=== PATIENT | female | born 1940 | race Caucasian/White ===

== ENCOUNTER 2016-12-03 19:01 | Emergency (ER) | payer OTHER, MEDICARE ==
[~2016-12-03] VITALS: Ht 165.1 cm; Wt 113.1 kg
[~2016-12-03 19:01] MED LIST: ALLO300T2 PO; AMLO-110 PO; FRS/40 PO; LEVO150T PO; METO50TA16 PO; TYL325X PO
[2016-12-03 19:05] VITALS: TEMP 37.1; Ht 165.1 cm; Wt 113.1 kg
[2016-12-03] MEDS ORDERED: HYDROCODONE/ACETAMOPHEN 5/325MG TAB PO STA (19:27)
[2016-12-03 20:04] LABS: BASO % 0.4 %; BASO ABS # 0.04 K/uL (0-0.2); COMPLETE YES; EOS % 1.3 %; HEMATOCRIT 40.2 % (37-47); IG% 0.2 %; LYMPH % 18.9 %; LYMPH ABS # 1.79 K/uL (1.2-3.4); MEAN CELL VOLUME 103.9 fL (80-100); MEAN CORPUSCULAR HEMOGLOBIN 34.6 pg (25-34); MEAN CORPUSCULAR HGB CONC 33.3 g/dl (32-36); MEAN PLATELET VOLUME 10.9 fL (7.4-10.4); MONO % 6.3 %; NEUT % 72.9 %; PLATELET COUNT 106 K/uL (130-400); RED BLOOD COUNT 3.87 M/uL (4.2-5.4); WHITE BLOOD COUNT 9.46 K/uL (4.8-10.8)
--- NOTE | 2016-12-03 20:12 | EMERGENCY ROOM VISIT NOTE ---
History Report prepared by Marichuy: Rigoberto Reese Under the Supervision of: Dr. Nora Hankins D.O. First contact with patient: 19:12 Chief Complaint: SHOULDER PAIN Stated Complaint: LEFT SHOULDER PAIN History of Present Illness The patient is a 76 year old female who presents to the Emergency Room with complaints of constant shoulder pain beginning 3 days ago. She reports that her shoulder pain does not go down her arms. She reports that she had a triple bypass last December that was accompanied by shoulder pain but notes that her current shoulder pain does not feel similar to her previous pain. The patient also states that she has back pain that is centralized in her upper back. She reports that she had two previous lower back surgeries but has no previous history of upper back pain. She notes that her pain is improved by heat but worsens when she uses her walker. The patient also complains of diaphoresis. She denies any numbness, headache, SOB, chest pain, and nausea. She notes taking a Tylenol for her pain, but states that she did not take an aspirin due to being on dialysis. She notes a low BP this morning when she was receiving her dialysis treatment. Source of History: patient Onset: three days ago Position: shoulder (left) Timing: constant Modifying Factors (Worsening): movement (with her walker) Modifying Factors (Relieving): heat Associated Symptoms: + diaphoresis, No headache, No chest pain, No SOB, No nausea, No numbness Review of Systems See HPI for pertinent positives & negatives. A total of 10 systems reviewed and were otherwise negative. Past Medical & Surgical Medical Problems: (1) Anemia (2) Benign hypertension (3) Diabetes mellitus (4) Kidney stone (5) Postmenopausal bleeding (6) Recurrent urinary tract infection Surgical Problems: (1) Back surgery (2) Cholecystectomy Family History Diabetes mellitus FH: gallbladder disease FH: heart disease Hypertension Social History Smoking Status: Never Smoker Alcohol Use: none Drug Use: none Marital Status: Housing Status: lives alone Occupation Status: unemployed Current/Historical Medications Scheduled Aspirin (Aspirin Ec), 81 MG PO DAILY Atorvastatin (Lipitor), 80 MG PO QPM Calcium Acetate (Phoslo 667 Mg), 1 CAP PO SNACKS Calcium Acetate (Phosphate Bin (Phoslo 667 Mg), 3 CAN PO TIDM Cyclobenzaprine Hcl (Flexeril), 5 MG PO TID Epoetin Marv (Epogen), 10,000 UNITS SQ 3XWK Famotidine (Famotidine), 20 MG PO DAILY Levothyroxine Sodium (Levothyroxine Sodium), 150 MCG PO DAILY [Pro Renal Vitamin], 1 TAB PO DAILY Scheduled PRN Hydrocodon/Acetaminophen 5MG/300MG (Vicodin (5MG/300MG)), 1 TAB PO Q6H PRN for Pain Laxative (Laxative), 1 CAP PO DAILY PRN for Constipation Lorazepam (Lorazepam), 1 MG PO DAILY PRN for Anxiety Tramadol HCl (Tramadol HCl), 1 TAB PO BID PRN for Pain Allergies Coded Allergies: Oxycodone (Verified Allergy, Unknown, nausea, 05/27/15) Penicillins (Verified Allergy, Unknown, SWELLING/HIVES, 05/27/15) DOCTOR TOLD MOTHER WHEN SHE WAS 10 YEARS OLD SHE SHOULDN'T TAKE IT. Physical Exam Vital Signs Date Time Temp Pulse Resp B/P (MAP) Pulse Ox O2 Delivery O2 Flow Rate FiO2 12/03/16 21:52 70 20 107/63 94 Room Air 12/03/16 20:55 79 20 125/52 93 Room Air 12/03/16 19:05 37.1 92 20 135/69 94 Room Air Physical Exam GENERAL: alert, well appearing, well nourished, no distress, non-toxic EYE EXAM: normal conjunctiva, PERRL and EOM's grossly intact OROPHARYNX: no exudate, no erythema, lips, buccal mucosa, and tongue normal and mucous membranes are moist NECK: supple, no nuchal rigidity, no adenopathy, non-tender, no step off, no midline tenderness LUNGS: Clear to auscultation. Normal chest wall mechanics HEART: no murmurs, S1 normal and S2 normal ABDOMEN: abdomen soft, non-tender, normo-active bowel sounds, no masses, no rebound or guarding. BACK: Back is symmetrical on inspection and there is no deformity, no midline tenderness, no CVA tenderness, mild tenderness to palpation to left trapezius SKIN: no rashes and no bruising UPPER EXTREMITIES: upper extremities are grossly normal, left upper extremity with fistula, positive thrill, positive bruit LOWER EXTREMITIES: No pitting edema. NEURO EXAM: Normal sensorium, cranial nerves II-XII [grossly] intact, normal speech, no [gross] weakness of arms, no [gross] weakness of legs. [No drift. Finger to nose intact. Gross sensation intact.] Medical Decision & Procedures ER Provider Diagnostic Interpretation: Radiology results have been interpreted by the radiologist and reviewed by me. CHEST ONE VIEW PORTABLE HISTORY: left shoulder pain COMPARISON: Chest 12/23/2015. FINDINGS: Poststernotomy changes. The heart remains mildly enlarged. No pleural effusions. No pneumothorax. No focal lung consolidations to suggest pneumonia. Mild interstitial thickening which is likely chronic. This remains unchanged. No evidence for pulmonary edema. IMPRESSION: Stable mild cardiomegaly and mild chronic interstitial thickening. No acute process within the chest. Electronically signed by: Norbert Lanza M.D. 12/03/2016 8:33 PM LEFT SHOULDER 3 VIEWS HISTORY: left shoulder pain COMPARISON: None. FINDINGS: There is no fracture or dislocation. The left clavicle is intact. Small focal calcification at the distal supraspinatus tendon. Mild degenerative changes within the acromioclavicular and glenohumeral joints. IMPRESSION: 1. No acute fracture or dislocation within the left shoulder. 2. Supraspinatus calcific tendinitis. Electronically signed by: Norbert Lanza M.D. 12/03/2016 8:32 PM Laboratory Results 12/03/16 19:50 Red Blood Count 3.87, Mean Corpuscular Volume 103.9, Mean Corpuscular Hemoglobin 34.6, Mean Corpuscular Hemoglobin Concent 33.3, Mean Platelet Volume 10.9, Neutrophils (%) (Auto) 72.9, Lymphocytes (%) (Auto) 18.9, Monocytes (%) ( Auto) 6.3, Eosinophils (%) (Auto) 1.3, Basophils (%) (Auto) 0.4, Neutrophils # ( Auto) 6.89, Lymphocytes # (Auto) 1.79, Monocytes # (Auto) 0.60, Eosinophils # ( Auto) 0.12, Basophils # (Auto) 0.04 12/03/16 19:50 Test 12/03/16 19:50 White Blood Count 9.46 K/uL (4.8-10.8) Red Blood Count 3.87 M/uL (4.2-5.4) Hemoglobin 13.4 g/dL (12.0-16.0) Hematocrit 40.2 % (37-47) Mean Corpuscular Volume 103.9 fL (80-100) Mean Corpuscular Hemoglobin 34.6 pg (25-34) Mean Corpuscular Hemoglobin Concent 33.3 g/dl (32-36) Platelet Count 106 K/uL (130-400) Mean Platelet Volume 10.9 fL (7.4-10.4) Neutrophils (%) (Auto) 72.9 % Lymphocytes (%) (Auto) 18.9 % Monocytes (%) (Auto) 6.3 % Eosinophils (%) (Auto) 1.3 % Basophils (%) (Auto) 0.4 % Neutrophils # (Auto) 6.89 K/uL (1.4-6.5) Lymphocytes # (Auto) 1.79 K/uL (1.2-3.4) Monocytes # (Auto) 0.60 K/uL (0.11-0.59) Eosinophils # (Auto) 0.12 K/uL (0-0.5) Basophils # (Auto) 0.04 K/uL (0-0.2) RDW Standard Deviation 57.7 fL (36.4-46.3) RDW Coefficient of Variation 15.4 % (11.5-14.5) Immature Granulocyte % (Auto) 0.2 % Immature Granulocyte # (Auto) 0.02 K/uL (0.00-0.02) Anion Gap 9.0 mmol/L (3-11) Est Creatinine Clear Calc Drug Dose 10.9 ml/min Estimated GFR () 8.0 Estimated GFR (Non- 6.9 BUN/Creatinine Ratio 4.0 (10-20) Calcium Level 9.7 mg/dl (8.5-10.1) Total Bilirubin 0.4 mg/dl (0.2-1) Aspartate Amino Transf (AST/SGOT) 23 U/L (15-37) Alanine Aminotransferase (ALT/SGPT) 26 U/L (12-78) Alkaline Phosphatase 83 U/L (45-117) Troponin I 0.023 ng/ml (0-0.045) Total Protein 8.1 gm/dl (6.4-8.2) Albumin 3.4 gm/dl (3.4-5.0) Globulin 4.7 gm/dl (2.5-4.0) Albumin/Globulin Ratio 0.7 (0.9-2) Laboratory results per my review. Medications Administered Medications (Trade) Dose Ordered Sig/Mariano Route Start Time Stop Time Status Last Admin Dose Admin Acetaminophen/ Hydrocodone Bitart ([place] 5/325 Tab) 1 tab NOW STAT PO 12/03/16 19:27 12/03/16 19:29 DC 12/03/16 19:37 1 TAB Cyclobenzaprine HCl (Flexeril Tab) 5 mg NOW STAT PO 12/03/16 21:02 12/03/16 21:03 DC 12/03/16 21:22 5 MG ED Course 1918: The patient was evaluated in room C5. A complete history and physical exam was performed. 1926: [place] 5/325 Tab 1 tab PO 2056: I reevaluated and updated the patient 2101: Flexeril Tab 5mg PO Medical Decision Differential diagnosis: Etiologies such as cardiac ischemia, aortic dissection, pulmonary embolism, pneumonia, pneumothorax, musculoskeletal, infections, pericarditis, myocarditis , esophageal rupture, gastrointestinal, as well as others were entertained. Doubt posterior left shoulder and left upper back pain related to ACS, dissection, perf, gi bleed, pneumothorax, infiltrate. Trop negative after >24 hrs of pain. Pt well appearing here. VS stable, no hypoxia. Doubt complication of HD. Pt has been compliant. Doubt occult infection. Doubt PE. pt well appearing and improved following muscle relaxer. Discussed with her follow-up with PCP. More suspicious given left paraspinal origin of pain that sx possibly from lower cervical radiculopathy, DDD/DJD of upper back and neck in light of body habitus/prior back hx. Discussed with pt sx to watch/return for, use of meds including adr's, she verbalized understanding and was agreeable with plan. Medication Reconcilliation Current Medication List: was personally reviewed by me Blood Pressure Screening Patient's blood pressure: Normal blood pressure Blood pressure disposition: Did not require urgent referral Impression Primary Impression: Shoulder pain, left Scribe Attestation The scribe's documentation has been prepared under my direction and personally reviewed by me in its entirety. I confirm that the note above accurately reflects all work, treatment, procedures, and medical decision making performed by me. Departure Information Dispostion Home / Self-Care Prescriptions Hydrocodon/Acetaminophen 5MG/300MG (VICODIN (5MG/300MG)) 1 Tab Tab 1 TAB PO Q6H Y for Pain, #10 TAB Prov: Nora HankinsTristan, DO 12/03/16 Cyclobenzaprine Hcl (FLEXERIL) 5 Mg Tab 5 MG PO TID for Pain, #20 TAB PRN Prov: Nora Hankins, DO 12/03/16 Referrals Jac Katz D.O. (PCP) Forms HOME CARE DOCUMENTATION FORM, IMPORTANT VISIT INFORMATION Patient Instructions My [facility] Additional Instructions Please follow up with your family doctor. You may need additional imaging of your neck and upper back if your symptoms persist. If you develop worsening pain, develop weakness in the arm, develop numbness or tingling, develop fevers , headaches, vision changes, dizziness, vomiting, or you have any other new concerns, please return the emergency room. Problem Qualifiers Primary Impression: Shoulder pain, left Chronicity: acute Qualified Codes: M25.512 - Pain in left shoulder
--- NOTE | 2016-12-03 20:34 | DIAGNOSTIC IMAGING REPORT ---
LEFT SHOULDER 3 VIEWS HISTORY: left shoulder pain COMPARISON: None. FINDINGS: There is no fracture or dislocation. The left clavicle is intact. Small focal calcification at the distal supraspinatus tendon. Mild degenerative changes within the acromioclavicular and glenohumeral joints. IMPRESSION: 1. No acute fracture or dislocation within the left shoulder. 2. Supraspinatus calcific tendinitis. Electronically signed by: Norbert Lanza M.D. 12/03/2016 8:32 PM Dictated Date/Time: 12/03/2016 8:31 PM
--- NOTE | 2016-12-03 20:35 | DIAGNOSTIC IMAGING REPORT ---
CHEST ONE VIEW PORTABLE HISTORY: left shoulder pain COMPARISON: Chest 12/23/2015. FINDINGS: Poststernotomy changes. The heart remains mildly enlarged. No pleural effusions. No pneumothorax. No focal lung consolidations to suggest pneumonia. Mild interstitial thickening which is likely chronic. This remains unchanged. No evidence for pulmonary edema. IMPRESSION: Stable mild cardiomegaly and mild chronic interstitial thickening. No acute process within the chest. Electronically signed by: Norbert Lanza M.D. 12/03/2016 8:33 PM Dictated Date/Time: 12/03/2016 8:33 PM
[2016-12-03] MEDS ORDERED: LEVO150T9 PO (20:36)
[2016-12-03] MEDS ORDERED: ASPI81TA28 PO (20:36)
[2016-12-03] MEDS ORDERED: ULT50 PO (20:36)
[2016-12-03] MEDS ORDERED: [UNRECOGNIZED DRUG - OTHER] PO (20:36)
[2016-12-03] MEDS ORDERED: LXT PO (20:36)
[2016-12-03] MEDS ORDERED: ATV1 PO (20:36)
[2016-12-03] MEDS ORDERED: EPOE10003 SQ (20:36)
[2016-12-03] MEDS ORDERED: ATOR-26 PO (20:36)
[2016-12-03] MEDS ORDERED: FAMO1TAB47 PO (20:36)
[2016-12-03] MEDS ORDERED: CALC667C PO (20:36)
[2016-12-03] MEDS ORDERED: CALC667C4 PO (20:36)
[2016-12-03 20:37] LABS: ALB/GLOB RATIO 0.7 (0.9-2); CALCIUM 9.7 mg/dl (8.5-10.1); CREATININE 5.58 mg/dl (0.60-1.20); POTASSIUM 4.9 mmol/L (3.5-5.1)
[2016-12-03] MEDS ORDERED: CYCLOBENZAPRINE HCL 5 MG TAB PO STA (21:02)
[2016-12-03] MEDS ORDERED: HYDR-3419 PO (21:44)
[2016-12-03] MEDS ORDERED: CYCL5TAB PO (21:44)
[2016-12-03 21:52] VITALS: BP 107/63; PULSE 70; O2SAT 94
== END 2016-12-03 22:00 | disposition home or self-care (01) ==
LOC: C.EDB 19:02 → C.EDC 22:00
DX: M25.512 Pain in left shoulder (principal); I10 Essential (primary) hypertension; E11.9 Type 2 diabetes mellitus without complications; D64.9 Anemia, unspecified; Z87.440 Personal history of urinary (tract) infections; Z87.442 Personal history of urinary calculi; Z90.49 Acquired absence of other specified parts of digestive tract; Z98.890 Other specified postprocedural states; Z79.82 Long term (current) use of aspirin; Z79.899 Other long term (current) drug therapy; Z88.0 Allergy status to penicillin; Z88.5 Allergy status to narcotic agent; Z83.3 Family history of diabetes mellitus; Z83.79 Family history of other diseases of the digestive system; Z82.49 Family history of ischemic heart disease and other diseases of the circulatory system

== ENCOUNTER → 2017-03-04 | Outpatient (CLI) | payer OTHER, MEDICARE ==
[~2017-03-04] MED LIST changes: -ALLO300T2 PO; -AMLO-110 PO; +ASPI81TA28 PO; +ATOR-26 PO; +ATV1 PO; +CALC667C PO; +CALC667C4 PO; +EPOE10003 SQ; +FAMO1TAB47 PO; -FRS/40 PO; +HYDR-3419 PO; -LEVO150T PO; +LEVO150T9 PO; +LXT PO; -METO50TA16 PO; -TYL325X PO; +ULT50 PO; +[UNRECOGNIZED DRUG - OTHER] PO
[2017-03-04 14:09] LABS: INFLUENZA B ANTIGEN Neg for Influ B (NEG)
== END | disposition home or self-care (01) ==
LOC: C.LAB 10:18
PROVIDERS: ATTEND Internal Medicine Nephrology
DX: R50.9 Fever, unspecified (principal)

== ENCOUNTER → 2017-03-12 | Outpatient (CLI) | payer OTHER, MEDICARE ==
--- NOTE | 2017-03-12 10:46 | DIAGNOSTIC IMAGING REPORT ---
RENAL ULTRASOUND HISTORY: R31.0 Gross hematuria For recurrent gross [id number] COMPARISON: None. FINDINGS: Right kidney: 9.1 cm. No hydronephrosis. Heterogeneous renal sinus. Severe cortical thinning. Left kidney: 9.2 cm. No hydronephrosis. Heterogeneous renal sinus and severe cortical thinning. A 5.1 x 5.6 x 4.7 cm upper pole cyst. Bladder: Not visualized. IMPRESSION: 1. No hydronephrosis. 2. Left renal cyst. 3. Significant atrophy/cortical thinning bilaterally. Electronically signed by: Norbert Lanza M.D. 03/12/2017 10:45 AM Dictated Date/Time: 03/12/2017 10:41 AM
== END | disposition home or self-care (01) ==
LOC: C.ULTR 09:17
PROVIDERS: ATTEND Internal Medicine Nephrology
DX: R31.0 Gross hematuria (principal); N28.1 Cyst of kidney, acquired; N26.1 Atrophy of kidney (terminal)

== ENCOUNTER → 2017-03-25 | Outpatient (CLI) | payer OTHER, MEDICARE ==
[2017-03-25 14:08] LABS: ALBUMIN 3.3 gm/dl (3.4-5.0); ALKALINE PHOSPHATASE 83 U/L (45-117); ALT/SGPT 27 U/L (12-78); AST/SGOT 26 U/L (15-37); BLOOD UREA NITROGEN 13 mg/dl (7-18); CALCIUM 8.6 mg/dl (8.5-10.1); CARBON DIOXIDE 33 mmol/L (21-32); CREATININE 4.42 mg/dl (0.60-1.20); GLUCOSE 95 mg/dl (70-99); POTASSIUM 3.3 mmol/L (3.5-5.1); SODIUM 133 mmol/L (136-145); TOTAL PROTEIN 8.5 gm/dl (6.4-8.2)
== END | disposition home or self-care (01) ==
LOC: C.LABBFT 10:33
PROVIDERS: ATTEND Urology
DX: N18.6 End stage renal disease (principal)

== ENCOUNTER → 2017-03-28 | Outpatient (CLI) | payer OTHER, MEDICARE ==
--- NOTE | 2017-03-28 10:59 | DIAGNOSTIC IMAGING REPORT ---
CHEST 2 VIEWS ROUTINE HISTORY: 77 years-old Female R05 COUGH acute cough COMPARISON: Chest radiograph 12/03/2016 TECHNIQUE: PA and lateral views of the chest FINDINGS: Cardiac silhouette is again mildly enlarged. Atherosclerosis of the aorta. Prior median sternotomy. No pneumothorax, pleural effusion, focal airspace consolidation or overt pulmonary edema. Bones of the chest appear grossly intact. Calcific tendinosis of the left shoulder. Multilevel endplate spurring of the spine. Surgical clips are seen within the upper abdomen. IMPRESSION: No acute process The above report was generated using voice recognition software. It may contain grammatical, syntax or spelling errors. Electronically signed by: Vikas Bah M.D. 03/28/2017 10:57 AM Dictated Date/Time: 03/28/2017 10:56 AM
== END | disposition home or self-care (01) ==
LOC: C.RAD1850 10:29
PROVIDERS: ATTEND Family Medicine Hospice and Palliative Medicine
DX: R05 Cough (principal)

== ENCOUNTER → 2017-04-08 | Outpatient (CLI) | payer OTHER, MEDICARE ==
[~2017-04-08] MED LIST changes: +OPTIRAY 320 IV PRN
--- NOTE | 2017-04-08 09:28 | DIAGNOSTIC IMAGING REPORT ---
CT OF THE ABDOMEN AND PELVIS WITH AND WITHOUT CONTRAST HEMATURIA PROTOCOL CLINICAL HISTORY: Gross hematuria. End-stage renal disease. COMPARISON STUDY: Renal ultrasound March 12, 2017. TECHNIQUE: Unenhanced and split pulse phase imaging of the abdomen and pelvis was performed. Injection of 93 cc Optiray 320 IV was uneventful. A dose lowering technique was utilized adhering to the principles of ALARA. The patient is scheduled for dialysis following this exam. CT DOSE: 2496.64 mGycm FINDINGS: Visualized portions of the lower chest demonstrate moderate cardiomegaly and extensive coronary artery calcification. The liver is cirrhotic. There is no biliary ductal dilatation status post cholecystectomy. No hepatic lesions are identified although sensitivity for detection of hypervascular lesions is diminished on this venous phase study. The spleen is mildly enlarged. The adrenal glands and pancreas are unremarkable. Note is made of a 5.9 cm left renal cyst. There are several subcentimeter renal lesions which are too small to characterize. There is marked bilateral renal atrophy. There is no hydronephrosis or hydroureter. There is no significant excretion of contrast into the collecting systems, likely due to chronic renal failure. No renal, bladder ureteral calculi are identified. Sensitivity for detection of urothelial lesions is diminished given lack of opacification. The bladder is collapsed and therefore suboptimally assessed. There is no abdominal fluid collection. A few mildly enlarged upper abdominal lymph nodes are nonspecific in the setting of cirrhosis. There is no bowel obstruction. There are no suspicious osseous lesions. There are postoperative findings within the spine. The uterus is surgically absent. IMPRESSION: 1. No CT findings to explain hematuria however sensitivity for detection of urothelial lesions significantly diminished given the lack of significant excretion of contrast into the collecting systems due to renal failure as well as a collapsed bladder. 2. 5.9 cm left renal cyst. 3. Cirrhosis with mild hepatomegaly which favors portal hypertension. 4. Moderate cardiomegaly with extensive coronary artery calcification. Electronically signed by: Jt Justin M.D. 04/08/2017 9:26 AM Dictated Date/Time: 04/08/2017 9:03 AM
== END | disposition home or self-care (01) ==
LOC: C.CTS 08:21
PROVIDERS: ATTEND Urology
DX: N28.1 Cyst of kidney, acquired (principal); N18.6 End stage renal disease; R31.0 Gross hematuria

== ENCOUNTER → 2017-04-22 | Outpatient (CLI) | payer OTHER, MEDICARE ==
[~2017-04-22] MED LIST changes: -OPTIRAY 320 IV PRN
== END | disposition home or self-care (01) ==
LOC: C.PATHSPEC 10:09
PROVIDERS: ATTEND Urology
DX: D49.4 Neoplasm of unspecified behavior of bladder (principal)

== ENCOUNTER → 2017-06-06 | Day surgery (SDC) | payer OTHER, MEDICARE ==
[2017-05-22 14:00] VITALS: BMI 42.0
--- NOTE | 2017-05-22 14:54 | PAT Medication Instructions ---
Service Date May 22, 2017. Current Home Medication List Acetaminophen (Tylenol), 1,000 MG PO UD PRN for Pain Aspirin (Aspirin Ec), 81 MG PO QAM Atorvastatin (Lipitor), 40 MG PO QDD Calcium Acetate (Phoslo 667 Mg), 3 CAP PO DAILY WITH MEALS Epoetin Marv (Epogen), 10,000 UNITS SQ UD Famotidine (Famotidine), 20 MG PO QAM Hydrocodon/Acetaminophen 5MG/300MG (Vicodin (5MG/300MG)), 1 TAB PO UD PRN for Pain Laxative (Laxative), 1 CAP PO DAILY PRN for Constipation Levothyroxine Sodium (Levothyroxine Sodium), 150 MCG PO QAM Lorazepam (Lorazepam), 1 MG PO DAILY PRN for Anxiety [Heparin / Dialysis ], Unknown Dose INJ UD [Pro Renal + D], 1 CAP PO QAM Medication Instructions For Your Scheduled Surgery -Follow your instructions from the dialysis clinic and your kidney doctor: Epoetin Marv (Epogen), 10,000 UNITS SQ UD [Heparin / Dialysis ], Unknown Dose INJ UD - Hold the following medications 7 days prior to surgery per your surgeon's instructions (OK with PCP): Aspirin (Aspirin Ec), 81 MG PO QAM - Hold the following medications the morning of surgery: Calcium Acetate (Phoslo 667 Mg), 3 CAP PO DAILY WITH MEALS Laxative (Laxative), 1 CAP PO DAILY PRN for Constipation [Pro Renal + D], 1 CAP PO QAM - Take the following medications the morning of surgery with a sip of water: Acetaminophen (Tylenol), 1,000 MG PO UD PRN for Pain (if needed, can be taken up to four hours before surgery) Famotidine (Famotidine), 20 MG PO QAM Hydrocodon/Acetaminophen 5MG/300MG (Vicodin (5MG/300MG)), 1 TAB PO UD PRN for Pain (if needed, can be taken up to four hours before surgery) Levothyroxine Sodium (Levothyroxine Sodium), 150 MCG PO QAM Lorazepam (Lorazepam), 1 MG PO DAILY PRN for Anxiety (if needed) - Take the following medications as scheduled the night before surgery: Acetaminophen (Tylenol), 1,000 MG PO UD PRN for Pain (if needed) Atorvastatin (Lipitor), 40 MG PO QDD Calcium Acetate (Phoslo 667 Mg), 3 CAP PO DAILY WITH MEALS Hydrocodon/Acetaminophen 5MG/300MG (Vicodin (5MG/300MG)), 1 TAB PO UD PRN for Pain (if needed) Laxative (Laxative), 1 CAP PO DAILY PRN for Constipation (if needed) Lorazepam (Lorazepam), 1 MG PO DAILY PRN for Anxiety (if needed) If you have any questions please call us at [phone] or [phone] or [phone]
[2017-05-22 15:11] LABS: BASO % 0.3 %; BASO ABS # 0.02 K/uL (0-0.2); EOS % 1.5 %; EOS ABS # 0.11 K/uL (0-0.5); HEMATOCRIT 38.3 % (37-47); HEMOGLOBIN 12.7 g/dL (12.0-16.0); IG# 0.03 K/uL (0.00-0.02); LYMPH % 17.6 %; LYMPH ABS # 1.31 K/uL (1.2-3.4); MEAN CELL VOLUME 103.2 fL (80-100); MEAN CORPUSCULAR HEMOGLOBIN 34.2 pg (25-34); MEAN CORPUSCULAR HGB CONC 33.2 g/dl (32-36); MONO ABS # 0.52 K/uL (0.11-0.59); NEUT % 73.2 %; NEUT ABS # 5.46 K/uL (1.4-6.5); PLATELET COUNT 101 K/uL (130-400); RED CELL DISTRIBUTION WIDTH CV 15.1 % (11.5-14.5); RED CELL DISTRIBUTION WIDTH SD 56.6 fL (36.4-46.3); WHITE BLOOD COUNT 7.45 K/uL (4.8-10.8)
[2017-05-22 15:18] LABS: CALCIUM 8.5 mg/dl (8.5-10.1); CREATININE 4.36 mg/dl (0.60-1.20); POTASSIUM 3.4 mmol/L (3.5-5.1)
[~2017-06-06] VITALS: Ht 165.1 cm; Wt 114.6 kg
[~2017-06-06] MED LIST changes: +ACET-1256 PO; -ATOR-26 PO; +ATROPINE SULFATE 0.1 MG/ML 5ML SYR IV PRN; +BELLADONNA/OPIUM SUPP 60 MG SUPP PR ONE; +BELLADONNA/OPIUM SUPP 60 MG SUPP PR PRN; -CALC667C PO; +CIPR250T3 PO; +CIPROFLOXACIN 200MG / D5W IV SCH; +DEXAMETHASONE SOD INJ 4 MG/ML VIAL ONE; +DIALYSIS INJ; +EpHEDrine SULFATE INJ 50 MG/ML AMP IV PRN; +FENTANYL CITRATE INJ 50 MCG/1 ML 2 ML VIAL IV PRN; +FENTANYL CITRATE INJ 50 MCG/1 ML 2 ML VIAL ONE; +HEPARIN INJ; +LIDOCAINE HCL 2% 2 ML VIAL (20MG/ML) ONE; +LPT/40 PO; +MIDAZOLAM HCL 1 MG/ML 2ML VIAL ONE; +ONDANSETRON INJ 2 MG/ML 2 ML VIAL ONE; +OXYCODONE/ACETAMINOPHEN 7.5-325 TAB PO PRN; +PHENYLEPHRINE 100MCG/ML 5ML SYR ONE; +PRO RENAL PO; +PROPOFOL IV EMULSION 10 MG/ML 20 ML VIAL IV ONE; +SODIUM CHLORIDE 0.9% 1000ML 1,000 ML IV SCH; -ULT50 PO; +[UNRECOGNIZED DRUG - OTHER] PO; -[UNRECOGNIZED DRUG - OTHER] PO
[2017-06-06 05:54] VITALS: BP 138/69; PULSE 84; TEMP 36.5; O2SAT 97; Ht 165.1 cm; Wt 114.6 kg
[2017-06-06 06:52] LABS: CALCIUM 9.5 mg/dl (8.5-10.1); CREATININE 5.8 mg/dl (0.60-1.20); POTASSIUM 3.3 mmol/L (3.5-5.1)
--- NOTE | 2017-06-06 06:56 | History & Physical Bridge Note ---
H&P Re-Evaluation Bridge Note: I have examined the patient, reviewed the History & Physical and in the interval since the performance of the History & Physical I have noted the following changes of clinical significance: No changes noted
--- NOTE | 2017-06-06 07:09 | Discharge Instructions ---
Discharge Instructions Date of Service Jun 06, 2017. Admission Reason for Admission: Bladder Tumor Discharge Discharge Diagnosis / Problem: Bladder Lesion Discharge Goals Goal(s): Decrease discomfort, Improve function Activity Recommendations Activity Limitations: resume your previous activity Lifting Limitations: gradually increase as tolerated Exercise/Sports Limitations: gradually increase as tolerated Shower/Bathe: no limitations . Instructions / Follow-Up Instructions / Follow-Up May have blood in urine. May have pelvic discomfort. May have pressure or discomfort. Finish antibiotic. Patient has Dialysis on Friday morning. Continue with this scheduled. Current Hospital Diet Patient's current hospital diet: Discharge Diet Recommended Diet: Regular Diet Procedures Procedures Performed: TURBT Pending Studies Studies pending at discharge: no Medical Emergencies . Who to Call and When: Medical Emergencies: If at any time you feel your situation is an emergency, please call 911 immediately. . Non-Emergent Contact Non-Emergency issues call your: Primary Care Provider, Urologist Call Non-Emergent contact if: you have a fever, temperature is above 101, temperature is above 101.5, your pain is not controlled, your pain is worsening , your pain is unusual for you . . "Provider Documentation" section prepared by Dimas Blackburn. .
--- NOTE | 2017-06-06 08:21 | [facility] Operative Report ---
Operative Report Operative Date Jun 06, 2017. Pre-Operative Diagnosis Gross Hematuria, Bladder Mass Post-Operative Diagnosis Same Procedure(s) Performed TURBT, April Surgeon Alexey Estimated Blood Loss Minimal Findings Masses/Lesions of bladder x 3. Approx 7.2 cm total Specimens 1. Bladder Mass Midline bladder neck 2. Bladder Mass Posterior wall 3. Bladder Mass Left Lateral wall Drains 18 Fr Smith Anesthesia Type General Complication(s) none Disposition Recovery Room / PACU Indications Bladder mass found during hematuria workup. Risks and benefits discussed at length. Description of Procedure Patient was consented and brought back to the operating room. Patient was placed under anesthesia in the supine position and moved to the dorsal lithotomy position. Patient was prepped and draped in the regular sterile fashion. A time out was completed. A 30degree Cystoscope was placed into the bladder and the entire bladder was examined. The UO's were identified. The lesions were identified. The scope was removed and a resection scope was placed. The lesions were resected and tissue was sent for pathologic analysis. The wound bed and edges of the lesions were fulgurated. With the 3 lesions resected, the bladder was inspected and smaller lesions were fulgurated. No other lesions, masses, or areas of concern were noted. Bladder lesions were papillary lesions at bladder neck (2 cm), posterior wall (2cm), and left lateral wall (3cm). All tumor was irrigated separately and sent for analysis. A smith was placed and the bladder was emptied. The scope was removed. The patient was cleaned, aroused from anesthesia, and transferred to the pacu in stable condition having tolerated the procedure well with no complications. I was present and participated in all aspects of the procedure. The patient will be monitored in the PACU until transferred. I attest to the content of the Intraoperative Record and any orders documented therein. Any exceptions are noted below.
--- NOTE | 2017-06-06 09:05 | Anesthesiology Progress Note ---
Anesthesia Post Op Note Date & Time Jun 06, 2017 at 09:04 Vital Signs Pain Intensity: 3 Vital Signs Past 12 Hours Date Time Temp Pulse Resp B/P (MAP) Pulse Ox O2 Delivery O2 Flow Rate FiO2 06/06/17 09:01 36.5 132/63 06/06/17 08:57 81 17 96 06/06/17 08:57 81 17 06/06/17 08:56 129/66 06/06/17 08:52 79 17 100 06/06/17 08:52 79 17 06/06/17 08:51 133/66 06/06/17 08:47 80 06/06/17 08:47 80 12 100 06/06/17 08:46 127/65 06/06/17 08:42 84 12 100 06/06/17 08:42 84 12 06/06/17 08:41 128/68 06/06/17 08:37 85 12 06/06/17 08:37 85 12 100 06/06/17 08:36 137/70 06/06/17 08:35 138/75 06/06/17 08:27 36.6 90 16 139/70 99 Oxymask 6 06/06/17 05:54 36.5 84 18 138/69 (92) 97 Room Air Notes Mental Status: alert / awake / arousable, participated in evaluation Pt Amnestic to Procedure: Yes Nausea / Vomiting: adequately controlled Pain: adequately controlled Airway Patency, RR, SpO2: stable & adequate BP & HR: stable & adequate Hydration State: stable & adequate Anesthetic Complications: no major complications apparent
[2017-06-06 09:20] VITALS: BP 142/64; PULSE 84; TEMP 36.7; O2SAT 95
[2017-06-06 09:50] VITALS: BP 138/62; PULSE 80; PULSE 86; TEMP 36.6; O2SAT 93
[2017-06-06 10:10] VITALS: BP 125/69; PULSE 86; O2SAT 92
== END | disposition home or self-care (01) ==
LOC: C.ACU 05:04
PROVIDERS: ATTEND Urology
DX: C67.5 Malignant neoplasm of bladder neck (principal); C67.4 Malignant neoplasm of posterior wall of bladder; C67.2 Malignant neoplasm of lateral wall of bladder; I25.2 Old myocardial infarction; I25.10 Atherosclerotic heart disease of native coronary artery without angina pectoris; Z95.1 Presence of aortocoronary bypass graft; N18.9 Chronic kidney disease, unspecified; Z99.2 Dependence on renal dialysis; E11.22 Type 2 diabetes mellitus with diabetic chronic kidney disease; E03.9 Hypothyroidism, unspecified; E78.5 Hyperlipidemia, unspecified; E66.01 Morbid (severe) obesity due to excess calories; Z68.41 Body mass index [BMI] 40.0-44.9, adult; Z88.0 Allergy status to penicillin; Z79.82 Long term (current) use of aspirin; Z79.899 Other long term (current) drug therapy; Z85.828 Personal history of other malignant neoplasm of skin

== ENCOUNTER → 2017-08-09 | Outpatient (CLI) | payer OTHER, MEDICARE ==
[~2017-08-09] MED LIST changes: +ASPCH81X PO; -ASPI81TA28 PO; -ATROPINE SULFATE 0.1 MG/ML 5ML SYR IV PRN; -BELLADONNA/OPIUM SUPP 60 MG SUPP PR ONE; -BELLADONNA/OPIUM SUPP 60 MG SUPP PR PRN; +CALC1TAB23 PO; +CALC667C PO; +CEPH500C PO; -CIPROFLOXACIN 200MG / D5W IV SCH; -DEXAMETHASONE SOD INJ 4 MG/ML VIAL ONE; -DIALYSIS INJ; +DOCU100C PO; -EPOE10003 SQ; -EpHEDrine SULFATE INJ 50 MG/ML AMP IV PRN; -FAMO1TAB47 PO; +FAMO20TA11 PO; -FENTANYL CITRATE INJ 50 MCG/1 ML 2 ML VIAL IV PRN; -FENTANYL CITRATE INJ 50 MCG/1 ML 2 ML VIAL ONE; -HEPARIN INJ; -HYDR-3419 PO; +HYDR-5688 PO; -LIDOCAINE HCL 2% 2 ML VIAL (20MG/ML) ONE; -LXT PO; -MIDAZOLAM HCL 1 MG/ML 2ML VIAL ONE; +MULT-650 PO; -ONDANSETRON INJ 2 MG/ML 2 ML VIAL ONE; -OXYCODONE/ACETAMINOPHEN 7.5-325 TAB PO PRN; -PHENYLEPHRINE 100MCG/ML 5ML SYR ONE; -PROPOFOL IV EMULSION 10 MG/ML 20 ML VIAL IV ONE; -SODIUM CHLORIDE 0.9% 1000ML 1,000 ML IV SCH; +TRAM-10 PO; +[UNRECOGNIZED DRUG - OTHER] PO; -[UNRECOGNIZED DRUG - OTHER] PO
--- NOTE | 2017-09-05 08:04 | CODING QUERY NO DIAGNOSIS ---
TREATMENT RENDERED WITHOUT A DIAGNOSIS To promote full compliance with coding requirements relating to patient care, physician participation is requested in all cases of hand frame surgical elastic knitter uncertainty. Please assist us with providing a diagnosis/symptom for the test(s) below: A diagnosis/symptom was not documented on your Order. A valid diagnosis/symptom is required to bill all insurances. Please remember that we are unable to code a diagnosis of rule out, probable, possible, questionable, or suspected. Tests that require a diagnosis: DOS: 08/09/17 (Per Patient Access, unable to get order) * Potassium DIAGNOSIS: Provider Signature: Date: Thank you Danay Morgan Health Information Management Once completed, please kindly fax back to [phone] For questions please call [phone]
== END | disposition home or self-care (01) ==
LOC: C.LAB 06:53
PROVIDERS: ATTEND Internal Medicine Nephrology
DX: N17.9 Acute kidney failure, unspecified (principal)

== ENCOUNTER 2019-01-25 16:35 | Inpatient (IN) ==
[2019-01-25] MEDS ORDERED: MoRPHine SULFATE 4 MG/ML 1 ML CARP\\VIAL IV STA (16:59)
--- NOTE | 2019-01-25 17:19 | XRay Report ---
XR chest 1V portable HISTORY: Left-sided Chest Pain COMPARISON: Chest 10/12/2018. FINDINGS: The heart is mildly enlarged. There are poststernotomy changes. There is progressive inters titial vascular thickening consistent with developing pulmonary edema. No new focal lung consolidatio ns to suggest pneumonia. No pleural effusions. No pneumothorax. Right jugular catheter terminates at the distal SVC. IMPRESSION: Cardiomegaly with developing pulmonary edema. Electronically signed by: Norbert Lanza M.D. 01/25/2019 5:18 PM
--- NOTE | 2019-01-25 17:44 | Emergency Department Note ---
Entered by Francesca Mcdonough acting as a scribe for History of Present Illness General Chief complaint: Shoulder Pain Stated complaint: L SHOULDER & BACK PAIN Time Seen by Provider: 01/25/19 16:45 Source: patient and other (nurse) Mode of arrival: EMS Limitations: no limitations History of Present Illness Provider complaint: Shoulder pain Onset (ago): hour(s) (1120 today) Location: upper extremity (shoulder) Severity: similar to prior episodes (myocardial infarction) Pain Consistency: + other (worsening) Current Pain Intensity: 10 Quality: + other (pain) Relieved By: + none Exacerbated By: + none Associated symptoms: + other (Additional symptoms: dry heaves, dry mouth. Denie s: cold symptoms, leg pain/swelling, difficulty breathing); no cough and no fever/chills Treatments prior to arrival: aspirin The patient is a 78 year old female with a history of MS, end stage renal disease on dialysis, CKD, CAD, type 2 diabetes, hypertension, hyperlipidemia, hypothyroidism, and bladder cancer who presents to the Emergency Room with complaints of worsening left shoulder pain starting at 1120 today after returning home from shopping with her cousin. The patient reports that her shoulder is painful to the touch but that nothing worsens her pain. Per nurse, the patient currently rates her pain a 10/10. The patient states that she has had this pain intermittently for the past 6-7 months, which she was told was musculoskeletal. She states that she was given Flexeril, which usually all eviates her pain alongside Tramadol; however, she notes that these medications did not alleviate her pain when she took them 45 minutes ago. She expresses concern because this is the same location she had pain when she had her myocardial infarction in 2016. She adds that she had dry heaves secondary to her pain today and also complains of a dry mouth, but she denies any fevers, cough, cold symptoms, leg pain and swelling, and difficulty breathing. She states that she has not eaten anything today. Per nurse, EMS gave the patient aspirin prior to arrival. The patient adds that she is on Pradaxa to prevent her grafts from clotting. Home Medications Home Medications Medication Instructions Recorded Confirmed Type atorvastatin 40 mg PO HS 01/29/18 12/01/18 History calcium acetate 1,334 mg PO TIDM 01/29/18 12/01/18 History famotidine 20 mg PO QAM 01/29/18 12/01/18 History lorazepam 1 mg PO QPM PRN 01/29/18 12/01/18 History aspirin 81 mg tablet,delayed 81 mg PO DAILY 03/03/18 12/01/18 History release tramadol 50 mg tablet 50 mg PO Q6H 07/20/18 12/01/18 History ProRenal 1 tab PO DAILY 10/12/18 12/01/18 History calcium acetate 667 mg PO .WITH SNACKS 10/12/18 12/01/18 History cyclobenzaprine 5 mg PO BID PRN 10/12/18 12/01/18 History levothyroxine 100 mcg PO SUTUWEFRSA 10/12/18 12/01/18 History levothyroxine 150 mcg PO MOTH 10/12/18 12/01/18 History Allergies Allergy/AdvReac Type Severity Reaction Status Date / Time Penicillins Allergy Unknown SWELLING/HI Verified 12/01/18 13:39 VES oxycodone AdvReac Unknown nausea Verified 12/01/18 13:39 Past Med/Surg History Medical History Aortic stenosis Bladder cancer REASON FOR UPCOMING SURGERY Coronary artery disease MS 2015 WITH EMERGENT CABG X [address] [facility]. RECENTLY TO [facility] ED WITH SHOULDER PAIN SIMILAR TO HER ANGINA. TROPONIN WAS ELEVATED, PT ADMITTED. NO EKGS CHANGES TO SUGGEST ACS. TROPONIN BUMP FELT 2/2 RENAL DISEASE. ECHO WHILE INPT 01/30 SHOWED EF 55-60%, MILD INF WALL HK. Diabetes DIET CONTROLLED ESRD (end stage renal disease) on dialysis DIALYSIS DAYS , & SAT - WEEK OF SURGERY SCHEDULED DAYS ARE FRI, AND SAT FAILED AV FISTULA LUE, ALSO FAILED AND NOW INFECTION L GROIN GRAFT; CURRENTLY USING R CHEST PERMACATH History of hypertension History of myocardial infarction 2016...CATH (NO STENTS) "99% BLOCKED" - TRIPLE BYPASS History of recent hospitalization 02/01/18 - PAIN IN SHOULDER/ED VISIT [facility]/HEART ATTACK RULED OUT- CAUSE POSSIBLE MUSCULAR PROBLEM WITH SHOULDER Morbid obesity with BMI of 40.0-44.9, adult Spinal stenosis Wound infection LEFT GROIN WOUND VAC PLACED 03/18/18. Had a graft placed in L thigh/groin ~6wks ago, subsequent infection and graft removed 02/23/18, now has wound vac. Surgical History Hemodialysis access, AV graft CLOGGED AND SINCE REMOVED /CURRENTLY: DIALYSIS CATH RIGHT CHEST History of back surgery X2/FUSIONS History of cardiac cath 2016...MS..NO STENTS..TRIPLE BYPASS History of colonoscopy History of heart bypass surgery MS..TRIPLE BYPASS 2016 History of hysterectomy Hx of cholecystectomy Family History Other Coronary heart disease Family history non-contributory Social History Preferred Language: Khmer Communication Ability: Effective Scaler Required: No Beliefs That Will Affect Care: None marital status: Current Living Situation: Family Current Living Situation Comment: lives with daughter and son-in-law current occupational status: retired current occupation: worked previously at [employer] Feels Safe at Home: Yes Smoking Status: Never smoker Second Hand Exposure: No ; Hx Alcohol Use: No Hx Substance Use: No Review of Systems See HPI for pertinent positives & negatives. and A total of 10 systems reviewed and were otherwise negative Physical Exam Vital Signs Vital Signs - 24 hr 01/25/19 16:47 01/25/19 17:01 01/25/19 17:32 Temperature 37.8 C H Temperature Source Oral Pulse Rate 109 H 103 H 95 H Pulse Rate from SpO2 Sensor 103 H 95 H Pulse Rhythm Regular Pulse Strength Normal Respiratory Rate 25 H 25 H 20 Respiratory Effort / Characteristics Non-Labored Spontaneous Respiratory Depth Normal Respiratory Pattern Regular Blood Pressure 122/43 L 98/50 L 83/46 L Blood Pressure Mean 69 56 62 Pulse Oximetry 93 93 92 Oxygen Delivery Method Room Air Room Air Room Air Oxygen Flow Rate Sepsis Recent Fever Within 48 Hours No Sepsis New/Unexplained Change in Mental Status No Sepsis Action Taken by Nursing No Action Required 01/25/19 17:33 01/25/19 18:00 01/25/19 18:30 Temperature Temperature Source Pulse Rate 93 H 91 H Pulse Rate from SpO2 Sensor 93 H 92 H Pulse Rhythm Pulse Strength Respiratory Rate 16 16 Respiratory Effort / Characteristics Respiratory Depth Respiratory Pattern Blood Pressure 87/46 L 93/31 L Blood Pressure Mean 57 59 Pulse Oximetry 92 90 96 Oxygen Delivery Method Room Air Oxygen Flow Rate Sepsis Recent Fever Within 48 Hours Sepsis New/Unexplained Change in Mental Status Sepsis Action Taken by Nursing 01/25/19 19:00 Temperature Temperature Source Pulse Rate 94 H Pulse Rate from SpO2 Sensor 94 H Pulse Rhythm Pulse Strength Respiratory Rate 17 Respiratory Effort / Characteristics Respiratory Depth Respiratory Pattern Blood Pressure 94/42 L Blood Pressure Mean 65 Pulse Oximetry 96 Oxygen Delivery Method Nasal Cannula Oxygen Flow Rate 2 Sepsis Recent Fever Within 48 Hours Sepsis New/Unexplained Change in Mental Status Sepsis Action Taken by Nursing CONSTITUTIONAL/VITAL SIGNS: Reviewed / noted above. GENERAL: Non-toxic in appearance. INTEGUMENTARY: Warm, dry, and [place]. HEAD: Normocephalic. EYES: without scleral icterus or trauma. ENT/OROPHARYNX: clear and moist. LYMPHADENOPATHY/NECK: Is supple without lymphadenopathy or meningismus. RESPIRATORY: Lungs clear and equal. CARDIOVASCULAR: Regular rate and rhythm. GI/ABDOMEN: Soft and nontender. No organomegaly or pulsatile mass. No rebound or guarding. Normal bowel sounds. EXTREMITIES: Warm and well perfused. Full range of motion of the left arm and shoulder without discomfort. BACK: No CVA tenderness. Tenderness to palpation of the left rhomboids. No rashes or redness. NEUROLOGICAL: Intact without focal deficits. PSYCHIATRIC: normal affect. MUSCULOSKELETAL: Normally developed with good muscle tone. Course Course 1651: The patient was evaluated in room C5, and a complete history and physical examination were performed. 1849: I reviewed the patient's case with Dr. Moore - [facility] Moore will evaluate the patient for further management. 3: Upon reevaluation, the patient is resting. I updated her on her results a nd findings. She verbalized agreement to the treatment plan. Consultations Consultation #1: I reviewed the patient's case with Dr. Moore - Hospitalist, [facility]. Dr. Moore will evaluate the patient for further management. Time: 18:50 Administered Medications Discontinued Medications Morphine Sulfate (Morphine Sulfate) 4 mg IV NOW STA Stop: 01/25/19 17:00 Last Admin: 01/25/19 17:42 Dose: 4 mg Documented by: [id number] Medical Decision Making Differential Diagnosis Differential diagnosis includes: cardiac ischemia, aortic dissection, pulmonary embolism, pneumonia, pneumothorax, musculoskeletal, infections, pericarditis, my ocarditis, esophageal rupture, gastrointestinal, as well as others were entertained. Medical Records Attestation: I reviewed the patient's medical records. Home Medications Current Medication List: was personally reviewed by fl Laboratory Data Attestation: I reviewed the patient's lab results. Result diagrams: 01/25/19 17:35 01/25/19 17:35 Lab Results 01/25/19 01/25/19 Range/Units 17:35 17:35 WBC 11.53 H (4.8-10.8) K/uL RBC 3.70 L (4.2-5.4) M/uL Hgb 12.1 (12.0-16.0) g/dL Hct 37.6 (37-47) % MCV 101.6 H (80-100) fL MCH 32.7 (25-34) pg MCHC 32.2 (32-36) g/dL RDW Std Deviation 56.3 H (36.4-46.3) fL RDW Coeff of Kali 15.2 H (11.5-14.5) % Plt Count 118 L (130-400) K/uL MPV 10.4 (7.4-10.4) fL Immature Gran % (Auto) 0.2 % Neut % (Auto) 90.0 % Lymph % (Auto) 4.6 % [place] % (Auto) 5.1 % Eos % (Auto) 0.0 % Baso % (Auto) 0.1 % Immature Gran # (Auto) 0.02 (0.00-0.02) K/uL Neut # (Auto) 10.38 H (1.4-6.5) K/uL Lymph # (Auto) 0.53 L (1.2-3.4) K/uL [place] # (Auto) 0.59 (0.11-0.59) K/uL Eos # (Auto) 0.00 (0-0.5) K/uL Baso # (Auto) 0.01 (0-0.2) K/uL Sodium 133 L (136-145) mmol/L Potassium 4.6 (3.5-5.1) mmol/L Chloride 94 L (98-107) mmol/L Carbon Dioxide 29 (21-32) mmol/L Anion Gap 10.0 (3-11) BUN 39 H (7-18) mg/dl Creatinine 8.56 H* (0.6-1.2) mg/dl Est Cr Clr Drug Dosing 6.4 ml/min Est GFR ( Amer) 4.7 Est GFR (Non-Af Amer) 4.0 BUN/Creatinine Ratio 4.6 L (10-20) Glucose 157 H (70-99) mg/dl Calcium 9.2 (8.5-10.1) mg/dl Total Bilirubin 0.9 (0.2-1) mg/dl AST 35 (15-37) U/L ALT 22 (12-78) U/L Alkaline Phosphatase 101 (45-117) U/L Troponin I 4.470 H* (0-0.045) ng/ml Total Protein 7.4 (6.4-8.2) gm/dl Albumin 2.9 L (3.4-5.0) gm/dl Globulin 4.5 H (2.5-4.0) gm/dl Albumin/Globulin Ratio 0.6 L (0.9-2) Lipase 121 (73-393) U/L Imaging Data Radiologist's Impression: Radiology results as stated below per my review and the radiologist's interpretation: XR chest 1V portable HISTORY: Left-sided Chest Pain COMPARISON: Chest 10/12/2018. FINDINGS: The heart is mildly enlarged. There are poststernotomy changes. There is progressive interstitial vascular thickening consistent with developing pulmonary edema. No new focal lung consolidations to suggest pneumonia. No pleural effusions. No pneumothorax. Right jugular catheter terminates at the distal SVC. IMPRESSION: Cardiomegaly with developing pulmonary edema. Electronically signed by: Norbert Lanza M.D. 01/25/2019 5:18 PM ECG Data Attestation: I personally reviewed and interpreted this ECG as follows: Indication: + back/shoulder pain Rate (beats per minute): 108 Rhythm: + sinus rhythm ECG ST segments: no ST elevation ECG Findings: no PACs and no PVCs Blood Pressure Blood Pressure Findings: Low blood pressure Blood Pressure Disposition: further management by hospitalist Additional Comments: REPEAT EKG FINDINGS: sinus rhythm, 95 BPM, 1st degree AV block, no ST elevation, no PVC, no PAC. MDM Narrative This is a 78-year-old female who presents to the ED with a chief complaint of left posterior shoulder pain. The patient states that she has had these symptoms previously. She has been diagnosed with musculoskeletal pain and is currently taking Ultram for this. She states that normally the Ultram works but the patient states that they the Ultram did not work. Today around 11 AM, she developed the pain. She also had some dry heaves related to the pain. She reports a decreased appetite. She states that it hurts to touch the area but does not hurt to move her arm. She has a history of dialysis dependence. She does not produce any urine. The patient states that she has had an MS in the past which presents similar to her symptoms today. The patient is currently on Pradaxa for clotting of her dialysis graft sites. Her vital signs reveal a temperature of 37.8. Heart rate was 108 with a twelve-lead EKG showing sinus tachycardia at a rate of 108 without acute injury or ectopy. The patient's exam revealed some tenderness in the rhomboids muscle and left posterior shoulder region. She has no rashes or redness. Her lungs were clear but diminished. She denies any fevers or infectious type symptoms such as a cough. Chest x-ray reveals developing pulmonary edema. She does have dialysis scheduled for tomorrow morning. The patient's troponin was elevated 4.47. Kidney function tests are chronically elevated. CBC was unremarkable. The patient was told the results of the test. She was treated with IV morphine for her discomfort. Her discomfort resolved. She was given aspirin 324 mg by EMS p.o. She will be seen by the hospitalist for further evaluation and care. Impression & Plan Non-ST elevated myocardial infarction, Left shoulder pain Discharge Plan Visit Data Chief Complaint: Shoulder Pain Stated Complaint: L SHOULDER & BACK PAIN ED Provider: Angus Goodman Discharge Problem: Non-ST elevated myocardial infarction, Left shoulder pain Patient Disposition: Admitted As Inpatient Forms Stand Alone Forms: [facility] Prescriptions Prescriptions: No Action tramadol 50 mg tablet 50 mg PO Q6H RF: 0 aspirin [Adult Aspirin Regimen] 81 mg tablet,delayed release (DR/EC) 81 mg PO DAILY RF: 0 atorvastatin 40 mg tablet 40 mg PO HS RF: 0 famotidine 20 mg tablet 20 mg PO QAM RF: 0 lorazepam 1 mg tablet 1 mg PO QPM PRN (Reason: Anxiety) RF: 0 calcium acetate 667 mg capsule 1,334 mg PO TIDM RF: 0 cyclobenzaprine 5 mg tablet 5 mg PO BID PRN (Reason: MUSCLE SPASMS) RF: 0 calcium acetate 667 mg capsule 667 mg PO .WITH SNACKS RF: 0 ProRenal 8 mg iron-800 mcg-1,000 unit tablet 1 tab PO DAILY RF: 0 levothyroxine 150 mcg tablet 150 mcg PO MOTH RF: 0 levothyroxine 100 mcg tablet 100 mcg PO SUTUWEFRSA RF: 0 Referrals Referrals: Jac Katz DO [Primary Care Provider] - Discharge Problem: Left shoulder pain Qualifiers: Chronicity: acute Qualified Code(s): M25.512 - Pain in left shoulder The scribe's documentation has been prepared under my direction and personally reviewed by me in its entirety. I confirm that the note above accurately reflects all work, treatment, procedures, and medical decision making performed by me.
[2019-01-25 17:46] LABS: Basophils # (auto) 0.01 K/uL (0-0.2); Basophils % (auto) 0.1 %; Hematocrit (blood only) 37.6 % (37-47); Hemoglobin 12.1 g/dL (12.0-16.0); Immature Granulocytes # (auto) 0.02 K/uL (0.00-0.02); Immature Granulocytes % (auto) 0.2 %; Lymphocytes # (auto) 0.53 K/uL (1.2-3.4); Lymphocytes % (auto) 4.6 %; Mean Corpuscular Hemoglobin 32.7 pg (25-34); Mean Corpuscular Hgb Conc 32.2 g/dL (32-36); Mean Corpuscular Volume 101.6 fL (80-100); Mean Platelet Volume 10.4 fL (7.4-10.4); Monocytes # (auto) 0.59 K/uL (0.11-0.59); Monocytes % (auto) 5.1 %; Neutrophils # (auto) 10.38 K/uL (1.4-6.5); Platelet Count 118 K/uL (130-400); RDW Coefficient of Variation 15.2 % (11.5-14.5); RDW Standard Deviation 56.3 fL (36.4-46.3); White Blood Count 11.53 K/uL (4.8-10.8)
[2019-01-25 18:16] LABS: Albumin Globulin Ratio 0.6 (0.9-2); Albumin Level 2.9 gm/dl (3.4-5.0); BUN Creatinine Ratio 4.6 (10-20); Bilirubin,Total 0.9 mg/dl (0.2-1); Calcium 9.2 mg/dl (8.5-10.1); Creatinine Clr Calc Pharmacy 6.4 ml/min; Est GFR (African American) 4.7; Globulin 4.5 gm/dl (2.5-4.0); Potassium 4.6 mmol/L (3.5-5.1); Total Protein 7.4 gm/dl (6.4-8.2); Troponin I 4.47 ng/ml (0-0.045)
[2019-01-25] MEDS ORDERED: FAMOTIDINE 20 MG TAB PO PRN (21:40)
[2019-01-25] MEDS ORDERED: ZOLPIDEM TARTRATE 5 MG TAB PO PRN (21:40)
[2019-01-25] MEDS ORDERED: GLUCOSE 10 TABS/TUBE PO PRN (21:40)
[2019-01-25] MEDS ORDERED: GLUCOSE 40% GEL 15 GM TUBE PO PRN (21:40)
[2019-01-25] MEDS ORDERED: DEXTROSE 50% 50 ML SYRINGE IV PRN (21:40)
[2019-01-25] MEDS ORDERED: GLUCAGON FOR INJ 1 MG VIAL SQ PRN (21:40)
[2019-01-25] MEDS ORDERED: CARBOHYDRATES FOR HYPOGLYCEMIA PO PRN (21:40)
[2019-01-25] MEDS ORDERED: NITROGLYCERIN SL 0.4 MG/TAB TAB SL PRN (21:40)
[2019-01-25] MEDS ORDERED: Heparin IV Standard *NO* Bolus IV ONE (22:01)
--- NOTE | 2019-01-25 22:02 | History & Physical Report ---
Date of Service January 25, 2019 Assessment & Plan (1) Non-ST elevated myocardial infarction: Patient is adamant that the left shoulder pain she has similar to the left shoulder pain she had when she required a CABG in 2016 Troponin was 4 Currently she is left shoulder pain-free Order low-dose heparin drip Continue aspirin/Plavix Nitroglycerin as needed Consult certified pedorthotist Ordered trending troponin Check lipids panel and hemoglobin A1c to stratify his risk factors Continue Lipitor 40 mg p.o. daily (2) ESRD (end stage renal disease) on dialysis: Continue hemodialysis Consult title i director in a.m. (3) DM type 2 (diabetes mellitus, type 2): Diet-controlled, will check hemoglobin A1c (4) Hyperlipidemia: Continue Lipitor and will check lipids panel (5) Hypothyroid: Check TSH, Continue Synthroid History of Present Illness Chief Complaint: Left shoulder pain Primary Care Provider: Jac Katz DO 78 years old female with past medical history of dyslipidemia, coronary artery disease status post IA in 2016 that required CABG x3 at [facility], end-stage renal disease on hemodialysis, hypothyroidism, obesity and diet-controlled diabetes. Patient is vasculopathic with multiple failed AV fistulas/grafts due to coagulation, currently on aspirin/Plavix for the right lower extremity graft in the process of maturing and right subclavian dialysis catheter. Patient stated that in 2016 she had this left shoulder pain for about a month before they start working her up for CAD and cardiac pain, then she required going to [facility] for CABG. Patient stated that she started having this left shoulder pain again, yesterday she went [place] shopping with her daughter and she kept having this left shoulder pain until 3 AM. Today she went with a friend shopping again and when she came back home the pain came while she is at rest in the left shoulder was severe localized in the left shoulder area. Presented to the ED and she was found to have a troponin of 4. Received 4 mg of morphine and the pain in the left shoulder resolved. Symptoms associated with nausea and dry heaving and dry mucous membranes. She also felt cold and covered herself with multiple blankets. In the ED she was found to have nonspecific ST-T wave changes and incomplete left bundle branch block. Her chest pain currently resolved she will be admitted and her troponin will be trended. Allergies Allergy/AdvReac Type Severity Reaction Status Date / Time Penicillins Allergy Unknown SWELLING/HI Verified 12/09/19 19:50 VES oxycodone AdvReac Unknown nausea Verified 01/25/19 19:50 Home Medications Home Medications Medication Instructions Recorded Confirmed Type atorvastatin 40 mg PO HS 01/29/18 01/25/19 History calcium acetate 1,334 mg PO TIDM 01/29/18 01/25/19 History famotidine 20 mg PO QAM PRN 01/29/18 01/25/19 History lorazepam 1 mg PO QPM PRN 01/29/18 01/25/19 History aspirin 81 mg tablet,delayed 81 mg PO DAILY 03/03/18 01/25/19 History release tramadol 50 mg tablet 50 mg PO Q12 07/20/18 01/25/19 History ProRenal 1 tab PO DAILY 10/12/18 01/25/19 History calcium acetate 667 mg PO .WITH SNACKS 10/12/18 01/25/19 History cyclobenzaprine 5 mg PO BID PRN 10/12/18 01/25/19 History levothyroxine 100 mcg PO SUTUWEFRSA 10/12/18 01/25/19 History levothyroxine 150 mcg PO MOTH 10/12/18 01/25/19 History clopidogrel [Plavix] 75 mg PO DAILY 01/25/19 01/25/19 History ketoconazole 1 applic TOPICAL UD 01/25/19 01/25/19 History Past Med/Surg History Medical History Aortic stenosis Bladder cancer REASON FOR UPCOMING SURGERY Coronary artery disease [place] 2015 WITH EMERGENT CABG X 3 AT [facility]. RECENTLY TO [facility] ED WITH SHOULDER PAIN SIMILAR TO HER ANGINA. TROPONIN WAS ELEVATED, PT ADMITTED. NO EKGS CHANGES TO SUGGEST ACS. TROPONIN BUMP FELT 2/2 RENAL DISEASE. ECHO WHILE INPT 01/30 SHOWED EF 55-60%, MILD INF WALL HK. Diabetes DIET CONTROLLED ESRD (end stage renal disease) on dialysis DIALYSIS DAYS , & SAT - WEEK OF SURGERY SCHEDULED DAYS ARE FRI, AND SAT FAILED AV FISTULA LUE, ALSO FAILED AND NOW INFECTION L GROIN GRAFT; CURRENTLY USING R CHEST PERMACATH History of hypertension History of myocardial infarction 2016...CATH (NO STENTS) "99% BLOCKED" - TRIPLE BYPASS History of recent hospitalization 02/01/18 - PAIN IN SHOULDER/ED VISIT [facility]/HEART ATTACK RULED OUT- CAUSE POSSIBLE MUSCULAR PROBLEM WITH SHOULDER Morbid obesity with BMI of 40.0-44.9, adult Spinal stenosis Wound infection LEFT GROIN WOUND VAC PLACED 03/18/18. Had a graft placed in L thigh/groin ~6wks ago, subsequent infection and graft removed 02/23/18, now has wound vac. Surgical History Hemodialysis access, AV graft CLOGGED AND SINCE REMOVED /CURRENTLY: DIALYSIS CATH RIGHT CHEST History of back surgery X2/FUSIONS History of cardiac cath 2016...[place]..NO STENTS..TRIPLE BYPASS History of colonoscopy History of heart bypass surgery [place]..TRIPLE BYPASS 2016 History of hysterectomy Hx of cholecystectomy Family History Other Coronary heart disease Family history non-contributory Social History Preferred Language: Pashto Communication Ability: Effective Kindergarten Prep Teacher Required: No Beliefs That Will Affect Care: None marital status: Current Living Situation: Family Current Living Situation Comment: lives with daughter and son-in-law current occupational status: retired current occupation: worked previously at [employer] Feels Safe at Home: Yes Smoking Status: Never smoker Second Hand Exposure: No ; Hx Alcohol Use: No Hx Substance Use: No Review of Systems Review of Systems: Review of system Constitutional: No fever / no chills / no sweats / no weakness / no fatigue Eyes: no blurring of vision / no eye pain / no discharge / no redness ENT: no hearing loss / no epistaxis /no swallowing problems Respiratory: no cough / no wheezing / no SOB / no hemoptysis Cardiovascular: Positive for chest pain / no lower extremity edema / no palpitation Abdomen: no pain /positive for dry heaves and nausea / no vomiting / no constipation Musculoskeletal: no joint pain / no muscle pain / no joint swelling Genitourinary: no dysuria / no incontinence / no urinary retention Neurologic: no focal weakness / no numbness/tingling / no ataxia Psychiatric: no depression symptoms / no anxiety / no insomnia Endocrine: no excessive thirst / no excessive urination Hematologic: no abnormal bleeding / no bruising / no LN swelling Skin: No rash / no pallor Physical Exam Physical Exam: Physical examination General patient appears to be comfortable, not in acute distress HEENT: Atraumatic , normocephalic /no jaundice /no pallor /anicteric /no dry mucous membrane /normal external ear inspection Neck: Supple /no swelling /central trach Heart: S1/S2 normal/regular rate and rhythm/no gallop /no rub /no murmur Lungs: Clear to auscultation bilaterally/normal chest with expansion/no rhonchi/no rales/no wheezing/no use of accessory muscles of respiration Abdomen: Soft/nontender/no guarding/no rebound/no organomegaly/no pulsatile mass Musculoskeletal: No swelling/no edema/no tenderness/normal range of motion Neuro exam: Awake alert oriented 3/cranial nerves II through XII appear to be intact/sensation intact/moves all extremities/no abnormal movements Psychiatric evaluation: No depressed mood/normal affect Skin: No rash on exposed skin area/no erythema Extremity: Normal pulse/no pitting edema/no clubbing or cyanosis Endocrine/lymphatic: No obvious lymphadenopathy /no lymphedema Results & Data Vital Signs (Past 12 Hours) Vital Signs Temp Pulse Resp BP Pulse Ox 01/25/19 21:30 93 H 16 93/37 L 92 01/25/19 21:00 91 H 22 80/42 L 90 01/25/19 20:00 91 H 17 94/37 L 95 01/25/19 19:30 92 H 21 97 01/25/19 19:00 94 H 17 94/42 L 96 01/25/19 18:30 91 H 16 93/31 L 96 01/25/19 18:00 93 H 16 87/46 L 90 01/25/19 17:33 92 01/25/19 17:32 95 H 20 83/46 L 92 01/25/19 17:01 103 H 25 H 98/50 L 93 01/25/19 16:47 37.8 C H 109 H 25 H 122/43 L 93 Code Status & VTE Plan Code Status Full code VTE Prophylaxis Plan VTE Prophylaxis will be ordered: Yes PG Care Time/CCT Total # of Minutes Spent Total Time Spent with Patient: 35 minutes total time spent is greater than 50% in coordination of care (as documented) at patient's floor/unit and/or counseling patient/family discussion of care with nursing staff
[2019-01-25] MEDS ORDERED: HEPARIN 25000 UNIT/500 ML D5W IV ONE (22:48)
[2019-01-25 22:50] LABS: Vitamin B12 811 pg/ml (211-911)
[2019-01-25 22:51] LABS: Folate (Folic Acid) > 24.00 ng/ml (>5.38)
[2019-01-25 23:32] LABS: INR 1.1 (0.9-1.1); Partial Thromboplastin Time 28.4 Seconds (21.0-31.0); Prothrombin Time 11.6 Seconds (9.0-12.0)
[2019-01-25] MEDS: HEPARIN SODIUM/DEXTROSE 25,000 UNITS/500 ML BAG IV SCH (23:38)
[2019-01-25] MEDS: LORazepam 1 MG TAB PO PRN (23:44)
[2019-01-26 04:40] LABS: Albumin Globulin Ratio 0.6 (0.9-2); Albumin Level 2.9 gm/dl (3.4-5.0); BUN Creatinine Ratio 4.7 (10-20); Est GFR (African American) 4.2; Est GFR (Non-African American) 3.6; Globulin 4.7 gm/dl (2.5-4.0); Potassium 5.2 mmol/L (3.5-5.1); Total Protein 7.6 gm/dl (6.4-8.2); Troponin I 7.27 ng/ml (0-0.045)
[2019-01-26 05:45] LABS: Hematocrit (blood only) 38.5 % (37-47); Hemoglobin 12.4 g/dL (12.0-16.0); Mean Corpuscular Hemoglobin 33.2 pg (25-34); Mean Corpuscular Hgb Conc 32.2 g/dL (32-36); Mean Corpuscular Volume 103.2 fL (80-100); Mean Platelet Volume 10.4 fL (7.4-10.4); Platelet Count 129 K/uL (130-400); RDW Coefficient of Variation 15.3 % (11.5-14.5); RDW Standard Deviation 57.5 fL (36.4-46.3); Red Blood Count 3.73 M/uL (4.2-5.4); White Blood Count 12.29 K/uL (4.8-10.8)
[2019-01-26] MEDS: LEVOTHYROXINE SODIUM 100 MCG TABLET PO SCH (06:11)
[2019-01-26 06:18] LABS: Partial Thromboplastin Ratio 2.2
[2019-01-26 06:22] LABS: Partial Thromboplastin Time 58.3 Seconds (21.0-31.0)
[2019-01-26 06:32] LABS: Estimated Average Glucose 80 mg/dl; Hemoglobin A1C 4.4 % (4.5-5.6)
[2019-01-26] MEDS ORDERED: CALCIUM ACETATE 667 MG CAP PO PRN (08:00)
[2019-01-26] MEDS ORDERED: HEPARIN SOD 5,000 UNIT/0.5 ML VIAL SQ SCH (09:00)
[2019-01-26] MEDS: CALCIUM ACETATE 667 MG CAP PO SCH ×3 (09:43→20:13)
[2019-01-26] MEDS: CLOPIDOGREL BISULFATE 75 MG TAB PO SCH (09:43)
[2019-01-26] MEDS: KETOCONAZOLE 2% CR 15 GM TUBE EXT SCH (09:44)
[2019-01-26] MEDS: ASPIRIN 81 MG ECTAB PO SCH (09:44)
[2019-01-26] MEDS: CEROVITE ADV FORMULA TAB PO SCH (09:44)
[2019-01-26] MEDS: TRAMADOL HCL 50 MG TABLET PO SCH ×2 (09:47→20:21)
--- NOTE | 2019-01-26 10:02 | Cardiology Consultation ---
Date of Consultation January 26, 2019 Assessment & Plan (1) Left shoulder pain: (2) Elevated troponin I level: (3) Fever: (4) CAD (coronary artery disease): (5) DM type 2 (diabetes mellitus, type 2): Complex 78 female admitted with left shoulder discomfort. Pain reproducible with palpation suggesting musculoskeletal etiology. No chest discomfort or shortness of breath. Troponins have trended upward without significant ECG changes. ECGs unchanged with interventricular conduction delay. Resting 2D transthoracic echocardiogram is pending. Patient chronically treated with dual antiplatelet therapy. Not treated with beta-lorrie or ANIYAH inhibitor in the outpatient setting due to borderline resting hypotension. She has undiagnosed febrile illness currently. I have ordered blood cultures x2. Early sepsis suspected. Conservative management recommended at this time due to poor vascular access per physical exam with multiple failed AV fistulas and diminished to absent peripheral pulses. I suspect troponin troponin elevation is secondary to demand ischemia in the setting of early sepsis, borderline tachycardia, hypotension, and end-stage renal disease. She will require hemodialysis today. I will continue to follow patient closely during hospitalization. History of Present Illness Reason for Consultation: Elevated troponin, CAD Requesting Physician: Dr. Jones Attending Physician: Mateo Jones DO History of Present Illness 78-year-old female presented to the emergency department with left shoulder pain. Patient carries a history of longstanding left shoulder discomfort for many years. Noted to have elevated troponin and a heparin infusion was ordered. History of coronary artery disease status post coronary artery bypass grafting December 2015 in the setting of acute myocardial infarction. She reports left shoulder discomfort at that time. Patient was [place] shopping yesterday when she noted left shoulder discomfort of worsening severity. Discomfort tends to wax and wane on a weekly basis. Denies chest pain or shortness of breath. Febrile on admission. Reports chills at home. Denies cough, sputum production, or dysuria. 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 Currently utilizing a functioning right lower extremity fistula. Pain well controlled at this time. Offers no other complaints. Allergies Allergy/AdvReac Type Severity Reaction Status Date / Time Penicillins Allergy Unknown SWELLING/HI Verified 01/25/19 19:50 VES oxycodone AdvReac Unknown nausea Verified 01/25/19 19:50 Home Medications Home Medications Medication Instructions Recorded Confirmed Type atorvastatin 40 mg PO HS 01/29/18 01/25/19 History calcium acetate 1,334 mg PO TIDM 01/29/18 01/25/19 History famotidine 20 mg PO QAM PRN 01/29/18 01/25/19 History lorazepam 1 mg PO QPM PRN 01/29/18 01/25/19 History aspirin 81 mg tablet,delayed 81 mg PO DAILY 03/03/18 01/25/19 History release tramadol 50 mg tablet 50 mg PO Q12 07/20/18 01/25/19 History ProRenal 1 tab PO DAILY 10/12/18 01/25/19 History calcium acetate 667 mg PO .WITH SNACKS 10/12/18 01/25/19 History cyclobenzaprine 5 mg PO BID PRN 10/12/18 01/25/19 History levothyroxine 100 mcg PO SUTUWEFRSA 10/12/18 01/25/19 History levothyroxine 150 mcg PO MOTH 10/12/18 01/25/19 History clopidogrel [Plavix] 75 mg PO DAILY 01/25/19 01/25/19 History ketoconazole 1 applic TOPICAL UD 01/25/19 01/25/19 History Patient History Medical History Aortic stenosis Bladder cancer REASON FOR UPCOMING SURGERY Coronary artery disease MA 2015 WITH EMERGENT CABG X 3 AT [facility] [place]. RECENTLY TO [facility] ED WITH SHOULDER PAIN SIMILAR TO HER ANGINA. TROPONIN WAS ELEVATED, PT ADMITTED. NO EKGS CHANGES TO SUGGEST ACS. TROPONIN BUMP FELT 2/2 RENAL DISEASE. ECHO WHILE INPT 01/30 SHOWED EF 55-60%, MILD INF WALL HK. Diabetes DIET CONTROLLED ESRD (end stage renal disease) on dialysis DIALYSIS DAYS , & FRI - WEEK OF SURGERY SCHEDULED DAYS ARE FRI, AND SAT FAILED AV FISTULA LUE, ALSO FAILED AND NOW INFECTION L GROIN GRAFT; CURRENTLY USING R CHEST PERMACATH History of hypertension History of myocardial infarction 2016...CATH (NO STENTS) "99% BLOCKED" - TRIPLE BYPASS History of recent hospitalization 02/01/18 - PAIN IN SHOULDER/ED VISIT [facility]/HEART ATTACK RULED OUT- CAUSE POSSIBLE MUSCULAR PROBLEM WITH SHOULDER Morbid obesity with BMI of 40.0-44.9, adult Spinal stenosis Wound infection LEFT GROIN WOUND VAC PLACED 03/18/18. Had a graft placed in L thigh/groin ~6wks ago, subsequent infection and graft removed 02/23/18, now has wound vac. Surgical History Hemodialysis access, AV graft CLOGGED AND SINCE REMOVED /CURRENTLY: DIALYSIS CATH RIGHT CHEST History of back surgery X2/FUSIONS History of cardiac cath 2016...[place]..NO STENTS..TRIPLE BYPASS History of colonoscopy History of heart bypass surgery [place]..TRIPLE BYPASS 2016 History of hysterectomy Hx of cholecystectomy Family History Other Coronary heart disease Family history non-contributory Social History Preferred Language: Maori Communication Ability: Effective Sample Preparation Supervisor Required: No Beliefs That Will Affect Care: Confucianism Confucianism Beliefs: Sikh marital status: Current Living Situation: Family Current Living Situation Comment: lives with daughter and son-in-law current occupational status: retired current occupation: worked previously at [employer] Feels Safe at Home: Yes Smoking Status: Never smoker Second Hand Exposure: No ; Hx Alcohol Use: No Hx Substance Use: No Review of Systems Review of Systems: All systems reviewed & are unremarkable except as noted in HPI & below Physical Exam Constitutional: well developed, well nourished and + obese; no acute distress Eyes: PERRL, conjunctivae normal, anicteric sclerae Respiratory: normal respiratory effort, lungs clear to auscultation Cardiovascular: Rate/Rhythm: regular rate and regular rhythm Heart Sounds: normal S1 and normal S2; no murmur Vessels: + femoral pulses abnormal (Palpable right lower extremity thrill. Femoral pulse is not palpable.) and + radial pulses abnormal Gastrointestinal (Abdomen): Inspection/Auscultation: abdomen normal to inspection, + abdomen distended and normal bowel sounds Percussion/Palpation: abdomen nontender, no guarding and abdomen not rigid Neurologic: PERRL, EOMI, accommodation nl, no face palsy, no dysarthria Results & Data Vital Signs (Past 12 Hours) Vital Signs Temp Pulse Pulse Resp BP BP BP 01/26/19 07:14 37.7 C H 92 H 19 99/65 L 01/26/19 04:21 01/26/19 04:17 38 C H 98 H 17 91/58 L 01/25/19 23:15 36.9 C 88 18 103/50 L 01/25/19 22:30 93 H 12 109/59 L Pulse Ox 01/26/19 07:14 96 01/26/19 04:21 91 01/26/19 04:17 83 L 01/25/19 23:15 91 01/25/19 22:30 92 (1) CAD (coronary artery disease) Associated angina: angina presence unspecified Coronary Disease-Associated Artery/Lesion type: unspecified vessel or lesion type [place] vs. transplanted heart: [place] heart Qualified Code(s): I25.10 - Atherosclerotic heart disease of [place] coronary artery without angina pectoris (2) Left shoulder pain Chronicity: acute Qualified Code(s): M25.512 - Pain in left shoulder
--- NOTE | 2019-01-26 11:38 | Nephrology Consultation ---
Date of Consultation January 26, 2019 Assessment & Plan (1) ESRD (end stage renal disease) on dialysis: -- HD indicated today due to mild hyperkalemia. Case reviewed w/ Cardiology. They feel that HD can be safely performed today -- HD today. Orders placed in EMR and HD RN notified (2) Elevated troponin I level: -- Evaluation as per Cardiology (3) Fever: -- Await blood and urine cultures. If positive blood culture will need to consider AVG US, removal of IJ THC and TTE (4) DM type 2 (diabetes mellitus, type 2): History of Present Illness Reason for Consultation: ESRD on IHD Attending Physician: Mateo Jones, DO History of Present Illness Ms. Monae is a 78 year old white female who is seen at the request of Dr. Jones to provide inpatient HD. Medical records in the EMR were reviewed and are summarized as follows: Ms. Monae has ESRD due to diabetic nephropathy, hypertensive nephrosclerosis and vascular disease. She has been on IHD since 01/02: ([facility] TTS 4hr 2K 2Ca F-180NR Qb 400/Qd A1.5 EDW 101.5kg). In 2017 her LUE brachiocephalic AVF developed arterial steal and was ligated. She underwent L thigh AVG by Dr. Marin 02/03. This became infected and was removed one month later. In 07/05 a R thigh AVG was placed. Patient had prolonged healing of the surgical incision. 01/05 R thigh AVG was used as vascular access. Patient still has a R IJ THC in place. Yesterday Ms. Monae developed L chest discomfort when ambulating. She presented to the ED where she was found to have a low grade fever and positive troponin. Ms. Monae was admitted for ongoing cardiac monitoring and evaluation for potential infections PMH: ESRD, ASCVD s/p CABG x 3 ([facility] 01/02), hypercholesterolemia, HTN, anemia, gout, AODM, hypothyroidism, spinal stenosis. Allergies Allergy/AdvReac Type Severity Reaction Status Date / Time Penicillins Allergy Unknown SWELLING/HI Verified 01/25/19 19:50 VES oxycodone AdvReac Unknown nausea Verified 01/25/19 19:50 Home Medications Home Medications Medication Instructions Recorded Confirmed Type atorvastatin 40 mg PO HS 01/29/18 01/25/19 History calcium acetate 1,334 mg PO TIDM 01/29/18 01/25/19 History famotidine 20 mg PO QAM PRN 01/29/18 01/25/19 History lorazepam 1 mg PO QPM PRN 01/29/18 01/25/19 History aspirin 81 mg tablet,delayed 81 mg PO DAILY 03/03/18 01/25/19 History release tramadol 50 mg tablet 50 mg PO Q12 07/20/18 01/25/19 History ProRenal 1 tab PO DAILY 10/12/18 01/25/19 History calcium acetate 667 mg PO .WITH SNACKS 10/12/18 01/25/19 History cyclobenzaprine 5 mg PO BID PRN 10/12/18 01/25/19 History levothyroxine 100 mcg PO SUTUWEFRSA 10/12/18 01/25/19 History levothyroxine 150 mcg PO MOTH 10/12/18 01/25/19 History clopidogrel [Plavix] 75 mg PO DAILY 01/25/19 01/25/19 History ketoconazole 1 applic TOPICAL UD 01/25/19 01/25/19 History Patient History Medical History Aortic stenosis Bladder cancer REASON FOR UPCOMING SURGERY Coronary artery disease [place] 2015 WITH EMERGENT CABG X 3 AT [facility] [place]. RECENTLY TO [facility] ED WITH SHOULDER PAIN SIMILAR TO HER ANGINA. TROPONIN WAS ELEVATED, PT ADMITTED. NO EKGS CHANGES TO SUGGEST ACS. TROPONIN BUMP FELT 2/2 RENAL DISEASE. ECHO WHILE INPT 01/30 SHOWED EF 55-60%, MILD INF WALL HK. Diabetes DIET CONTROLLED ESRD (end stage renal disease) on dialysis DIALYSIS DAYS , & FRI - WEEK OF SURGERY SCHEDULED DAYS ARE FRI, AND SAT FAILED AV FISTULA LUE, ALSO FAILED AND NOW INFECTION L GROIN GRAFT; CURRENTLY USING R CHEST PERMACATH History of hypertension History of myocardial infarction 2016...CATH (NO STENTS) "99% BLOCKED" - TRIPLE BYPASS History of recent hospitalization 02/01/18 - PAIN IN SHOULDER/ED VISIT [facility]/HEART ATTACK RULED OUT- CAUSE POSSIBLE MUSCULAR PROBLEM WITH SHOULDER Morbid obesity with BMI of 40.0-44.9, adult Spinal stenosis Wound infection LEFT GROIN WOUND VAC PLACED 03/18/18. Had a graft placed in L thigh/groin ~6wks ago, subsequent infection and graft removed 02/23/18, now has wound vac. Surgical History Hemodialysis access, AV graft CLOGGED AND SINCE REMOVED /CURRENTLY: DIALYSIS CATH RIGHT CHEST History of back surgery X2/FUSIONS History of cardiac cath 2016...[place]..NO STENTS..TRIPLE BYPASS History of colonoscopy History of heart bypass surgery [place]..TRIPLE BYPASS 2016 History of hysterectomy Hx of cholecystectomy Family History Other Coronary heart disease Family history non-contributory Social History Preferred Language: Ghanaian Communication Ability: Effective Bilingual Call Center Representative Required: No Beliefs That Will Affect Care: Yarsanism Yarsanism Beliefs: Yazdanism marital status: Current Living Situation: Family Current Living Situation Comment: lives with daughter and son-in-law current occupational status: retired current occupation: worked previously at [email or web address] Feels Safe at Home: Yes Smoking Status: Never smoker Second Hand Exposure: No ; Hx Alcohol Use: No Hx Substance Use: No Review of Systems Constitutional: + fever and + weakness Eyes: no worsening vision and no problem reported Ear, Nose, Mouth, Throat: no problem reported Respiratory: no cough and no dyspnea Cardiovascular: + chest pain (L shoulder discomfort w/ activity); no palpitations and no edema Gastrointestinal: no abdominal pain, no nausea, no vomiting and no diarrhea/loose stools Genitourinary: no dysuria and no hematuria Musculoskeletal: no back pain Integumentary: no rash Neurologic: no falls, no dizziness and no confusion Physical Exam Constitutional: + overweight Eyes: PERRL, conjunctivae normal, anicteric sclerae ENMT: external ear and nose normal, oropharynx normal Neck: trachea midline, no thyromegaly Respiratory: normal respiratory effort, lungs clear to auscultation Cardiovascular: RRR, no murmur, no edema R thigh AVG + bruit. No erythema or fluctuance Gastrointestinal (Abdomen): normal bowel sounds, soft, nontender, no hepatosplenomegaly Musculoskeletal: Extremities: no cyanosis Skin: no rashes, warm and dry Neurologic: awake; not confused Results & Data Vital Signs (Past 12 Hours) Vital Signs Temp Pulse Resp BP Pulse Ox 01/26/19 07:14 37.7 C H 92 H 19 99/65 L 96 01/26/19 04:21 91 01/26/19 04:17 38 C H 98 H 17 91/58 L 83 L Laboratory Results Laboratory Tests 10/14/18 10/14/18 07:24 07:24 WBC 7.15 Hgb 13.0 Hct 40.1 Plt Count 113 L Sodium 135 L Potassium 4.7 Chloride 99 Carbon Dioxide 27 BUN 29 H Creatinine 6.38 H* D Glucose 77 Diagnostic Findings Laboratory Tests 01/25/19 01/26/19 01/26/19 22:06 03:42 09:49 Troponin I 6.460 H* 7.270 H* 9.110 H* PG Care Time/CCT Total # of Minutes Spent Total Time Spent with Patient: Total time spent is greater than 50% in coordination of care (as documented) at patient's floor/unit and/or counseling patient:
[2019-01-26] MEDS ORDERED: SODIUM CHLORIDE 0.9% 1000ML 1,000 ML IV PRN (11:44)
[2019-01-26] MEDS ORDERED: HEPARIN SOD (PORCINE) 1000 UNIT/ML 10 ML VIAL IV SCH (12:00)
[2019-01-26] MEDS: MoRPHine SULFATE 2 MG/ML CARP IV PRN (12:59)
--- NOTE | 2019-01-26 13:45 | Medical Student Progress Note ---
Date of Service January 26, 2019 Assessment & Plan (1) ESRD (end stage renal disease) on dialysis: Agustina is hyponatremic, hypochloremic and hyperkalemic. She is going for a dialysis treatment today. (2) Elevated troponin I level: An Echo was performed which showed an EF of 45-50%, concentric LVH, global LV hypokinesis, mild-moderate mitral regurg, and mild tricuspid regurg. Pt is on dual anti-platlet therapy. She is not on an ANIYAH or beta-lorrie due to baseline hypotension. Cardiology was consulted to advise futher management. (3) Fever: Blood and urine cultures were ordered. If positive, an AV graft ultrasound AND REMOVAL OF IJ THC will be considered. (4) DM type 2 (diabetes mellitus, type 2): Continue home medications. Subjective Agustina appears nontoxic and in no acute distress. She states that she no longer has shoulder pain and feels at her baseline. She is concerned about being able to receive her normal dialysis treatments which typically happen on Tuesdays. Review of Systems Review of Systems: Constitutional: No fever / no chills / no sweats / no weakness / no fatigue Eyes: no blurring of vision / no eye pain / no discharge / no redness ENT: no hearing loss / no epistaxis /no swallowing problems Respiratory: no cough / no wheezing / no SOB / no hemoptysis Cardiovascular: Positive for chest pain / no lower extremity edema / no palpitation Abdomen: no pain /positive for dry heaves and nausea / no vomiting / no con stipation Musculoskeletal: no joint pain / no muscle pain / no joint swelling Genitourinary: no dysuria / no incontinence / no urinary retention Neurologic: no focal weakness / no numbness/tingling / no ataxia Psychiatric: no depression symptoms / no anxiety / no insomnia Endocrine: no excessive thirst / no excessive urination Hematologic: no abnormal bleeding / no bruising / no LN swelling Skin: No rash / no pallor Physical Exam Constitutional: + overweight; no acute distress Eyes: PERRL, conjunctivae normal, anicteric sclerae ENMT: external ear and nose normal, oropharynx normal Neck: trachea midline, no thyromegaly Respiratory: normal respiratory effort, lungs clear to auscultation Cardiovascular: RRR, no murmur, no edema Rate/Rhythm: regular rate and regular rhythm Heart Sounds: normal S1 and normal S2; no murmur Vessels: + femoral pulses abnormal (Palpable right lower extremity thrill. Femoral pulse is not palpable.) Gastrointestinal (Abdomen): normal bowel sounds, soft, nontender, no hepatosplenomegaly Inspection/Auscultation: abdomen normal to inspection, + abdomen distended and normal bowel sounds Percussion/Palpation: abdomen nontender, no guarding and abdomen not rigid Musculoskeletal: Extremities: no cyanosis Skin: no rashes, warm and dry Neurologic: PERRL, EOMI, accommodation nl, no face palsy, no dysarthria awake; not confused Results & Data Vital Signs (Past 12 Hours) Vital Signs Temp Pulse Resp BP Pulse Ox 01/26/19 12:06 37.4 C 99 H 18 100/65 92 01/26/19 07:14 37.7 C H 92 H 19 99/65 L 96 01/26/19 04:21 91 01/26/19 04:17 38 C H 98 H 17 91/58 L 83 L Troponin 01/25 17:53- 5.47 Troponin 01/25 22:06- 6.46 Troponin 01/26 3:42 - 7.27
--- NOTE | 2019-01-26 14:27 | Hospitalist Progress Note ---
Date of Service January 26, 2019 Assessment & Plan (1) Fever: concerning for underlying infection CXR without infiltrate, she does not make urine but will order UA/culture 2 blood cultures drawn on 01/26 to rule out bacteremia she has mild leukocytosis, low grade fever h/o line infections and graft infections right tunneled HD cath with no signs of surrounding cellulitis some dry skin debris but no clear signs of purulence hold on antibiotics until blood cultures back (2) Non-ST elevated myocardial infarction: no longer has the left shoulder pain, never had chest pain/pressure troponin peaked at 7 echo without any new changes continue low-dose heparin drip for 48 hours Continue aspirin/Plavix Dr. Allan following Continue Lipitor 40 mg p.o. daily (3) ESRD (end stage renal disease) on dialysis: tolerated HD well today (4) DM type 2 (diabetes mellitus, type 2): Diet-controlled, monitor for hypoglycemia (5) Hyperlipidemia: Continue Lipitor (6) Hypothyroid: Check TSH, Continue Synthroid Subjective patient feeling better, no longer has left shoulder pain does have some pain in paraspinal muscles left side in upper thoracic region no true chest pain or pressure, no dyspnea she tolerated hemodialysis quite well having some low grade fevers, no signs of sepsis she had a normal CXR, does not make urine, no abdominal pain says that her dialysis catheter has had some "gunk" around it and she was applying an ointment 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 CT he reviewed her echo, showed prior areas of hypokinesis/akinesis with low EF but nothing new, certainly no areas concerning for ischemia, he recommended looking into infection blood cultures ordered Review of Systems Review of Systems: All systems reviewed & are unremarkable except as noted in HPI & below Constitutional: + fever, + chills, + fatigue and + weakness; no sweats Respiratory: no cough and no dyspnea Cardiovascular: no chest pain Gastrointestinal: no abdominal pain, no nausea, no vomiting, no constipation and no diarrhea/loose stools Musculoskeletal: + back pain (upper thoracic, left paraspinal muscles) and + joint pain (left shoulder) Physical Exam Constitutional: WD/WN, vitals as above + overweight Eyes: PERRL, conjunctivae normal, anicteric sclerae ENMT: external ear and nose normal, oropharynx normal Neck: trachea midline, no thyromegaly Respiratory: normal respiratory effort, lungs clear to auscultation Cardiovascular: RRR, no murmur, no edema Gastrointestinal (Abdomen): normal bowel sounds, soft, nontender, no hepatosplenomegaly Musculoskeletal: Head/Neck/Chest: normocephalic and head atraumatic Spine: + thoracic spinal tenderness (left paraspinal muscles) and + paraspinal tenderness (left upper thoracic) Extremities: extremities normal to inspection Skin: no rashes, warm and dry (right tunneled HD catheter, skin without erythema, some debris on line) Neurologic: patellar DTR's 2+ bilat, sensation intact and PERRL, EOMI, accommodation nl, no face palsy, no dysarthria Psychiatric: A+Ox3, euthymic affect Lymphatic: no cervical or axillary lymphadenopathy Results & Data Vital Signs (Past 12 Hours) Vital Signs Temp Pulse Resp BP Pulse Ox 01/26/19 12:06 37.4 C 99 H 18 100/65 92 01/26/19 07:14 37.7 C H 92 H 19 99/65 L 96 01/26/19 04:21 91 01/26/19 04:17 38 C H 98 H 17 91/58 L 83 L Laboratory Results Laboratory Results - last 24 hr 01/25/19 01/25/19 01/25/19 17:35 17:35 17:35 WBC 11.53 H RBC 3.70 L Hgb 12.1 Hct 37.6 MCV 101.6 H MCH 32.7 MCHC 32.2 RDW Std Deviation 56.3 H RDW Coeff of Kali 15.2 H Plt Count 118 L MPV 10.4 Immature Gran % (Auto) 0.2 Neut % (Auto) 90.0 Lymph % (Auto) 4.6 [place] % (Auto) 5.1 Eos % (Auto) 0.0 Baso % (Auto) 0.1 Immature Gran # (Auto) 0.02 Neut # (Auto) 10.38 H Lymph # (Auto) 0.53 L [place] # (Auto) 0.59 Eos # (Auto) 0.00 Baso # (Auto) 0.01 PT INR APTT PTT Ratio Sodium 133 L Potassium 4.6 Chloride 94 L Carbon Dioxide 29 Anion Gap 10.0 BUN 39 H Creatinine 8.56 H* Est Cr Clr Drug Dosing 6.4 Est GFR ( Amer) 4.7 Est GFR (Non-Af Amer) 4.0 BUN/Creatinine Ratio 4.6 L Glucose 157 H Estimat Average Glucose 80 Hemoglobin A1c 4.4 L Calcium 9.2 Total Bilirubin 0.9 AST 35 ALT 22 Alkaline Phosphatase 101 Troponin I 4.470 H* Total Protein 7.4 Albumin 2.9 L Globulin 4.5 H Albumin/Globulin Ratio 0.6 L Triglycerides Cholesterol LDL Cholesterol, Calc VLDL Cholesterol, Calc HDL Cholesterol Cholesterol/HDL Ratio Lipase 121 Vitamin B12 Folate TSH Random Cortisol Nasal Screen MRSA (PCR) 01/25/19 01/25/19 01/25/19 17:35 17:36 17:36 WBC RBC Hgb Hct MCV MCH MCHC RDW Std Deviation RDW Coeff of Kali Plt Count MPV Immature Gran % (Auto) Neut % (Auto) Lymph % (Auto) [place] % (Auto) Eos % (Auto) Baso % (Auto) Immature Gran # (Auto) Neut # (Auto) Lymph # (Auto) [place] # (Auto) Eos # (Auto) Baso # (Auto) PT 11.6 INR 1.1 APTT 28.4 PTT Ratio 1.0 Sodium Potassium Chloride Carbon Dioxide Anion Gap BUN Creatinine Est Cr Clr Drug Dosing Est GFR ( Amer) Est GFR (Non-Af Amer) BUN/Creatinine Ratio Glucose Estimat Average Glucose Hemoglobin A1c Calcium Total Bilirubin AST ALT Alkaline Phosphatase Troponin I Total Protein Albumin Globulin Albumin/Globulin Ratio Triglycerides Cholesterol LDL Cholesterol, Calc VLDL Cholesterol, Calc HDL Cholesterol Cholesterol/HDL Ratio Lipase Vitamin B12 Folate TSH 0.103 L Random Cortisol 31.48 Nasal Screen MRSA (PCR) 01/25/19 01/25/19 01/25/19 22:06 22:06 23:35 WBC RBC Hgb Hct MCV MCH MCHC RDW Std Deviation RDW Coeff of Kali Plt Count MPV Immature Gran % (Auto) Neut % (Auto) Lymph % (Auto) [place] % (Auto) Eos % (Auto) Baso % (Auto) Immature Gran # (Auto) Neut # (Auto) Lymph # (Auto) [place] # (Auto) Eos # (Auto) Baso # (Auto) PT INR APTT PTT Ratio Sodium Potassium Chloride Carbon Dioxide Anion Gap BUN Creatinine Est Cr Clr Drug Dosing Est GFR ( Amer) Est GFR (Non-Af Amer) BUN/Creatinine Ratio Glucose Estimat Average Glucose Hemoglobin A1c Calcium Total Bilirubin AST ALT Alkaline Phosphatase Troponin I 6.460 H* Total Protein Albumin Globulin Albumin/Globulin Ratio Triglycerides Cholesterol LDL Cholesterol, Calc VLDL Cholesterol, Calc HDL Cholesterol Cholesterol/HDL Ratio Lipase Vitamin B12 811 Folate > 24.00 TSH Random Cortisol Nasal Screen MRSA (PCR) Negative 01/26/19 01/26/19 01/26/19 03:42 05:32 05:32 WBC 12.29 H RBC 3.73 L Hgb 12.4 Hct 38.5 MCV 103.2 H MCH 33.2 MCHC 32.2 RDW Std Deviation 57.5 H RDW Coeff of Kali 15.3 H Plt Count 129 L MPV 10.4 Immature Gran % (Auto) Neut % (Auto) Lymph % (Auto) [place] % (Auto) Eos % (Auto) Baso % (Auto) Immature Gran # (Auto) Neut # (Auto) Lymph # (Auto) [place] # (Auto) Eos # (Auto) Baso # (Auto) PT INR APTT 58.3 H* PTT Ratio 2.2 Sodium 134 L Potassium 5.2 H Chloride 94 L Carbon Dioxide 31 Anion Gap 9.0 BUN 44 H Creatinine 9.39 H* D Est Cr Clr Drug Dosing 6.0 Est GFR ( Amer) 4.2 Est GFR (Non-Af Amer) 3.6 BUN/Creatinine Ratio 4.7 L Glucose 111 H Estimat Average Glucose Hemoglobin A1c Calcium 9.0 Total Bilirubin 1.0 AST 48 H ALT 25 Alkaline Phosphatase 95 Troponin I 7.270 H* Total Protein 7.6 Albumin 2.9 L Globulin 4.7 H Albumin/Globulin Ratio 0.6 L Triglycerides 75 Cholesterol 117 LDL Cholesterol, Calc 41 VLDL Cholesterol, Calc 15 HDL Cholesterol 61 Cholesterol/HDL Ratio 2 Lipase Vitamin B12 Folate TSH Random Cortisol Nasal Screen MRSA (PCR) 01/26/19 09:49 WBC RBC Hgb Hct MCV MCH MCHC RDW Std Deviation RDW Coeff of Kali Plt Count MPV Immature Gran % (Auto) Neut % (Auto) Lymph % (Auto) [place] % (Auto) Eos % (Auto) Baso % (Auto) Immature Gran # (Auto) Neut # (Auto) Lymph # (Auto) [place] # (Auto) Eos # (Auto) Baso # (Auto) PT INR APTT PTT Ratio Sodium Potassium Chloride Carbon Dioxide Anion Gap BUN Creatinine Est Cr Clr Drug Dosing Est GFR ( Amer) Est GFR (Non-Af Amer) BUN/Creatinine Ratio Glucose Estimat Average Glucose Hemoglobin A1c Calcium Total Bilirubin AST ALT Alkaline Phosphatase Troponin I 9.110 H* Total Protein Albumin Globulin Albumin/Globulin Ratio Triglycerides Cholesterol LDL Cholesterol, Calc VLDL Cholesterol, Calc HDL Cholesterol Cholesterol/HDL Ratio Lipase Vitamin B12 Folate TSH Random Cortisol Nasal Screen MRSA (PCR) Medications Administered Current Inpatient Medications Aspirin (Ecotrin Ectab) 81 mg PO DAILY [facility] Stop: 02/25/19 08:59 Last Admin: 01/26/19 09:44 Dose: 81 mg Documented by: Atorvastatin Calcium (Lipitor) 40 mg PO HS [facility] Stop: 02/25/19 20:59 Calcium Acetate (Phoslo) 1,334 mg PO TIDM [facility] Stop: 02/25/19 07:59 Last Admin: 01/26/19 12:15 Dose: 1,334 mg Documented by: Calcium Acetate (Phoslo) 667 mg PO TIDM PRN PRN Reason: .WITH SNACKS Stop: 02/25/19 07:59 Clopidogrel Bisulfate (Plavix) 75 mg PO DAILY [facility] Stop: 02/25/19 08:59 Last Admin: 01/26/19 09:43 Dose: 75 mg Documented by: Cyclobenzaprine HCl (Flexeril) 5 mg PO BID PRN PRN Reason: MUSCLE SPASMS Stop: 02/24/19 21:39 Dextrose (Dextrose 50%) 25 - 50 ml IV UD PRN; Protocol PRN Reason: Hypoglycemia Protocol Stop: 02/24/19 21:39 Famotidine (Pepcid) 20 mg PO QAM PRN PRN Reason: acid reflex Stop: 02/24/19 21:39 Last Admin: 01/26/19 09:44 Dose: 20 mg Documented by: Glucagon (Glucagen) 1 mg SQ UD PRN; Protocol PRN Reason: Hypoglycemia Protocol Stop: 02/24/19 21:39 Glucose (Dex4 Glucose) 4 - 8 tabs PO UD PRN; Protocol PRN Reason: Hypoglycemia Protocol Stop: 02/24/19 21:39 Glucose (Glucose 40%) 15 - 30 gm PO UD PRN; Protocol PRN Reason: Hypoglycemia Protocol Stop: 02/24/19 21:39 Heparin Sodium (Porcine) (Heparin Iv Bolus) 2,000 units IV TODAY@1200 [facility] Stop: 01/26/19 18:00 Heparin Sodium (Porcine) (Heparin Iv Bolus) 500 units IV TODAY@1200,1300 [facility] Stop: 01/26/19 18:00 Heparin Sodium/Dextrose (Heparin Sodium/Dextrose) 25,000 units in 500 mls @ 27 mls/hr IV .[id number] [facility]; Protocol Stop: 02/24/19 22:14 Last Titration: 01/26/19 06:49 Dose: 1,350 units/hr, 27 mls/hr Documented by: Sodium Chloride (Nss 1000ml) 1,000 mls @ 0 mls/hr IV .Q0M PRN PRN Reason: For Hemodialysis Use ONLY Stop: 01/26/19 17:43 Ketoconazole (Nizoral 2%) 1 appln EXT DAILY [facility] Stop: 02/05/19 08:59 Last Admin: 01/26/19 09:44 Dose: 1 appln Documented by: Levothyroxine Sodium (Synthroid) 100 mcg PO SUTUWEFRSA [facility] Stop: 02/25/19 06:29 Last Admin: 01/26/19 06:11 Dose: 100 mcg Documented by: Levothyroxine Sodium (Synthroid) 150 mcg PO MoTh@0630 [facility] Stop: 02/27/19 06:29 Lorazepam (Ativan) 1 mg PO QPM PRN PRN Reason: Anxiety Stop: 02/24/19 23:18 Last Admin: 01/25/19 23:44 Dose: 1 mg Documented by: Miscellaneous (Carbohydrates For Hypoglycemia) 15 - 30 gm PO UD PRN PRN Reason: Hypoglycemia Protocol Stop: 02/24/19 21:39 Morphine Sulfate (Morphine Sulfate) 2 mg IV Q30M PRN PRN Reason: Chest Pain Stop: 02/08/19 21:39 Last Admin: 01/26/19 12:59 Dose: 2 mg Documented by: Multivitamins/Minerals (Multivitamin W/ Minerals Tab) 1 tab PO DAILY [facility] Stop: 02/25/19 08:59 Last Admin: 01/26/19 09:44 Dose: 1 tab Documented by: Nitroglycerin (Nitrostat) 0.4 mg SL UD PRN PRN Reason: Chest Pain Stop: 02/24/19 21:39 Tramadol HCl (Ultram) 50 mg PO Q12 [facility] Stop: 02/25/19 08:59 Last Admin: 01/26/19 09:47 Dose: 50 mg Documented by: Zolpidem Tartrate (Ambien) 5 mg PO HS PRN PRN Reason: Sleep Stop: 02/24/19 21:39 PG Care Time/CCT Total # of Minutes Spent Total Time Spent with Patient: Total time spent is greater than 50% in coordination of care (as documented) at patient's floor/unit and/or counseling patient:
[2019-01-26] MEDS: HEPARIN SOD (PORCINE) 1000 UNIT/ML 10 ML VIAL IV SCH (18:36)
[2019-01-26] MEDS: HEPARIN SODIUM/DEXTROSE 25,000 UNITS/500 ML BAG IV SCH (19:44)
[2019-01-26] MEDS: ATORVASTATIN 40 MG TAB PO SCH (20:21)
[2019-01-26] MEDS ORDERED: VANCOMYCIN CONSULT ACTIVE PRN (22:17)
[2019-01-26] MEDS ORDERED: VANCOMYCIN HCL 2,000 MG in SODIUM CHLORIDE 0.9% 500 ML IV ONE (22:17)
[2019-01-27] MEDS: LEVOTHYROXINE SODIUM 100 MCG TABLET PO SCH (05:58)
[2019-01-27] MEDS ORDERED: VANCOMYCIN CONSULT ACTIVE PRN (07:39)
[2019-01-27] MEDS ORDERED: VANCOMYCIN HCL 1,000 MG in SODIUM CHLORIDE 0.9% 250 ML IV SCH (07:45)
[2019-01-27] MEDS: KETOCONAZOLE 2% CR 15 GM TUBE EXT SCH (08:06)
[2019-01-27] MEDS: CALCIUM ACETATE 667 MG CAP PO SCH ×3 (08:06→16:44)
[2019-01-27] MEDS: CEROVITE ADV FORMULA TAB PO SCH (08:06)
[2019-01-27] MEDS: ASPIRIN 81 MG ECTAB PO SCH (08:06)
[2019-01-27 09:00] LABS: Partial Thromboplastin Time 82.2 Seconds (21.0-31.0)
[2019-01-27 09:10] LABS: Creatinine Clr Calc Pharmacy 7.4 ml/min; Est GFR (African American) 5.4; Est GFR (Non-African American) 4.7
--- NOTE | 2019-01-27 09:15 | Ultrasound Report ---
US arterial duplex LE RT CLINICAL HISTORY: 78 years-old Female presenting with possible infected dialysis graft. TECHNIQUE: Real-time grayscale and color and spectral Doppler ultrasound imaging of the right arterie s was performed. Measurements calculated based on NASCET criteria. COMPARISON: None. FINDINGS: RIGHT: A graft is in place in the right inguinal region and is patent. There is a peak systolic velocity of 86 cm/s at the outflow anastomosis with the common femoral vein. Expected low resistance wave forms a re evident. The common femoral vein is patent with adequate flow on color and spectral Doppler. The c ommon femoral artery is also patent with a peak systolic velocity of 212 cm/s and expected low resist ance waveforms. The inflow anastomotic site has a peak systolic velocity of 319 cm/s. More distally w ithin the graft the peak systolic velocity measures 260 cm/s and 344 cm/s. Beyond this site, velocity measures 102 cm/s and 99 cm/s. Several hypoechoic to anechoic collections are noted in the right inguinal region, the largest measur ing 4.3 x 3.6 x 1.6 cm. These appear superficial to the subjacent musculature. No internal color Dopp ler flow within these collections. IMPRESSION: 1. Patent dialysis graft with an apparent arterial origin at the right common femoral artery and ins ertion at the right common femoral vein. No inflow or outflow stenosis. No in stent thrombosis. 2. A few small surrounding hematomas. No pseudoaneurysm. Electronically signed by: Chirag Devine M.D. 01/27/2019 9:14 AM
[2019-01-27] MEDS: TRAMADOL HCL 50 MG TABLET PO SCH ×2 (09:23→20:26)
--- NOTE | 2019-01-27 10:22 | Nephrology Progress Note ---
Date of Service January 27, 2019 Assessment & Plan (1) ESRD (end stage renal disease) on dialysis: -- Patient dialyzed yesterday via IJ THC. No acute indication for HD today -- Case discussed w/ Vascular Surgery this am. Will request HD 1st shift tomorrow to allow removal of R IJ THC in afternoon -- R femoral AVG US report reviewed: small fluid collection near graft. Probable hematoma from access attempt yesterday. Vascular Surgery plans B LE CTA to assess further (2) Elevated troponin I level: -- Evaluation as per Cardiology (3) Fever: -- Blood cultures have grown out G+ cocci. Vanco 2 g IV x 1 administered 01/26/19. Patient has now defervesced (4) DM type 2 (diabetes mellitus, type 2): Subjective Ms. Monae was seen & examined in her hospital room this morning. Dialysis was performed yesterday. Patient was hypotensive w/ SBP 80 - 90 mmHg throughout treatment. She completed treatment net 500 cc volume positive. R thigh AVG could not be accessed. Patient was dialyzed via her R IJ THC. Review of Systems Constitutional: + fever and + weakness Eyes: no worsening vision and no problem reported Ear, Nose, Mouth, Throat: no problem reported Respiratory: no cough and no dyspnea Cardiovascular: + chest pain (L shoulder discomfort w/ activity); no palpitations and no edema Gastrointestinal: no abdominal pain, no nausea, no vomiting and no diarrhea/loose stools Genitourinary: no dysuria and no hematuria Musculoskeletal: no back pain Integumentary: no rash Neurologic: no falls, no dizziness and no confusion Physical Exam Constitutional: + overweight Eyes: PERRL, conjunctivae normal, anicteric sclerae ENMT: external ear and nose normal, oropharynx normal Neck: trachea midline, no thyromegaly R IJ THC in place Respiratory: normal respiratory effort, lungs clear to auscultation Cardiovascular: RRR, no murmur, no edema Extremities: + AV fistula (R femoral AVG + bruit, no erythema or fluctuance) Gastrointestinal (Abdomen): normal bowel sounds, soft, nontender, no hepatosplenomegaly Musculoskeletal: Extremities: no cyanosis Skin: no rashes, warm and dry Neurologic: awake; not confused Results & Data Vital Signs (Past 12 Hours) Vital Signs Temp Pulse Resp BP BP Pulse Ox 01/27/19 07:40 36.8 C 91 H 18 82/44 L 90 01/27/19 03:20 36.9 C 83 18 86/59 L 92 01/26/19 22:45 37.6 C H 100 H 18 78/51 L 92 PG Care Time/CCT Total # of Minutes Spent Total Time Spent with Patient: Total time spent is greater than 50% in coordination of care (as documented) at patient's floor/unit and/or counseling patient:
[2019-01-27] MEDS: LORazepam 1 MG TAB PO PRN (10:32)
[2019-01-27] MEDS: MoRPHine SULFATE 2 MG/ML CARP IV PRN (10:32)
[2019-01-27] MEDS ORDERED: OPTIRAY 320 125ml IV PRN (10:48)
--- NOTE | 2019-01-27 11:15 | CT Scan Report ---
CT angio femur RT wo/w con CLINICAL HISTORY: 78 years-old Female presenting with infected dialysis graft, graft still in place. TECHNIQUE: Multidetector CT angiography of the right femur was performed before and after the adminis tration of intravenous contrast. 3-D volumetric and/or maximum intensity projection (MIP) images were subsequently reconstructed for review. IV contrast: 119 mL of Optiray 320. One or more dose lowering techniques were used consistent with the principles of ALARA (as low as reasonably achievable), incl uding automatic exposure control, mA or kV adjustment to individual patient size, and/or use of itera tive reconstruction. COMPARISON: None. CT DOSE (mGy.cm): The estimated cumulative dose is 761.50 mGy.cm. FINDINGS: Butcher Supervisor topogram: Orthopedic hardware. A graft is in place extending from the superficial femoral artery looping along the anterior subcutan eous tissues of the leg and inserting onto the common femoral vein. A stent is in place at the venous insertion site. The superficial femoral artery is narrow proximal to the graft anastomosis with a mi nimal diameter of 3.1 mm. There is no evidence of stenosis at the graft arterial inflow anastomosis. The graft is widely patent throughout its course. The stent is also patent at the venous outflow. Com mon femoral vein patent. Nonopacification of the superficial femoral vein and deep femoral vein as a result of the phase of contrast. The right superficial and deep femoral arteries are patent beyond the anastomosis though there is sev ere atherosclerotic narrowing of the proximal SFA with a minimal diameter of 2.1 mm. Diffuse atherosc lerosis is also noted distally though the arteries remain patent. Small collections are noted in the subcutaneous tissue of the anterior thigh with densities consisten t with hematomas. These measure up to 2.6 cm in diameter. Surgical material noted in the inguinal reg ion. No evidence of a pseudoaneurysm. Limited visualization of intrapelvic contents normal. Severe degenerative changes of the right hip an d right knee. Nonspecific subcutaneous edema diffusely. Mild fatty atrophy of the musculature may rel ate to the patient's age. IMPRESSION: 1. Arterial venous graft in the proximal right lower extremity is widely patent. No evidence of infl ow or outflow stenosis. Stent at the venous outflow widely patent. 2. Stenosis of the right SFA proximal to the arterial anastomosis with a minimum diameter of 3.1 mm. Distal narrowing of the proximal right SFA also noted with a minimum diameter of 2.1 mm. This is on a background of diffuse atherosclerosis. 3. Right common femoral vein patent. Nonopacification of the more distal veins due to the phase of c ontrast. 4. Small hematomas in the anterior thigh. No pseudoaneurysm. Electronically signed by: Chirag Devine M.D. 01/27/2019 11:13 AM
--- NOTE | 2019-01-27 11:28 | Pharmacy Report ---
Pharmacy Abx Dose Short Note - Date of Service January 27, 2019 - Assessment & Plan Assessment 78 year old F receiving vancomycin for treatment of bacteremia. Cultures currently reported as gram positive cocci. Discussed with lab and no rapid PCR run as gram stain looks more like gram positive cocci in chains or gram positive bacilli. Will await further organism identification. Patient dialyzed yesterday and per nephrology note plan to dialyze again tomorrow. Will dose by levels. Today's random is 22.2. Will order another random level with AM labs to asses need for post dialysis re-dosing. Day # 2 of antimicrobial therapy. Plan Vancomycin * Random level is 22.2 mcg/mL * Loading dose of 2000 mg IV X 1 administered last evening * Goal trough level : 15 to 20 mcg/mL * Trough or random level ordered for: 01/28/19 with AM labs Pharmacy will continue to follow and will adjust dose/frequency as necessary. Thank you.
--- NOTE | 2019-01-27 11:31 | CT Scan Report ---
CT ANGIOGRAPHY OF THE LEFT FEMUR/THIGH CLINICAL HISTORY: partial graft still in place, infected COMPARISON STUDY: No previous studies for comparison. TECHNIQUE: Helical axial images of the left thigh/femur were obtained following intravenous injection 119 cc Optiray 320 IV. Sagittal and coronal reconstructions were viewed as well as maximal intensity projections on an independent 3-D workstation. Automated exposure control was utilized for the study . A dose lowering technique was utilized adhering to the principles of ALARA. FINDINGS: There is no fracture or evidence for osteomyelitis within the left femur. Postoperative fin dings within the left groin are noted. There is no fluid collection to suggest an abscess. There is m oderate atherosclerotic plaque within the left common femoral, superficial femoral and profunda vesse ls. There is moderate stenosis of the distal left common femoral artery with mild stenosis of the pro ximal left superficial femoral artery. There is mild stenosis of visualized portions of the left popl iteal artery. There is no pseudoaneurysm. There is no hematoma. IMPRESSION: 1. No acute process within the left thigh. No abscess. No evidence for osteomyelitis. 2. Moderate atherosclerotic plaque. Moderate stenosis of the distal left common femoral artery with m ild stenosis of the proximal left superficial femoral artery and visualized portions of the left popl iteal artery. Electronically signed by: Jt Justin M.D. 01/27/2019 11:30 AM
[2019-01-27] MEDS ORDERED: ONDANSETRON INJ 2 MG/ML 2 ML VIAL IV PRN (12:20)
[2019-01-27] MEDS ORDERED: MoRPHine SULFATE 2 MG/ML CARP IV PRN (12:20)
--- NOTE | 2019-01-27 12:22 | Cardiology Progress Note ---
Date of Service January 27, 2019 Assessment & Plan (1) Left shoulder pain: (2) Elevated troponin I level: (3) Fever: (4) CAD (coronary artery disease): (5) DM type 2 (diabetes mellitus, type 2): Complex 78 female admitted with left shoulder discomfort. Elevated troponins likely secondary to demand ischemia in the setting of sepsis, hypotension, tachycardia, and end-stage renal disease. 2D transthoracic echocardiogram demonstrates a mild decline in systolic function with moderate i nferior wall hypokinesis. The inferior wall motion abnormality is unchanged compared to previous studies. The mild decline in LV systolic function I suspect is secondary to sepsis syndrome. Continue IV heparin currently. Continue broad spectrum antibiotics as per internal medicine. Await input from vascular surgery regarding removal of tunneled catheter as well as potential AV graft infection. Subjective Patient seen and examined the bedside. Previously noted shoulder discomfort has resolved. Gram-positive cocci growing in blood cultures. Denies chest pain or shortness of breath. Notes thoracic back pain which is not unusual for her. No fever or chills overnight. Tolerated dialysis treatment. No dysrhythmias on telemetry. Review of Systems Review of Systems: All systems reviewed & are unremarkable except as noted in HPI & below Physical Exam Constitutional: well developed, well nourished and + obese; no acute distress Eyes: PERRL, conjunctivae normal, anicteric sclerae Respiratory: normal respiratory effort, lungs clear to auscultation Cardiovascular: Rate/Rhythm: regular rate and regular rhythm Heart Sounds: normal S1 and normal S2; no murmur Vessels: femoral pulses present (Palpable right lower extremity thrill. Palpable left femoral pulse.); + radial pulses abnormal Gastrointestinal (Abdomen): Inspection/Auscultation: abdomen normal to inspection, + abdomen distended and normal bowel sounds Percussion/Palpation: abdomen nontender, no guarding and abdomen not rigid Neurologic: PERRL, EOMI, accommodation nl, no face palsy, no dysarthria Results & Data Vital Signs (Past 12 Hours) Vital Signs Temp Pulse Resp BP BP Pulse Ox 01/27/19 11:46 36.6 C 76 22 79/51 L 90 01/27/19 07:40 36.8 C 91 H 18 82/44 L 90 01/27/19 03:20 36.9 C 83 18 86/59 L 92 (1) Left shoulder pain Chronicity: acute Qualified Code(s): M25.512 - Pain in left shoulder (2) CAD (coronary artery disease) Associated angina: angina presence unspecified Coronary Disease-Associated Artery/Lesion type: unspecified vessel or lesion type [place] vs. transplanted heart: [place] heart Qualified Code(s): I25.10 - Atherosclerotic heart disease of [place] coronary artery without angina pectoris
[2019-01-27] MEDS: MoRPHine SULFATE 4 MG/ML 1 ML CARP\\VIAL IV PRN (12:35)
--- NOTE | 2019-01-27 13:05 | Consultation ---
Date of Consultation January 27, 2019 Assessment & Plan (1) Infection of central venous catheter: The CAT scan showed no fluid collection around the new graft or any suggestion of retained graft in the left lower extremity. The longstanding PermCath may be the source of the infection. Being that she has a functioning access in the right groin we recommend removing the PermCath. She will have dialysis tomorrow morning we will remove the PermCath following. I have discussed the risks options and benefits of the procedure with the patient. The patient understands the risks options and benefits and agrees to the procedure. Thank you very much for letting us participate in the care of this patient. History of Present Illness Reason for Consultation: Infected PermCath Attending Physician: Mateo Jones DO History of Present Illness 8-year-old female who had dialysis earlier this week through her PermCath. This was done after they cannot access the groin access. She subsequently had positive blood cultures and bacteremic. The PermCath is been in for a long period of time. She does have a functioning fistula in the right leg. She did have an infected graft in the left leg which was removed. Allergies Allergy/AdvReac Type Severity Reaction Status Date / Time Penicillins Allergy Unknown SWELLING/HI Verified 01/25/19 19:50 VES oxycodone AdvReac Unknown nausea Verified 01/25/19 19:50 Home Medications Home Medications Medication Instructions Recorded Confirmed Type atorvastatin 40 mg PO HS 01/29/18 01/25/19 History calcium acetate 1,334 mg PO TIDM 01/29/18 01/25/19 History famotidine 20 mg PO QAM PRN 01/29/18 01/25/19 History lorazepam 1 mg PO QPM PRN 01/29/18 01/25/19 History aspirin 81 mg tablet,delayed 81 mg PO DAILY 03/03/18 01/25/19 History release tramadol 50 mg tablet 50 mg PO Q12 07/20/18 01/25/19 History ProRenal 1 tab PO DAILY 10/12/18 01/25/19 History calcium acetate 667 mg PO .WITH SNACKS 10/12/18 01/25/19 History cyclobenzaprine 5 mg PO BID PRN 10/12/18 01/25/19 History levothyroxine 100 mcg PO SUTUWEFRSA 10/12/18 01/25/19 History levothyroxine 150 mcg PO MOTH 10/12/18 01/25/19 History clopidogrel [Plavix] 75 mg PO DAILY 01/25/19 01/25/19 History ketoconazole 1 applic TOPICAL UD 01/25/19 01/25/19 History Patient History Medical History Aortic stenosis Bladder cancer REASON FOR UPCOMING SURGERY [place]ary artery disease [place] [facility] [place] [facility] WITH SHOULDER PAIN SIMILAR TO HER ANGINA. TROPONIN WAS ELEVATED, PT ADMITTED. NO EKGS CHANGES TO SUGGEST ACS. TROPONIN BUMP FELT 2/2 RENAL DISEASE. ECHO WHILE INPT 01/30 SHOWED EF 55-60%, MILD INF WALL HK. Diabetes DIET CONTROLLED ESRD (end stage renal disease) on dialysis DIALYSIS DAYS , & FRI - WEEK OF SURGERY SCHEDULED DAYS ARE FRI, AND SAT FAILED AV FISTULA LUE, ALSO FAILED AND NOW INFECTION L GROIN GRAFT; CURRENTLY USING R CHEST PERMACATH History of hypertension History of myocardial infarction 2016...CATH (NO STENTS) "99% BLOCKED" - TRIPLE BYPASS History of recent hospitalization 02/01/18 - PAIN IN SHOULDER/ED VISIT [facility]/HEART ATTACK RULED OUT- CAUSE POSSIBLE MUSCULAR PROBLEM WITH SHOULDER Morbid obesity with BMI of 40.0-44.9, adult Spinal stenosis Wound infection LEFT GROIN WOUND VAC PLACED 03/18/18. Had a graft placed in L thigh/groin ~6wks ago, subsequent infection and graft removed 02/23/18, now has wound vac. Surgical History Hemodialysis access, AV graft CLOGGED AND SINCE REMOVED /CURRENTLY: DIALYSIS CATH RIGHT CHEST History of back surgery X2/FUSIONS History of cardiac [place]TRIPLE BYPASS History of colonoscopy History of heart bypass [place]TRIPLE [place]PASS 2016 History of hysterectomy Hx of cholecystectomy Family History Other Coronary heart disease Family history non-contributory Social History Preferred Language: Luxembourgish Communication Ability: Effective Collarette Separator Required: No Beliefs That Will Affect Care: [employer] Methodist Beliefs: Adventist marital status: Current Living Situation: Family Current Living Situation Comment: lives with daughter and son-in-law current occupational status: retired current occupation: worked previously at [employer] Feels Safe at Home: Yes Smoking Status: Never smoker Second Hand Exposure: No ; Hx Alcohol Use: No Hx Substance Use: No Review of Systems Review of Systems: All systems reviewed & are unremarkable except as noted in HPI & below Physical Exam Constitutional: WD/WN, vitals as above Cardiovascular: Rate/Rhythm: regular rate and regular rhythm Extremities: + AV fistula (Right groin) Chest (Breasts): Additional Comments: There is a PermCath in place in the chest wall. No drainage is noted Musculoskeletal: Extremities: extremities normal to inspection and strength 5/5 throughout; full ROM of extremities and no cyanosis Psychiatric: A+Ox3, euthymic affect Results & Data Vital Signs (Past 12 Hours) Vital Signs Temp Pulse Resp BP BP Pulse Ox 01/27/19 11:46 36.6 C 76 22 79/51 L 90 01/27/19 07:40 36.8 C 91 H 18 82/44 L 90 01/27/19 03:20 36.9 C 83 18 86/59 L 92
[2019-01-27] MEDS: CLOPIDOGREL BISULFATE 75 MG TAB PO SCH (15:18)
[2019-01-27] MEDS: HEPARIN SODIUM/DEXTROSE 25,000 UNITS/500 ML BAG IV SCH (15:18)
--- NOTE | 2019-01-27 15:34 | Hospitalist Progress Note ---
Date of Service January 27, 2019 Assessment & Plan (1) Bacteremia associated with intravascular line: blood cultures growing gram positive cocci likely source is the right tunneled HD catheter plan for HD tomorrow and will then remove the line graft in right lower leg should work well, it works as outpatient will ask ID to see the patient anticipate line holiday, allow blood cultures to become negative prior to any new access if needed started on Vancomycin today, pharmacy following for renal dosing (2) Fever: see above, due to bacteremia CXR without infiltrate, she does not make urine but will order UA/culture 2 blood cultures drawn on 01/26 - gram positive cocci (3) Non-ST elevated myocardial infarction: no longer has the left shoulder pain, never had chest pain/pressure troponin peaked at 7, down to 6 today echo without any new changes continue low-dose heparin drip for 48 hours Continue aspirin/Plavix Dr. Allan following Continue Lipitor 40 mg p.o. daily (4) ESRD (end stage renal disease) on dialysis: tolerated HD well 01/26 plan for HD tomorrow, will remove HD catheter afterwards (5) DM type 2 (diabetes mellitus, type 2): Diet-controlled, monitor for hypoglycemia, no episodes (6) Hyperlipidemia: Continue Lipitor (7) Hypothyroid: Continue Synthroid Subjective patient growing gram positive cocci on preliminary growth on both sets of blood cultures she is feeling okay, just c/o pain in upper back and low back eating okay breathing is stable, no chest pain, no true fever today, no chills, no sweats discussed the case with Dr. Wang, appreciate his input, plan for removal of catheter tomorrow will ask ID to see as well for definitive treatment plan Dr. Adamson following troponin trending down to [address] Allan, no evidence of acute RI Review of Systems Review of Systems: All systems reviewed & are unremarkable except as noted in HPI & below Musculoskeletal: + back pain and + joint pain Physical Exam Constitutional: WD/WN, vitals as above + overweight Eyes: PERRL, conjunctivae normal, anicteric sclerae ENMT: external ear and nose normal, oropharynx normal Neck: trachea midline, no thyromegaly Respiratory: normal respiratory effort, lungs clear to auscultation Cardiovascular: RRR, no murmur, no edema Gastrointestinal (Abdomen): normal bowel sounds, soft, nontender, no hepatosplenomegaly Musculoskeletal: Head/Neck/Chest: normocephalic and head atraumatic Spine: + thoracic spinal tenderness (left paraspinal muscles) and + paraspinal tenderness (left upper thoracic) Extremities: extremities normal to inspection Skin: no rashes, warm and dry (right tunneled HD catheter, skin without erythema, some debris on line) Neurologic: patellar DTR's 2+ bilat, sensation intact and PERRL, EOMI, accommodation nl, no face palsy, no dysarthria Psychiatric: A+Ox3, euthymic affect Lymphatic: no cervical or axillary lymphadenopathy Results & Data Vital Signs (Past 12 Hours) Vital Signs Temp Pulse Resp BP BP Pulse Ox 01/27/19 15:30 36.6 C 76 20 77/41 L 91 01/27/19 11:46 36.6 C 76 22 79/51 L 90 01/27/19 07:40 36.8 C 91 H 18 82/44 L 90 Laboratory Results Laboratory Results - last 24 hr 01/26/19 01/27/19 01/27/19 21:43 08:00 08:00 APTT 82.2 H* PTT Ratio 3.0 Creatinine 7.58 H* D Est Cr Clr Drug Dosing 7.4 Est GFR ( Amer) 5.4 Est GFR (Non-Af Amer) 4.7 Troponin I 6.070 H* Random Vancomycin 01/27/19 09:35 APTT PTT Ratio Creatinine Est Cr Clr Drug Dosing Est GFR ( Amer) Est GFR (Non-Af Amer) Troponin I Random Vancomycin 22.2 Microbiology 01/26/19 11:26 Blood Aerobic Blood Culture - Preliminary Gamma hemolytic strep.species 01/26/19 11:26 Blood Anaerobic Blood Culture - Preliminary Gamma hemolytic strep.species 01/26/19 11:06 Blood Aerobic Blood Culture - Preliminary Gram positive cocci 01/26/19 11:06 Blood Anaerobic Blood Culture - Preliminary Gram positive cocci Medications Administered Current Inpatient Medications Aspirin (Ecotrin Ectab) 81 mg PO DAILY STEPHANI Stop: 02/25/19 08:59 Last Admin: 01/27/19 08:06 Dose: 81 mg Documented by: Atorvastatin Calcium (Lipitor) 40 mg PO HS STEPHANI Stop: 02/25/19 20:59 Last Admin: 01/26/19 20:21 Dose: 40 mg Documented by: Calcium Acetate (Phoslo) 1,334 mg PO TIDM STEPHANI Stop: 02/25/19 07:59 Last Admin: 01/27/19 13:53 Dose: Not Given Documented by: Calcium Acetate (Phoslo) 667 mg PO TIDM PRN PRN Reason: .WITH SNACKS Stop: 02/25/19 07:59 Clopidogrel Bisulfate (Plavix) 75 mg PO DAILY [facility] Stop: 02/25/19 08:59 Last Admin: 01/27/19 15:18 Dose: 75 mg Documented by: Cyclobenzaprine HCl (Flexeril) 5 mg PO BID PRN PRN Reason: MUSCLE SPASMS Stop: 02/24/19 21:39 Dextrose (Dextrose 50%) 25 - 50 ml IV UD PRN; Protocol PRN Reason: Hypoglycemia Protocol Stop: 02/24/19 21:39 Famotidine (Pepcid) 20 mg PO QAM PRN PRN Reason: acid reflex Stop: 02/24/19 21:39 Last Admin: 01/26/19 09:44 Dose: 20 mg Documented by: Glucagon (Glucagen) 1 mg SQ UD PRN; Protocol PRN Reason: Hypoglycemia Protocol Stop: 02/24/19 21:39 Glucose (Dex4 Glucose) 4 - 8 tabs PO UD PRN; Protocol PRN Reason: Hypoglycemia Protocol Stop: 02/24/19 21:39 Glucose (Glucose 40%) 15 - 30 gm PO UD PRN; Protocol PRN Reason: Hypoglycemia Protocol Stop: 02/24/19 21:39 Heparin Sodium (Porcine) (Heparin Iv Bolus) 2,000 units IV ONE ONE Stop: 01/28/19 07:01 Heparin Sodium (Porcine) (Heparin Iv Bolus) 500 units IV Q1H [facility] Stop: 01/28/19 08:01 Heparin Sodium/Dextrose (Heparin Sodium/Dextrose) 25,000 units in 500 mls @ 24 mls/hr IV .[id number] STEPHANI; Protocol Stop: 02/24/19 22:14 Last Admin: 01/27/19 15:18 Dose: 1,200 units/hr, 24 mls/hr Documented by: Sodium Chloride (Nss 1000ml) 1,000 mls @ 0 mls/hr IV .Q0M PRN PRN Reason: For Hemodialysis Use ONLY Stop: 01/28/19 12:59 Ioversol (Optiray 320 125ml) 119 ml IV ONCE PRN PRN Reason: Interaction Checking Stop: 01/31/19 10:47 Last Admin: 01/27/19 10:49 Dose: 119 ml Documented by: Ketoconazole (Nizoral 2%) 1 appln EXT DAILY [facility] Stop: 02/05/19 08:59 Last Admin: 01/27/19 08:06 Dose: 1 appln Documented by: Levothyroxine Sodium (Synthroid) 100 mcg PO SUTUWEFRSA [facility] Stop: 02/25/19 06:29 Last Admin: 01/27/19 05:58 Dose: 100 mcg Documented by: Levothyroxine Sodium (Synthroid) 150 mcg PO MoTh@0630 [facility] Stop: 02/27/19 06:29 Lorazepam (Ativan) 1 mg PO QPM PRN PRN Reason: Anxiety Stop: 02/24/19 23:18 Last Admin: 01/27/19 10:32 Dose: 1 mg Documented by: Miscellaneous (Carbohydrates For Hypoglycemia) 15 - 30 gm PO UD PRN PRN Reason: Hypoglycemia Protocol Stop: 02/24/19 21:39 Miscellaneous Information (Consult) 1 ea N/A UD PRN PRN Reason: Consult Stop: 02/25/19 22:16 Morphine Sulfate (Morphine Sulfate) 2 mg IV Q30M PRN PRN Reason: Chest Pain Stop: 02/08/19 21:39 Last Admin: 01/27/19 10:32 Dose: 2 mg Documented by: Morphine Sulfate (Morphine Sulfate) 2 mg IV Q4H PRN PRN Reason: Pain Stop: 02/10/19 12:19 Morphine Sulfate (Morphine Sulfate) 4 mg IV Q4H PRN PRN Reason: Severe Pain Stop: 02/10/19 12:19 Last Admin: 01/27/19 12:35 Dose: 4 mg Documented by: Multivitamins/Minerals (Multivitamin W/ Minerals Tab) 1 tab PO DAILY [facility] Stop: 02/25/19 08:59 Last Admin: 01/27/19 08:06 Dose: 1 tab Documented by: Nitroglycerin (Nitrostat) 0.4 mg SL UD PRN PRN Reason: Chest Pain Stop: 02/24/19 21:39 Ondansetron HCl (Zofran) 4 mg IV Q4H PRN PRN Reason: Nausea Stop: 02/26/19 12:19 Last Admin: 01/27/19 12:35 Dose: 4 mg Documented by: Tramadol HCl (Ultram) 50 mg PO Q12 [facility] Stop: 02/25/19 08:59 Last Admin: 01/27/19 09:23 Dose: 50 mg Documented by: Zolpidem Tartrate (Ambien) 5 mg PO HS PRN PRN Reason: Sleep Stop: 02/24/19 21:39 PG Care Time/CCT Total # of Minutes Spent Total Time Spent with Patient: Total time spent is greater than 50% in coordination of care (as documented) at patient's floor/unit and/or counseling patient:
[2019-01-27 16:23] LABS: Partial Thromboplastin Ratio 2.3
[2019-01-27 16:29] LABS: Partial Thromboplastin Time 62.2 Seconds (21.0-31.0)
[2019-01-27] MEDS: CYCLOBENZAPRINE HCL 5 MG TAB PO PRN (16:32)
--- NOTE | 2019-01-27 20:19 | Medical Student Progress Note ---
Date of Service January 27, 2019 Assessment & Plan (1) Bacteremia associated with intravascular line: Agustina is afebrile today (36.7 C). Blood cultures from yesterday grew gram positive cocci. Her dialysis catheter was investigated as a cause via US. It will be used for dialysis tomorrow and then removed. Dialysis will continue via the right lower leg graft following removal. Vancomycin was started for the infection. (2) Non-ST elevated myocardial infarction: Agustina's no longer has any should pain. She has no SOB. EKG and Echo showed no acute changes. Troponins are downtrending. The initial raise in troponin is unreliable in the setting of ESRD. Plan to continue aspirin, plavix and lipitor. (3) ESRD (end stage renal disease) on dialysis: Plan to have dialysis tomorrow (01/28). Catheter will be removed following dialysis. right lower extremity graft will be used for dialysis moving forward. (4) DM type 2 (diabetes mellitus, type 2): Continue to control through diet. (5) Hyperlipidemia: Continue Lipitor (6) Hypothyroid: Continue Synthroid Subjective Agustina states that she feels better today. She no longer has shoulder pain. No SOB, chills, fevers or sweats. She does endorse some light headedness when she got out of bed to use the bathroom, but states that it resolved after sitting down. She has been eating and moving bowels OK. Troponins are trending down and there is no continuing concern for MN. The lar gest current concern is that the blood culture sent for fever grew gram positive cocci. Review of Systems Review of Systems: Constitutional: No fever / no chills / no sweats / no weakness / no fatigue Eyes: no blurring of vision / no eye pain / no discharge / no redness ENT: no hearing loss / no epistaxis /no swallowing problems Respiratory: no cough / no wheezing / no SOB / no hemoptysis Cardiovascular: Positive for chest pain / no lower extremity edema / no palpitation Abdomen: no pain /positive for dry heaves and nausea / no vomiting / no constipation Musculoskeletal: no joint pain / no muscle pain / no joint swelling Genitourinary: no dysuria / no incontinence / no urinary retention Neurologic: no focal weakness / no numbness/tingling / no ataxia Psychiatric: no depression symptoms / no anxiety / no insomnia Endocrine: no excessive thirst / no excessive urination Hematologic: no abnormal bleeding / no bruising / no LN swelling Skin: No rash / no pallor Physical Exam Constitutional: + overweight; no acute distress Eyes: PERRL, conjunctivae normal, anicteric sclerae ENMT: external ear and nose normal, oropharynx normal Neck: trachea midline, no thyromegaly Respiratory: normal respiratory effort, lungs clear to auscultation Cardiovascular: RRR, no murmur, no edema Rate/Rhythm: regular rate and regular rhythm Heart Sounds: normal S1 and normal S2; no murmur Gastrointestinal (Abdomen): normal bowel sounds, soft, nontender, no hepatosplenomegaly Inspection/Auscultation: abdomen normal to inspection, + abdomen distended and normal bowel sounds Percussion/Palpation: abdomen nontender, no guarding and abdomen not rigid Musculoskeletal: Extremities: no cyanosis Skin: no rashes, warm and dry Neurologic: PERRL, EOMI, accommodation nl, no face palsy, no dysarthria awake; not confused Results & Data Vital Signs (Past 12 Hours) Vital Signs Temp Pulse Pulse Resp BP Pulse Ox 01/27/19 19:13 36.7 C 78 18 79/40 L 90 01/27/19 16:00 80 01/27/19 15:30 36.6 C 76 20 77/41 L 91 01/27/19 11:46 36.6 C 76 22 79/51 L 90 Troponin I 6.070 H* Microbiology 01/26/19 11:26 Blood Aerobic Blood Culture - Preliminary Gamma hemolytic strep.species
[2019-01-27] MEDS: ATORVASTATIN 40 MG TAB PO SCH (20:24)
[2019-01-28] MEDS: CYCLOBENZAPRINE HCL 5 MG TAB PO PRN ×2 (00:06→12:44)
[2019-01-28] MEDS ORDERED: LEVOTHYROXINE SODIUM 150 MCG TABLET PO SCH (06:30)
[2019-01-28 06:52] LABS: Hematocrit (blood only) 35.3 % (37-47); Hemoglobin 11.3 g/dL (12.0-16.0); Mean Corpuscular Hemoglobin 32.8 pg (25-34); Mean Corpuscular Volume 102.3 fL (80-100); Mean Platelet Volume 11.2 fL (7.4-10.4); Platelet Count 131 K/uL (130-400); RDW Coefficient of Variation 15.5 % (11.5-14.5); RDW Standard Deviation 58.2 fL (36.4-46.3); Red Blood Count 3.45 M/uL (4.2-5.4); White Blood Count 13.55 K/uL (4.8-10.8)
[2019-01-28] MEDS ORDERED: HEPARIN SOD (PORCINE) 1000 UNIT/ML 10 ML VIAL IV ONE (07:00)
[2019-01-28] MEDS ORDERED: SODIUM CHLORIDE 0.9% 1000ML 1,000 ML IV PRN (07:00)
[2019-01-28 07:11] LABS: Partial Thromboplastin Ratio 1.9
[2019-01-28 07:12] LABS: Partial Thromboplastin Time 52.1 Seconds (21.0-31.0)
[2019-01-28 07:34] LABS: BUN Creatinine Ratio 5.7 (10-20); Calcium 9.1 mg/dl (8.5-10.1); Creatinine Clr Calc Pharmacy 6.4 ml/min; Est GFR (African American) 4.5; Est GFR (Non-African American) 3.9; Potassium 5.5 mmol/L (3.5-5.1)
[2019-01-28] MEDS: ASPIRIN 81 MG ECTAB PO SCH (08:19)
[2019-01-28] MEDS: CALCIUM ACETATE 667 MG CAP PO SCH ×3 (08:20→16:55)
[2019-01-28] MEDS: CLOPIDOGREL BISULFATE 75 MG TAB PO SCH (08:20)
[2019-01-28] MEDS: KETOCONAZOLE 2% CR 15 GM TUBE EXT SCH (08:20)
[2019-01-28] MEDS: CEROVITE ADV FORMULA TAB PO SCH (08:20)
[2019-01-28] MEDS: TRAMADOL HCL 50 MG TABLET PO SCH ×2 (08:21→20:21)
--- NOTE | 2019-01-28 09:25 | Nephrology Progress Note ---
Date of Service January 28, 2019 Assessment & Plan (1) ESRD (end stage renal disease) on dialysis: -- HD today via AVG -- Patient scheduled for IJ THC removal this afternoon -- LE CTA 01/27 revealed small hematoma from AVG access attempt. No obvious abscess (2) Elevated troponin I level: -- Evaluation as per Cardiology (3) Fever: -- Blood cultures have grown out gamma hemolytic streptococci. Vanco 2 g IV x 1 administered 01/26/19. Patient has now defervesced. Recommend monitoring Vanco level. Redose once trough < 20 mcg/mL. Patient will require at least 14 days therapy -- Recommend consultation w/ ID to outline treatment plan (4) DM type 2 (diabetes mellitus, type 2): Subjective Ms. Monae was seen & examined in her hospital room this morning. She c/o chronic low back/hip discomfort. Ms. Monae was afebrile overnight. She is awaiting dialysis this morning and removal of IJ THC this afternoon. Review of Systems Constitutional: + fever and + weakness Eyes: no worsening vision and no problem reported Ear, Nose, Mouth, Throat: no problem reported Respiratory: no cough and no dyspnea Cardiovascular: + chest pain (L shoulder discomfort w/ activity); no palpitations and no edema Gastrointestinal: no abdominal pain, no nausea, no vomiting and no diarrhea/loose stools Genitourinary: no dysuria and no hematuria Musculoskeletal: no back pain Integumentary: no rash Neurologic: no falls, no dizziness and no confusion Physical Exam Constitutional: + overweight Eyes: PERRL, conjunctivae normal, anicteric sclerae ENMT: external ear and nose normal, oropharynx normal Neck: trachea midline, no thyromegaly Respiratory: normal respiratory effort, lungs clear to auscultation Cardiovascular: RRR, no murmur, no edema Extremities: + AV fistula (R femoral AVG + bruit, no erythema or fluctuance) Gastrointestinal (Abdomen): normal bowel sounds, soft, nontender, no hepatosplenomegaly Musculoskeletal: Extremities: no cyanosis Skin: no rashes, warm and dry Neurologic: awake; not confused Results & Data Vital Signs (Past 12 Hours) Vital Signs Temp Pulse Resp BP BP Pulse Ox 01/28/19 08:10 36.5 C 80 29 H 93/44 L 94 01/28/19 04:23 36.6 C 80 18 89/51 L 95 01/27/19 23:36 36.5 C 78 18 72/54 L 93 PG Care Time/CCT Total # of Minutes Spent Total Time Spent with Patient: Total time spent is greater than 50% in coordination of care (as documented) at patient's floor/unit and/or counseling patient:
[2019-01-28] MEDS: HEPARIN SOD (PORCINE) 1000 UNIT/ML 10 ML VIAL IV SCH ×2 (10:10→11:10)
--- NOTE | 2019-01-28 12:34 | History & Physical Bridge Note ---
Date of Service January 28, 2019 History & Physical Bridge Note Patient for removal of permcath. I have discussed the risks options and benefits of the procedure with the patient. The patient understands the risks options and benefits and agrees to the procedure. I have examined the patient, reviewed the History & Physical and in the interval since the performance of the History & Physical I have noted the following changes of clinical significance: no changes noted
[2019-01-28] MEDS ORDERED: LIDOCAINE HCL 1% 20 ML VIAL ONE (14:02)
--- NOTE | 2019-01-28 14:16 | Infectious Disease Consult ---
Date of Consultation January 28, 2019 Assessment & Plan (1) Infection of central venous catheter: will change to rocephin, followrepeat blood cultures. await OR cultures. also concerned about underlying GI malignancy with S. bovis in blood stream. would benefit from abd imagin colonoscopy when medically stable. echo negative. will need 4 weeks IV rocephin from first negative culture (2) Gram positive sepsis: History of Present Illness Attending Physician: Mateo Jones, DO pt admitted with cp, found to have nstemi. blood cultures in ER now growing s. bovis. she is on vanco by level due to ESRD and HD. tmax 38 01/26, now afebrile. has permacath, suspected source - removed yesterday, cat tip culture pending. Echo negative veg. wbc 12, trop +, cardio following. states overall she is feeling fatigued, no pain, no f/c. tolerating abx. states breathing comfortable, on02.tolerating abx. Allergies Allergy/AdvReac Type Severity Reaction Status Date / Time Penicillins Allergy Unknown SWELLING/HI Verified 01/25/19 19:50 VES oxycodone AdvReac Unknown nausea Verified 01/25/19 19:50 Home Medications Home Medications Medication Instructions Recorded Confirmed Type atorvastatin 40 mg PO HS 01/29/18 01/25/19 History calcium acetate 1,334 mg PO TIDM 01/29/18 01/25/19 History famotidine 20 mg PO QAM PRN 01/29/18 01/25/19 History lorazepam 1 mg PO QPM PRN 01/29/18 01/25/19 History aspirin 81 mg tablet,delayed 81 mg PO DAILY 03/03/18 01/25/19 History release tramadol 50 mg tablet 50 mg PO Q12 07/20/18 01/25/19 History ProRenal 1 tab PO DAILY 10/12/18 01/25/19 History calcium acetate 667 mg PO .WITH SNACKS 10/12/18 01/25/19 History cyclobenzaprine 5 mg PO BID PRN 10/12/18 01/25/19 History levothyroxine 100 mcg PO SUTUWEFRSA 10/12/18 01/25/19 History levothyroxine 150 mcg PO MOTH 10/12/18 01/25/19 History clopidogrel [Plavix] 75 mg PO DAILY 01/25/19 01/25/19 History ketoconazole 1 applic TOPICAL UD 01/25/19 01/25/19 History Patient History Medical History Aortic stenosis Bladder cancer REASON FOR UPCOMING SURGERY Coronary artery disease [place] 2016 WITH EMERGENT CABG X 3 AT [facility] [place] RECENTLY TO [facility] ED WITH SHOULDER PAIN SIMILAR TO HER ANGINA. TROPONIN WAS ELEVATED, PT ADMITTED. NO EKGS CHANGES TO SUGGEST ACS. TROPONIN BUMP FELT 2/2 RENAL DISEASE. ECHO WHILE INPT 01/30 SHOWED EF 55-60%, MILD INF WALL HK. Diabetes DIET CONTROLLED ESRD (end stage renal disease) on dialysis DIALYSIS DAYS , & SAT - WEEK OF SURGERY SCHEDULED DAYS ARE FRI, AND SAT FAILED AV FISTULA LUE, ALSO FAILED AND NOW INFECTION L GROIN GRAFT; CURRENTLY USING R CHEST PERMACATH History of hypertension History of myocardial infarction 2016...CATH (NO STENTS) "99% BLOCKED" - TRIPLE BYPASS History of recent hospitalization 02/01/18 - PAIN IN SHOULDER/ED VISIT [facility]/HEART ATTACK RULED OUT- CAUSE POSSIBLE MUSCULAR PROBLEM WITH SHOULDER Lethargy Morbid obesity with BMI of 40.0-44.9, adult Spinal stenosis Wound infection LEFT GROIN WOUND VAC PLACED 03/18/18. Had a graft placed in L thigh/groin ~6wks ago, subsequent infection and graft removed 02/23/18, now has wound vac. 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 Beliefs That Will Affect Care: Restorationist Restorationist Beliefs: Moravian marital status: Current Living Situation: Family Current Living Situation Comment: lives with daughter and son-in-law current occupational status: retired current occupation: worked previously at [employer] Feels Safe at Home: Yes Smoking Status: Never smoker Second Hand Exposure: No ; Hx Alcohol Use: No Hx Substance Use: No Review of Systems Review of Systems: All systems reviewed & are unremarkable except as noted in HPI & below Physical Exam Constitutional: WD/WN, vitals as above Eyes: PERRL, conjunctivae normal, anicteric sclerae ENMT: dry mm Neck: normal visual inspection Respiratory: normal respiratory effort, lungs clear to auscultation Auscultation: + diminished lung sounds Cardiovascular: RRR, no murmur, no edema Gastrointestinal (Abdomen): normal bowel sounds, soft, nontender, no hepatosplenomegaly Musculoskeletal: Head/Neck/Chest: + head abnormal to inspection, normocephalic and head atraumatic Skin: no rashes, warm and dry dressing c/d/i, no tenderness drainage at cath site Psychiatric: A+Ox3, euthymic affect Results & Data Vital Signs (Past 12 Hours) Vital Signs Temp Pulse Pulse Pulse Resp BP BP 01/28/19 13:46 36.9 C 81 01/28/19 13:00 78 109/54 L 01/28/19 12:40 77 89/46 L 01/28/19 12:20 78 92/41 L 01/28/19 12:00 76 76/24 L 01/28/19 11:40 70 98/42 L 01/28/19 11:20 71 73/44 L 01/28/19 11:00 77 90/45 L 01/28/19 10:40 73 89/45 L 01/28/19 10:20 72 72/35 L 01/28/19 10:00 73 70/45 L 01/28/19 09:40 79 85/50 L 01/28/19 09:20 78 81/43 L 01/28/19 09:02 36.8 C 01/28/19 08:10 36.5 C 80 29 H 01/28/19 04:23 36.6 C 80 18 89/51 L BP Pulse Ox 01/28/19 13:46 96/36 L 01/28/19 13:00 01/28/19 12:40 01/28/19 12:20 01/28/19 12:00 01/28/19 11:40 01/28/19 11:20 01/28/19 11:00 01/28/19 10:40 01/28/19 10:20 01/28/19 10:00 01/28/19 09:40 01/28/19 09:20 01/28/19 09:02 01/28/19 08:10 93/44 L 94 01/28/19 04:23 95 Laboratory Results Microbiology 01/26/19 11:26 Blood Aerobic Blood Culture - Final Streptococcus bovis 01/26/19 11:26 Blood Anaerobic Blood Culture - Final Streptococcus bovis 01/26/19 11:06 Blood Aerobic Blood Culture - Final Streptococcus bovis 01/26/19 11:06 Blood Anaerobic Blood Culture - Final Streptococcus bovis PG Care Time/CCT Total # of Minutes Spent Total Time Spent with Patient: Total time spent is greater than 50% in coor dination of care (as documented) at patient's floor/unit and/or counseling patient:
[2019-01-28] MEDS ORDERED: fentaNYL citrate 100 MCG/2 ML VIAL ONE (14:20)
[2019-01-28] MEDS ORDERED: MIDAZOLAM HCL 1 MG/ML 2ML VIAL ONE (14:20)
--- NOTE | 2019-01-28 14:22 | Pre Anesthesia Assessment ---
Date of Service January 28, 2019 Pre Sedation Assessment Vital Signs Temp Pulse Pulse Pulse Resp BP BP 01/28/19 14:15 36.7 C 86 20 01/28/19 13:46 36.9 C 81 01/28/19 13:00 78 109/54 L 01/28/19 12:40 77 89/46 L 01/28/19 12:20 78 92/41 L 01/28/19 12:00 76 76/24 L 01/28/19 11:40 70 98/42 L 01/28/19 11:20 71 73/44 L 01/28/19 11:00 77 90/45 L 01/28/19 10:40 73 89/45 L 01/28/19 10:20 72 72/35 L 01/28/19 10:00 73 70/45 L 01/28/19 09:40 79 85/50 L 01/28/19 09:20 78 81/43 L 01/28/19 09:02 36.8 C 01/28/19 08:10 36.5 C 80 29 H 01/28/19 04:23 36.6 C 80 18 89/51 L 01/27/19 23:36 36.5 C 78 18 01/27/19 19:13 36.7 C 78 18 01/27/19 16:00 80 01/27/19 15:30 36.6 C 76 20 BP Pulse Ox 01/28/19 14:15 110/47 L 98 01/28/19 13:46 96/36 L 01/28/19 13:00 01/28/19 12:40 01/28/19 12:20 01/28/19 12:00 01/28/19 11:40 01/28/19 11:20 01/28/19 11:00 01/28/19 10:40 01/28/19 10:20 01/28/19 10:00 01/28/19 09:40 01/28/19 09:20 01/28/19 09:02 01/28/19 08:10 93/44 L 94 01/28/19 04:23 95 01/27/19 23:36 72/54 L 93 01/27/19 19:13 79/40 L 90 01/27/19 16:00 01/27/19 15:30 77/41 L 91 Cardiovascular RRR, no murmur, no edema Respiratory normal respiratory effort, lungs clear to auscultation Pre-Sedation Airway Assessment Smoking Status: Never smoker Hx Sleep Apnea: No Short, Thick Neck: No Thyromental Distance: > or= 3.5 Finger Breadths Oral Cavity: + WNL Mallampati Class: I ASA: ASA3 NPO Status Date of Last Intake of Fluids: 01/27/19 Time of Last Intake of Fluids: 20:00 Date of Last Intake of Solid Food: 01/27/19 Time of Last Intake of Solid Foods: 20:00 Procedure Planning Contraindications for Sedation: none Current Medications Reviewed: Yes Notes The planned sedation has been discussed with the patient. Informed Consent was obtained. I have identified the patient, determined the appropriateness of sedation and have assessed the patient immediately prior to the procedure. All medicine(s) and interventions are by my order.
--- NOTE | 2019-01-28 14:31 | Operative Report ---
Post Operative Report Pre & Post Diagnosis Operation Date: 01/28/19 13:00 <No data on this case meets the specified criteria> I identified the patient and participated in the time-out.: Yes Procedure Operation Date: 01/28/19 13:00 <No data on this case meets the specified criteria> Surgeon Trevor Wang MD Manager Of Sales Nathaly Chino Estimated Blood Loss 0 Findings Consistent with Post-Op Diagnosis Specimens Permcath tip sent for culture Anesthesia Type RN Sedation Disposition Accompanied Patient To Recovery: No Disposition: Recovery Room Indications This is a 78 year old female with an infected Permcath. She presents for removal. The procedure and its associated risks were discussed with the patient. She wishes to proceed with the procedure. Surgical consent was obtained. Description of Procedure The patient was taken to the angio suite and placed in the supine position. The right side of the neck, chest wall and catheter were prepped and draped in a sterile manner. The patient was identified and a timeout was performed. Local anesthesia was then accomplished. The permcath and cuff were completely removed with ease; this did not require significant dissection. Pressure was then applied and adequate hemostasis was obtained. A sterile dressing was then applied. The patient left the angio suite in good condition and tolerated the procedure well. Dr. Wang was present and scrubbed for the entire procedure. I attest to the content of the Intraoperative Record and any orders documented therein. Any exceptions are noted below.
--- NOTE | 2019-01-28 14:34 | Post Operative Brief Note ---
Immediate Post Op Note v1 Date of Surgery January 28, 2019 Pre & Post Diagnosis Operation Date: 01/28/19 13:00 Pre Op Dx: Infected permcath Post Op Dx: Infected permcath I identified the patient and participated in the time-out.: Yes Procedure Operation Date: 01/28/19 13:00 Actual Procedures p Removal Of Perm Catheter, Moderate Concious Sedation 1425 to 1441(Right) - Trevor Wang MD Surgeon Trevor Wang MD Supervisor Operations MD Yanique Estimated Blood Loss 0 Findings Consistent with Post-Op Diagnosis Specimens tip sent for culture Anesthesia Type RN Sedation Complications none Disposition Accompanied Patient To Recovery: No Disposition: Recovery Room
--- NOTE | 2019-01-28 14:45 | Post Anesthesia Assessment ---
Date of Service January 28, 2019 Post Sedation Assessment Vital Signs Temp Pulse Pulse Pulse Resp BP BP 01/28/19 14:41 82 12 01/28/19 14:36 81 12 01/28/19 14:35 81 12 01/28/19 14:30 85 15 01/28/19 14:25 81 12 01/28/19 14:23 79 12 01/28/19 14:15 36.7 C 86 20 01/28/19 13:46 36.9 C 81 01/28/19 13:00 78 109/54 L 01/28/19 12:40 77 89/46 L 01/28/19 12:20 78 92/41 L 01/28/19 12:00 76 76/24 L 01/28/19 11:40 70 98/42 L 01/28/19 11:20 71 73/44 L 01/28/19 11:00 77 90/45 L 01/28/19 10:40 73 89/45 L 01/28/19 10:20 72 72/35 L 01/28/19 10:00 73 70/45 L 01/28/19 09:40 79 85/50 L 01/28/19 09:20 78 81/43 L 01/28/19 09:02 36.8 C 01/28/19 08:10 36.5 C 80 29 H 01/28/19 04:23 36.6 C 80 18 89/51 L 01/27/19 23:36 36.5 C 78 18 01/27/19 19:13 36.7 C 78 18 01/27/19 16:00 80 01/27/19 15:30 36.6 C 76 20 BP Pulse Ox 01/28/19 14:41 106/65 96 01/28/19 14:36 101/55 L 95 01/28/19 14:35 101/55 L 95 01/28/19 14:30 115/54 L 95 01/28/19 14:25 101/55 L 95 01/28/19 14:23 100/51 L 97 01/28/19 14:15 110/47 L 98 01/28/19 13:46 96/36 L 01/28/19 13:00 01/28/19 12:40 01/28/19 12:20 01/28/19 12:00 01/28/19 11:40 01/28/19 11:20 01/28/19 11:00 01/28/19 10:40 01/28/19 10:20 01/28/19 10:00 01/28/19 09:40 01/28/19 09:20 01/28/19 09:02 01/28/19 08:10 93/44 L 94 01/28/19 04:23 95 01/27/19 23:36 72/54 L 93 01/27/19 19:13 79/40 L 90 01/27/19 16:00 01/27/19 15:30 77/41 L 91 Recovery Score Activity: Moves 4 extremities Respiration: Deep Breath/Cough Circulation: +/-20% PreAnes Value Consciousness: Fully Awake Oxygen Saturation: O2 needed for >90% Post Anesthesia Score: 9 Discharge Sedation Level of Care: Fast Track Phase II Post Sedation Plan On clinical assessment, the patient appears to have tolerated the sedation without complications. Patient is recovering as anticipated. Patient will continue to be monitored by nursing and may be discharged when sedation discharge criteria are met per below protocol. Upon Completions of procedure up to 15 minutes continue every 5 minute vital signs and the P.A.R. score; then discharge to a Phase I or Fast Track to Phase II per the following guidelines: * Discharge Patient to appropriate Phase II area if PAR is 8 or greater or return to pre- procedure baseline. The post - procedure orders will be as directed. * If PAR score is less than 8 or not return to pre-procedure baseline then patient will follow Phase I monitoring till PAR is reached for Phase II. The Phase I may be done in procedure room or may call to secure a Phase I area. * If naloxone or flumazenil are used for reversal, hold in Phase I for continued monitoring from when last reversal dose was given for a minimum of 60 minutes or longer pending the nurse and/or physician discretion of patient condition before discharge to Phase II. Please call the Sedation Physician to re-evaluate and complete post-note for discharge to Phase II area. Do NOT discharge from procedure sedation or Phase 1 until post- sedation evaluation note is complete by procedure /sedation MD Sedation Discharge Instructions to be given to the patient at discharge to home.
--- NOTE | 2019-01-28 15:07 | Pharmacy Report ---
Pharmacy Abx Dose Short Note - Date of Service January 28, 2019 - Assessment & Plan Assessment 78 year old F receiving vancomycin for treatment of strep bovis bacteremia. Patient was dialyzed today and infected permcath was removed. Will redose this evening to maintain a therapeutic level. Will continue to dose by levels. ID following. Day # 3 of antimicrobial therapy. Plan Vancomycin * Random level of 17.5 mcg/mL is therapeutic * Redose with 750 mg IV X 1 @ 1800 * Goal trough level : 15 to 20 mcg/mL * Trough or random level ordered for: 01/29/19 with AM labs Pharmacy will continue to follow and will adjust dose/frequency as necessary. Thank you.
--- NOTE | 2019-01-28 15:56 | Hospitalist Progress Note ---
Date of Service January 28, 2019 Assessment & Plan (1) Bacteremia associated with intravascular line: blood cultures growing streptococcus, will continue Vancomycin likely source is the right tunneled HD catheter which was removed 01/28 and cultured repeat blood cultures tomorrow morning graft in right lower leg should work well, it works as outpatient continue Vancomycin, WBC slightly high at 13k, no fever no vegetations noted on echo if repeat blood cultures remain positive may need to consider SUZANNA (2) Fever: see above, due to bacteremia, Streptoccocus CXR without infiltrate, she does not make urine but will order UA/culture 2 blood cultures drawn on 01/26 - Strep repeat blood cultures tomorrow (3) Non-ST elevated myocardial infarction: no longer has the left shoulder pain, never had chest pain/pressure troponin peaked at 7, down to 6 yesterday echo without any new changes continue low-dose heparin drip for 48 hours, stopped morning of 01/28 Continue aspirin/Plavix Dr. Allan has signed off, can ask him to see again if she has new symptoms Continue Lipitor 40 mg p.o. daily (4) ESRD (end stage renal disease) on dialysis: tolerated HD well 01/26 and 01/28 right tunneled HD catheter removed 01/[address] Wang plan to use right lower extremity graft for access (5) DM type 2 (diabetes mellitus, type 2): Diet-controlled, monitor for hypoglycemia, no episodes today (6) Hyperlipidemia: Continue Lipitor (7) Hypothyroid: Continue Synthroid Subjective patient seen after she had HD this morning then went for removal of tunneled HD catheter tolerated procedures well no chest pain, no dyspnea, no fever or chills today she was hungry this afternoon waiting on food after being NPO all day updated her daughter at the bedside discussed the case with Dr. Wright, will continue Vancomycin for now, repeat blood cultures tomorrow discussed with Dr. Allan, he will sign off, can stop heparin gtt for initial diagnosis of NSTEMI reviewed labs, WBC 13k, Hb 11 Review of Systems Review of Systems: All systems reviewed & are unremarkable except as noted in HPI & below Constitutional: + fatigue and + weakness; no fever Respiratory: no cough and no dyspnea Cardiovascular: no chest pain, no syncope and no edema Gastrointestinal: no abdominal pain, no nausea, no vomiting, no constipation and no diarrhea/loose stools Physical Exam Constitutional: WD/WN, vitals as above + overweight Eyes: PERRL, conjunctivae normal, anicteric sclerae ENMT: external ear and nose normal, oropharynx normal Neck: trachea midline, no thyromegaly Respiratory: normal respiratory effort, lungs clear to auscultation Cardiovascular: RRR, no murmur, no edema Gastrointestinal (Abdomen): normal bowel sounds, soft, nontender, no hepatosplenomegaly Musculoskeletal: Head/Neck/Chest: normocephalic and head atraumatic Extremities: extremities normal to inspection Skin: no rashes, warm and dry (right tunneled HD catheter, skin without erythema, some debris on line) Neurologic: patellar DTR's 2+ bilat, sensation intact and PERRL, EOMI, accommodation nl, no face palsy, no dysarthria Psychiatric: A+Ox3, euthymic affect Lymphatic: no cervical or axillary lymphadenopathy Results & Data Vital Signs (Past 12 Hours) Vital Signs Temp Pulse Pulse Pulse Resp BP BP 01/28/19 15:33 36.8 C 76 21 01/28/19 15:22 207 H 01/28/19 15:04 36.5 C 84 84 16 01/28/19 14:41 82 12 01/28/19 14:36 81 12 01/28/19 14:35 81 12 01/28/19 14:30 85 15 01/28/19 14:25 81 12 01/28/19 14:23 79 12 01/28/19 14:15 36.7 C 86 20 01/28/19 13:46 36.9 C 81 01/28/19 13:00 78 109/54 L 01/28/19 12:40 77 89/46 L 01/28/19 12:20 78 92/41 L 01/28/19 12:00 76 76/24 L 01/28/19 11:40 70 98/42 L 01/28/19 11:20 71 73/44 L 01/28/19 11:00 77 90/45 L 01/28/19 10:40 73 89/45 L 01/28/19 10:20 72 72/35 L 01/28/19 10:00 73 70/45 L 01/28/19 09:40 79 85/50 L 01/28/19 09:20 78 81/43 L 01/28/19 09:02 36.8 C 01/28/19 08:10 36.5 C 80 29 H 01/28/19 04:23 36.6 C 80 18 89/51 L BP Pulse Ox 01/28/19 15:33 100/42 L 98 01/28/19 15:22 01/28/19 15:04 106/44 L 94 01/28/19 14:41 106/65 96 01/28/19 14:36 101/55 L 95 01/28/19 14:35 101/55 L 95 01/28/19 14:30 115/54 L 95 01/28/19 14:25 101/55 L 95 01/28/19 14:23 100/51 L 97 01/28/19 14:15 110/47 L 98 01/28/19 13:46 96/36 L 01/28/19 13:00 01/28/19 12:40 01/28/19 12:20 01/28/19 12:00 01/28/19 11:40 01/28/19 11:20 01/28/19 11:00 01/28/19 10:40 01/28/19 10:20 01/28/19 10:00 01/28/19 09:40 01/28/19 09:20 01/28/19 09:02 01/28/19 08:10 93/44 L 94 01/28/19 04:23 95 Laboratory Results Laboratory Results - last 24 hr 01/27/19 01/28/19 01/28/19 15:47 06:15 06:15 WBC RBC Hgb Hct MCV MCH MCHC RDW Std Deviation RDW Coeff of Kali Plt Count MPV APTT 62.2 H* 52.1 H* PTT Ratio 2.3 1.9 Sodium 129 L Potassium 5.5 H Chloride 93 L Carbon Dioxide 26 Anion Gap 10.0 BUN 50 H Creatinine 8.82 H* D Est Cr Clr Drug Dosing 6.4 Est GFR ( Amer) 4.5 Est GFR (Non-Af Amer) 3.9 BUN/Creatinine Ratio 5.7 L Glucose 99 Calcium 9.1 Random Vancomycin 01/28/19 01/28/19 06:15 06:15 WBC 13.55 H RBC 3.45 L Hgb 11.3 L Hct 35.3 L MCV 102.3 H MCH 32.8 MCHC 32.0 RDW Std Deviation 58.2 H RDW Coeff of Kali 15.5 H Plt Count 131 MPV 11.2 H APTT PTT Ratio Sodium Potassium Chloride Carbon Dioxide Anion Gap BUN Creatinine Est Cr Clr Drug Dosing Est GFR ( Amer) Est GFR (Non-Af Amer) BUN/Creatinine Ratio Glucose Calcium Random Vancomycin 17.5 Medications Administered Current Inpatient Medications Aspirin (Ecotrin Ectab) 81 mg PO DAILY [facility] Stop: 02/25/19 08:59 Last Admin: 01/28/19 08:19 Dose: 81 mg Documented by: Atorvastatin Calcium (Lipitor) 40 mg PO HS STEPHANI Stop: 02/25/19 20:59 Last Admin: 01/27/19 20:24 Dose: 40 mg Documented by: Calcium Acetate (Phoslo) 1,334 mg PO TIDM STEPHANI Stop: 02/25/19 07:59 Last Admin: 01/28/19 12:44 Dose: 1,334 mg Documented by: Calcium Acetate (Phoslo) 667 mg PO TIDM PRN PRN Reason: .WITH SNACKS Stop: 02/25/19 07:59 Clopidogrel Bisulfate (Plavix) 75 mg PO DAILY STEPHANI Stop: 02/25/19 08:59 Last Admin: 01/28/19 08:20 Dose: 75 mg Documented by: Cyclobenzaprine HCl (Flexeril) 5 mg PO BID PRN PRN Reason: MUSCLE SPASMS Stop: 02/24/19 21:39 Last Admin: 01/28/19 12:44 Dose: 5 mg Documented by: Dextrose (Dextrose 50%) 25 - 50 ml IV UD PRN; Protocol PRN Reason: Hypoglycemia Protocol Stop: 02/24/19 21:39 Famotidine (Pepcid) 20 mg PO QAM PRN PRN Reason: acid reflex Stop: 02/24/19 21:39 Last Admin: 01/26/19 09:44 Dose: 20 mg Documented by: Glucagon (Glucagen) 1 mg SQ UD PRN; Protocol PRN Reason: Hypoglycemia Protocol Stop: 02/24/19 21:39 Glucose (Dex4 Glucose) 4 - 8 tabs PO UD PRN; Protocol PRN Reason: Hypoglycemia Protocol Stop: 02/24/19 21:39 Glucose (Glucose 40%) 15 - 30 gm PO UD PRN; Protocol PRN Reason: Hypoglycemia Protocol Stop: 02/24/19 21:39 Vancomycin HCl 750 mg/ Sodium (Chloride) 265 mls @ 125 mls/hr IV TODAY@1800 [facility] Stop: 01/28/19 20:08 Ioversol (Optiray 320 125ml) 119 ml IV ONCE PRN PRN Reason: Interaction Checking Stop: 01/31/19 10:47 Last Admin: 01/27/19 10:49 Dose: 119 ml Documented by: Ketoconazole (Nizoral 2%) 1 appln EXT DAILY [facility] Stop: 02/05/19 08:59 Last Admin: 01/28/19 08:20 Dose: 1 appln Documented by: Levothyroxine Sodium (Synthroid) 100 mcg PO SUTUWEFRSA [facility] Stop: 02/25/19 06:29 Last Admin: 01/27/19 05:58 Dose: 100 mcg Documented by: Levothyroxine Sodium (Synthroid) 150 mcg PO MoTh@0630 [facility] Stop: 02/27/19 06:29 Last Admin: 01/28/19 06:00 Dose: 150 mcg Documented by: Lorazepam (Ativan) 1 mg PO QPM PRN PRN Reason: Anxiety Stop: 02/24/19 23:18 Last Admin: 01/27/19 10:32 Dose: 1 mg Documented by: Miscellaneous (Carbohydrates For Hypoglycemia) 15 - 30 gm PO UD PRN PRN Reason: Hypoglycemia Protocol Stop: 02/24/19 21:39 Miscellaneous Information (Consult) 1 ea N/A UD PRN PRN Reason: Consult Stop: 02/25/19 22:16 Morphine Sulfate (Morphine Sulfate) 2 mg IV Q30M PRN PRN Reason: Chest Pain Stop: 02/08/19 21:39 Last Admin: 01/27/19 10:32 Dose: 2 mg Documented by: Morphine Sulfate (Morphine Sulfate) 2 mg IV Q4H PRN PRN Reason: Pain Stop: 02/10/19 12:19 Morphine Sulfate (Morphine Sulfate) 4 mg IV Q4H PRN PRN Reason: Severe Pain Stop: 02/10/19 12:19 Last Admin: 01/27/19 12:35 Dose: 4 mg Documented by: Multivitamins/Minerals (Multivitamin W/ Minerals Tab) 1 tab PO DAILY [facility] Stop: 02/25/19 08:59 Last Admin: 12/12/19 08:20 Dose: 1 tab Documented by: Nitroglycerin (Nitrostat) 0.4 mg SL UD PRN PRN Reason: Chest Pain Stop: 02/24/19 21:39 Ondansetron HCl (Zofran) 4 mg IV Q4H PRN PRN Reason: Nausea Stop: 02/26/19 12:19 Last Admin: 01/27/19 12:35 Dose: 4 mg Documented by: Tramadol HCl (Ultram) 50 mg PO Q12 STEPHANI Stop: 02/25/19 08:59 Last Admin: 01/28/19 08:21 Dose: 50 mg Documented by: Zolpidem Tartrate (Ambien) 5 mg PO HS PRN PRN Reason: Sleep Stop: 02/24/19 21:39 PG Care Time/CCT Total # of Minutes Spent Total Time Spent with Patient: Total time spent is greater than 50% in coordination of care (as documented) at patient's floor/unit and/or counseling patient:
[2019-01-28] MEDS ORDERED: VANCOMYCIN HCL 750 MG in SODIUM CHLORIDE 0.9% 250 ML IV SCH (18:00)
[2019-01-28] MEDS: ATORVASTATIN 40 MG TAB PO SCH (20:21)
--- NOTE | 2019-01-28 22:23 | CT Scan Report ---
CT OF THE HEAD WITHOUT CONTRAST CLINICAL HISTORY: Altered mental status. COMPARISON STUDY: No previous studies for comparison. CT DOSE: 614.27 mGy.cm TECHNIQUE: Helical axial images of the head were obtained without IV contrast. Automated exposure con trol was utilized for the study. A dose lowering technique was utilized adhering to the principles o f ALARA. FINDINGS: No acute intracranial hemorrhage, midline shift or mass effect is present. The ventricular system is unremarkable. The basilar cisterns are patent. No extra-axial collections are present. Ther e are no findings to suggest acute dural sinus thrombosis or acute territorial infarct. No significan t calvarial abnormalities are present. Visualized portions of the sinuses and mastoid air cells are c lear. Matter hypodensities are noted. IMPRESSION: 1. No acute intracranial findings. 2. White matter hypodensities. Although nonspecific, small vessel disease is favored. Electronically signed by: Jt Justin M.D. 01/28/2019 10:21 PM
[2019-01-28] MEDS ORDERED: SODIUM CHLORIDE 0.9% 1000ML 500 ML IV ONE (23:00)
[2019-01-28] MEDS ORDERED: ASPIRIN 81 MG CHEW PO STA (23:06)
[2019-01-28] MEDS ORDERED: Heparin IV Low Dose *NO* Bolus IV ONE (23:12)
--- NOTE | 2019-01-28 23:12 | Communication Note ---
Date of Service: January 28, 2019 Based on my discussion with the patient at the time of admission, patient is full code, unfortunately I forgot to place this order on admission, so I placed with now since patient condition is getting more complicated.
--- NOTE | 2019-01-28 23:20 | Hospitalist Consultation ---
Date of Consultation January 28, 2019 Assessment & Plan (1) ST elevation: (2) Nihss score 11: Called by nursing just before 10pm due to patient with acute change in mental status. Nurse notes she was not tracking fingers on eye exam, pupils were not responsive, patient not answering questions appropriately, acutely disoriented. CT head was ordered stat. Nurse driven stroke-alert was called. CT head negative for acute changes; discussion with telestroke physician deemed symptoms more likely related to chronic medical issues/encephalopathy. Not tPA candidate. Recommended repeating labwork, monitoring symptoms and vitals, and consider brain MRI if still concerned. On my evaluation, patient was disoriented, but no aphasia, no acute motor deficits. She was c/o dry mouth and back pain (reportedly chronic). Vitals stable, on chronic 2L oxygen. Per chart review, patient admitted for NSTEMI, developed sepsis likely 2/2 HD line infection. Pt had been on heparin drip, DCd for procedure today for temp dialysis line in leg. Labs were drawn after tele-stroke evaluation, an EKG was obtained. It was noted on EKG the patient had a likely new second-degree heart block type II, as well as significant ST changes in leads I, III, V1, V2, V3. This incidental finding led to concern for STEMI. Of note patient's troponin level has been elevated since admission, which is difficult to discern due to her end-stage renal disease. She was not complaining of any acute chest pain. Interventional cardiology, Dr. Arnoldo Poole, was called and discussion was had regarding events of the evening as well as EKG changes. Due to patient not having any acute chest pain, medical management was advised. We resumed her heparin drip, gave her 324 aspirin, and it was discussed that should acute chest pain arise Dr. Poole would be recontacted. Was noted after she returned to the floor that her heart rate began to drop from previously sustaining in the 50s, to sustaining in the 40s, to dropping from 30s- 50s, which is new for her. She remained chest pain-free through the rest of the evening into this morning. We will reconsult cardiology this morning as it appears they had previously signed off. History of Present Illness Attending Physician: Mateo Jones DO Allergies Allergy/AdvReac Type Severity Reaction Status Date / Time Penicillins Allergy Unknown SWELLING/HI Verified 01/25/19 19:50 VES oxycodone AdvReac Unknown nausea Verified 01/25/19 19:50 Home Medications Home Medications Medication Instructions Recorded Confirmed Type atorvastatin 40 mg PO HS 01/29/18 01/25/19 History calcium acetate 1,334 mg PO TIDM 01/29/18 01/25/19 History famotidine 20 mg PO QAM PRN 01/29/18 01/25/19 History lorazepam 1 mg PO QPM PRN 01/29/18 01/25/19 History aspirin 81 mg tablet,delayed 81 mg PO DAILY 03/03/18 01/25/19 History release tramadol 50 mg tablet 50 mg PO Q12 07/20/18 01/25/19 History ProRenal 1 tab PO DAILY 10/12/18 01/25/19 History calcium acetate 667 mg PO .WITH SNACKS 10/12/18 01/25/19 History cyclobenzaprine 5 mg PO BID PRN 10/12/18 01/25/19 History levothyroxine 100 mcg PO SUTUWEFRSA 10/12/18 01/25/19 History levothyroxine 150 mcg PO MOTH 10/12/18 01/25/19 History clopidogrel [Plavix] 75 mg PO DAILY 01/25/19 01/25/19 History ketoconazole 1 applic TOPICAL UD 01/25/19 01/25/19 History Patient History Medical History Aortic stenosis Bladder cancer REASON FOR UPCOMING SURGERY Coronary artery disease PA 2015 WITH EMERGENT CABG X 3 AT [facility] [place]. RECENTLY TO [facility] ED WITH SHOULDER PAIN SIMILAR TO HER ANGINA. TROPONIN WAS ELEVATED, PT ADMITTED. NO EKGS CHANGES TO SUGGEST ACS. TROPONIN BUMP FELT 2/2 RENAL DISEASE. ECHO WHILE INPT 01/30 SHOWED EF 55-60%, MILD INF WALL HK. Diabetes DIET CONTROLLED ESRD (end stage renal disease) on dialysis DIALYSIS DAYS , & SAT - WEEK OF SURGERY SCHEDULED DAYS ARE FRI, AND SAT FAILED AV FISTULA LUE, ALSO FAILED AND NOW INFECTION L GROIN GRAFT; CURRENTLY USING R CHEST PERMACATH History of hypertension History of myocardial infarction 2016...CATH (NO STENTS) "99% BLOCKED" - TRIPLE BYPASS History of recent hospitalization 02/01/18 - PAIN IN SHOULDER/ED VISIT [facility]/HEART ATTACK RULED OUT- CAUSE POSSIBLE MUSCULAR PROBLEM WITH SHOULDER Lethargy Morbid obesity with BMI of 40.0-44.9, adult Spinal stenosis Wound infection LEFT GROIN WOUND VAC PLACED 03/18/18. Had a graft placed in L thigh/groin ~6wks ago, subsequent infection and graft removed 02/23/18, now has wound vac. Surgical History Hemodialysis access, AV graft CLOGGED AND SINCE REMOVED /CURRENTLY: DIALYSIS CATH RIGHT CHEST History of back surgery X2/FUSIONS History of cardiac cath 2016...PA..NO STENTS..TRIPLE BYPASS History of colonoscopy History of heart bypass surgery PA..TRIPLE BYPASS 2016 History of hysterectomy Hx of cholecystectomy Family History Other Coronary heart disease Family history non-contributory Social History Preferred Language: Hungarian Communication Ability: Effective Customer Support Consultant Required: No Beliefs That Will Affect Care: Advent Advent Beliefs: [employer] marital status: Current Living Situation: Family Current Living Situation Comment: lives with daughter and son-in-law current occupational status: retired current occupation: worked previously at [employer] Feels Safe at Home: Yes Smoking Status: Never smoker Second Hand Exposure: No ; Hx Alcohol Use: No Hx Substance Use: No Results & Data Vital Signs (Past 12 Hours) Vital Signs Temp Pulse Pulse Pulse Resp BP BP 01/28/19 22:54 67 12 107/47 L 01/28/19 21:48 97.5 F L 72 21 95/44 L 01/28/19 19:56 97.5 F L 64 23 90/46 L 01/28/19 15:33 98.2 F 76 21 100/42 L 01/28/19 15:22 207 H 01/28/19 15:04 97.7 F 84 84 16 106/44 L 01/28/19 14:41 82 12 106/65 01/28/19 14:36 81 12 101/55 L 01/28/19 14:35 81 12 101/55 L 01/28/19 14:30 85 15 115/54 L 01/28/19 14:25 81 12 101/55 L 01/28/19 14:23 79 12 100/51 L 01/28/19 14:15 98.1 F 86 20 110/47 L 01/28/19 13:46 98.4 F 81 96/36 L 01/28/19 13:00 78 109/54 L 01/28/19 12:40 77 89/46 L 01/28/19 12:20 78 92/41 L 01/28/19 12:00 76 76/24 L 01/28/19 11:40 70 98/42 L 01/28/19 11:20 71 73/44 L Pulse Ox 01/28/19 22:54 93 01/28/19 21:48 93 01/28/19 19:56 93 01/28/19 15:33 98 01/28/19 15:22 01/28/19 15:04 94 01/28/19 14:41 96 01/28/19 14:36 95 01/28/19 14:35 95 01/28/19 14:30 95 01/28/19 14:25 95 01/28/19 14:23 97 01/28/19 14:15 98 01/28/19 13:46 01/28/19 13:00 01/28/19 12:40 01/28/19 12:20 01/28/19 12:00 01/28/19 11:40 01/28/19 11:20 Resident Activity Tracking Resident Involvement: Resident Care Provided Care Provided: Adult Hospital Medicine
[2019-01-28] MEDS: HEPARIN SODIUM/DEXTROSE 25,000 UNITS/500 ML BAG IV SCH (23:29)
[2019-01-28 23:32] LABS: Basophils # (auto) 0.03 K/uL (0-0.2); Basophils % (auto) 0.2 %; Eosinophils # (auto) 0.07 K/uL (0-0.5); Eosinophils % (auto) 0.5 %; Hematocrit (blood only) 36.5 % (37-47); Hemoglobin 11.8 g/dL (12.0-16.0); Immature Granulocytes # (auto) 0.03 K/uL (0.00-0.02); Immature Granulocytes % (auto) 0.2 %; Lymphocytes # (auto) 0.99 K/uL (1.2-3.4); Lymphocytes % (auto) 7.5 %; Mean Corpuscular Hemoglobin 33.5 pg (25-34); Mean Corpuscular Volume 103.7 fL (80-100); Mean Platelet Volume 11.4 fL (7.4-10.4); Monocytes # (auto) 1.64 K/uL (0.11-0.59); Monocytes % (auto) 12.4 %; Neutrophils # (auto) 10.43 K/uL (1.4-6.5); Neutrophils % (auto) 79.2 %; Platelet Count 145 K/uL (130-400); RDW Coefficient of Variation 15.6 % (11.5-14.5); RDW Standard Deviation 58.6 fL (36.4-46.3); Red Blood Count 3.52 M/uL (4.2-5.4); White Blood Count 13.19 K/uL (4.8-10.8)
[2019-01-28 23:44] LABS: Mean Corpuscular Hgb Conc 32.3 g/dL (32-36)
[2019-01-28 23:56] LABS: iSTAT Allen Test Pass; iSTAT Arterial Blood Gas HCO3 23 meg/L (19-24); iSTAT Arterial Blood Gas pCO2 31 mmHg (35-46); iSTAT Arterial Blood Gas pH 7.48 (7.35-7.45); iSTAT Arterial Blood Gas pO2 141 mmHg (80-95); iSTAT Carbon Dioxide 24 mEq/l (24-31); iSTAT Site L Radial
[2019-01-29 00:01] LABS: Albumin Globulin Ratio 0.6 (0.9-2); Albumin Level 2.8 gm/dl (3.4-5.0); BUN Creatinine Ratio 4.8 (10-20); Bilirubin,Total 0.8 mg/dl (0.2-1); Calcium 9.7 mg/dl (8.5-10.1); Creatinine Clr Calc Pharmacy 10.8 ml/min; Est GFR (African American) 8.6; Est GFR (Non-African American) 7.4; Globulin 4.6 gm/dl (2.5-4.0); Potassium 4.7 mmol/L (3.5-5.1); Thyroid Stimulating Hormone 0.375 uIu/ml (0.300-4.500); Total Protein 7.4 gm/dl (6.4-8.2); Troponin I 7.91 ng/ml (0-0.045)
[2019-01-29] MEDS: HEPARIN SODIUM/DEXTROSE 25,000 UNITS/500 ML BAG IV SCH ×2 (00:15→15:51)
[2019-01-29 00:57] LABS: Partial Thromboplastin Time 27.6 Seconds (21.0-31.0)
[2019-01-29] MEDS: LEVOTHYROXINE SODIUM 100 MCG TABLET PO SCH (06:14)
[2019-01-29] MEDS ORDERED: SODIUM CHLORIDE 0.9% 10ML FLUSH IV ONE (07:03)
[2019-01-29] MEDS ORDERED: ROCURONIUM BROMIDE 10 MG/ML 10 ML VIAL IV ONE (07:03)
[2019-01-29] MEDS ORDERED: ETOMIDATE 2 MG/ML 20 ML VIAL IV ONE (07:03)
[2019-01-29] MEDS ORDERED: CALCIUM CHLORIDE 10% 10 ML SYR IV ONE (07:03)
[2019-01-29 07:28] LABS: Hematocrit (blood only) 36.7 % (37-47); Hemoglobin 11.8 g/dL (12.0-16.0); Mean Corpuscular Hemoglobin 33.5 pg (25-34); Mean Corpuscular Hgb Conc 32.2 g/dL (32-36); Mean Corpuscular Volume 104.3 fL (80-100); Mean Platelet Volume 11.8 fL (7.4-10.4); Platelet Count 142 K/uL (130-400); RDW Coefficient of Variation 15.7 % (11.5-14.5); RDW Standard Deviation 58.9 fL (36.4-46.3); Red Blood Count 3.52 M/uL (4.2-5.4); White Blood Count 11.77 K/uL (4.8-10.8)
[2019-01-29] MEDS: KETOCONAZOLE 2% CR 15 GM TUBE EXT SCH (07:58)
[2019-01-29] MEDS: CEROVITE ADV FORMULA TAB PO SCH (07:58)
[2019-01-29] MEDS: ASPIRIN 81 MG ECTAB PO SCH (07:58)
[2019-01-29] MEDS: CLOPIDOGREL BISULFATE 75 MG TAB PO SCH (07:58)
[2019-01-29 08:01] LABS: BUN Creatinine Ratio 5.5 (10-20); Calcium 9.6 mg/dl (8.5-10.1); Creatinine Clr Calc Pharmacy 9.8 ml/min; Est GFR (African American) 7.4; Est GFR (Non-African American) 6.4; Potassium 4.9 mmol/L (3.5-5.1)
[2019-01-29] MEDS: CALCIUM ACETATE 667 MG CAP PO SCH ×3 (08:03→18:17)
--- NOTE | 2019-01-29 10:15 | Nephrology Progress Note ---
Date of Service January 29, 2019 Assessment & Plan (1) ESRD (end stage renal disease) on dialysis: -- HD tomorrow via AVG -- LE CTA 01/27 revealed small hematoma from AVG access attempt. No obvious abscess (2) Elevated troponin I level: -- Troponin again trending up. Await Cardiology input (3) Fever: -- Blood cultures have grown out gamma hemolytic streptococci. Vanco 2 g IV x 1 administered 01/26/19. Patient has now defervesced. Recommend monitoring Vanco level. Redose once trough < 20 mcg/mL. Patient will require at least 14 days therapy -- Recommend consultation w/ ID to outline treatment plan (4) Lethargy: -- Case discussed w/ primary service. Neurology has been consulted. Patient is scheduled for head CT. Await results (5) DM type 2 (diabetes mellitus, type 2): Subjective Ms. Monae was dialyzed yesterday. She was relatively hypotensive w/ SBP 80 mmHg throughout the treatment. Only 800 cc UF obtained. Following HD IJ THC was removed. Patient was bradycardic overnight. This morning she has pacer pads in place and appears lethargic. Review of Systems Constitutional: + fever and + weakness Eyes: no worsening vision and no problem reported Ear, Nose, Mouth, Throat: no problem reported Respiratory: no cough and no dyspnea Cardiovascular: + chest pain (L shoulder discomfort w/ activity); no palpitations and no edema Gastrointestinal: no abdominal pain, no nausea, no vomiting and no diarrhea/loose stools Genitourinary: no dysuria and no hematuria Musculoskeletal: no back pain Integumentary: no rash Neurologic: no falls, no dizziness and no confusion Physical Exam Constitutional: + overweight Eyes: PERRL, conjunctivae normal, anicteric sclerae ENMT: external ear and nose normal, oropharynx normal Neck: trachea midline, no thyromegaly Respiratory: normal respiratory effort, lungs clear to auscultation Cardiovascular: RRR, no murmur, no edema Extremities: + AV fistula (R femoral AVG + bruit, no erythema or fluctuance) Gastrointestinal (Abdomen): normal bowel sounds, soft, nontender, no hepatosplenomegaly Musculoskeletal: Extremities: no cyanosis Skin: no rashes, warm and dry Neurologic: Lethargic but will respond to verbal stimuli. Oriented to self, place and month Results & Data Vital Signs (Past 12 Hours) Vital Signs Temp Pulse Pulse Pulse Resp BP Pulse Ox 01/29/19 08:00 36.8 C 54 L 72 16 105/37 L 93 01/29/19 05:14 36.8 C 73 19 111/44 L 92 01/29/19 00:45 51 L 106/43 L 95 01/28/19 23:40 36.7 C 78 18 108/36 L 92 01/28/19 22:54 67 12 107/47 L 93 PG Care Time/CCT Total # of Minutes Spent Total Time Spent with Patient: Total time spent is greater than 50% in coordination of care (as documented) at patient's floor/unit and/or counseling patient:
[2019-01-29] MEDS: TRAMADOL HCL 50 MG TABLET PO SCH (11:19)
[2019-01-29] MEDS: MoRPHine SULFATE 4 MG/ML 1 ML CARP\\VIAL IV PRN (11:20)
[2019-01-29 11:36] LABS: Partial Thromboplastin Ratio 1.4; Partial Thromboplastin Time 36.6 Seconds (21.0-31.0)
--- NOTE | 2019-01-29 11:59 | Magnetic Resonance Report ---
MRI OF THE BRAIN WITHOUT CONTRAST CLINICAL HISTORY: possible stroke COMPARISON STUDY: Noncontrast head CT dated 01/28/2019 FINDINGS: Sagittal T1, axial diffusion, proton density and T2 weighted axial, and axial T1-weighted images were acquired. No intra or extra-axial mass lesions are visualized There are multifocal bihemispheric punctate foci of restricted water diffusion with involvement of megan th frontal vertices, and the right parietal vertex. There are also foci of restricted water diffusion within both occipital lobes, as well as within the left cerebellar hemisphere. There is no evidence of ventricular dilatation. The study was unable to be completed for patient safety concerns, and coronal FLAIR images were not a cquired. There are no abnormal flow voids. IMPRESSION: 1. Tiny bilateral hemispheric foci of restricted water diffusion consistent with acute/subacute infar cts. This involves both the anterior and posterior vascular territories. There is also a focus of res tricted water diffusion within the left cerebellar hemisphere consistent with acute/subacute infarct. The distribution of findings raises the possibility of an embolic phenomena. Electronically signed by: Samy Astudillo M.D. 01/29/2019 11:57 AM
[2019-01-29 12:42] LABS: Partial Thromboplastin Ratio 1.3; Partial Thromboplastin Time 34.7 Seconds (21.0-31.0)
[2019-01-29] MEDS: cefTRIAXone SODIUM 2,000 MG in DEXTROSE 5% 50 ML IV SCH (12:44)
[2019-01-29] MEDS ORDERED: Nursing to Pharmacy Communication ONE (12:47)
[2019-01-29] MEDS ORDERED: HEPARIN IV BOLUS 4,500 UNITS in SYRINGE 0 ML IV SCH (13:15)
--- NOTE | 2019-01-29 14:18 | Hospitalist Progress Note ---
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 Wright, this often causes small hemorrhagic strokes overall guarded prognosis, will remain in the ICU for time being (2) Bradycardia: went into junctional bradycardia, at times with some AV dissociation received Epinephrine on 01/29 for code blue no obvious signs of abscess in aortic or mitral valve HR improved for time being, not on any rate limiting medications cardiology following (3) Embolic stroke: MRI brain with multiple, bilateral very small areas of stroke discussed with Dr. Wright, this is common finding on MRI after lines are removed had tunneled HD catheter removed 01/28 and altered mental status occurred on 01/28 in the middle of the night patient already anticoagulated on heparin but that had been for possible NSTEMI continue aspirin, Plavix, heparin neurology following (4) Bacteremia associated with intravascular line: blood cultures growing streptococcus bovis, initially on Vanco, changed to Rocephin likely source is the right tunneled HD catheter which was removed 01/28 and cultured line culture already growing gram positive cocci repeat blood cultures drawn 01/29 graft in right lower leg should work well, it works as outpatient continue Rocephin, WBC down to 11k, no fever no vegetations on initial echo repeat echo 01/29 with possible hazy vegetation on mitral valve (5) Non-ST elevated myocardial infarction: no longer has the left shoulder pain, never had chest pain/pressure troponin peaked at 7, down to 6 01/27 echo without any new wall motion changes initially treated with low-dose heparin drip for 48 hours, stopped morning of 01/28 Continue aspirin/Plavix heparin drip resumed overnight on 01/28 due to altered mental status and elevated troponin Dr. Chris Singh following per cardiology, patient could only have a heart cath at tertiary center when they could gain access through chest wall currently her more pressing issue is endocarditis and embolic stroke no plans for cardiac cath (6) ESRD (end stage renal disease) on dialysis: tolerated HD well 01/26 and 01/28 right tunneled HD catheter removed 01/[address] Wang plan to use right lower extremity graft for access would tentatively plan for HD on 01/30, Dr. Adamson following (7) DM type 2 (diabetes mellitus, type 2): Diet-controlled, monitor for hypoglycemia (8) Hyperlipidemia: Continue Lipitor (9) Hypothyroid: Continue Synthroid Subjective patient deteriorated last night when I last saw her in the evening after HD and going to the OR to get her line removed, she was oriented x 3 she could tell me the events from her stay and she was visiting with her daughter last night she developed acute mental status changes, not responding, not moving left side of her body CT head negative for stroke she started to develop junctional bradycardia, rates in 30-40's, AV dissociation at times when I saw her this morning she was awake, oriented to person and knew the month but she could not tell me anything about why she was here in hospital gazed was fixed to the right, she moved her left arm to scratch her head earlier in exam but when I said "move your left arm" she did not do anything reviewed labs, WBC 11k, Hb 11, BMP with elevated Cr as expected but stable electrolytes ordered stat MRI brain that showed multiple small infarcts in the anterior and posterior circulation bilaterally blood cultures were positive for Strep bovis most logical diagnosis at this point was endocarditis with septic emboli causing strokes possible abscess in the heart that would cause the AV block discussed with Dr. Singh, he reviewed the original echo and did not see any vegetations suggested getting a repeat echo now, would be too high risk for SUZANNA discussed with Dr. Wright, she agreed that SUZANNA might be too much of a risk and that if she would have large vegetation or abscess she would be a terrible surgical candidate for any type of open heart surgery she recommend Rocephin for time being discussed with Dr. Nava, due to declining status, bradycardia and hypotension and potential to get worse, will move to the ICU prior to patient moving to ICU a duane roman was called as the patient went unresponsive with weak pulse and HR in the 30s I arrived shortly after the duane roman was called, patient was exhibiting shallow breaths, oxygen saturations dropping ordered Epinephrine 1mg IV stat as the HR and blood pressure both low, concerned that with possible AV block she would not respond to Atropine HR and BP started to come up while she was bagged with FiO2 100% she went into ventricular tachycardia, quickly shocked and sinus rhythm returned with a pulse, CPR was stopped initially there were plans to intubate patient but she became more alert and breathing better, blood pressure and HR improved after Epinephrine she was transferred to the ICU updated the daughter several times by telephone as she was making the trip to the hospital she confirmed that the patient should be a full code discussed the gravity of the diagnosis of endocarditis, only option for treatment will be antibiotics Review of Systems Review of Systems: Unobtainable due to cognitive status Physical Exam Constitutional: WD/WN, vitals as above + overweight Eyes: PERRL, conjunctivae normal, anicteric sclerae ENMT: external ear and nose normal, oropharynx normal Neck: trachea midline, no thyromegaly Respiratory: normal respiratory effort, lungs clear to auscultation Cardiovascular: Rate/Rhythm: + bradycardic and + irregularly irregular (junctional) Heart Sounds: normal S1 and normal S2; no murmur Vessels: no JVD Extremities: normal capillary refill and + AV fistula; no edema Gastrointestinal (Abdomen): normal bowel sounds, soft, nontender, no hepatosplenomegaly Musculoskeletal: Head/Neck/Chest: normocephalic and head atraumatic Extremities: extremities normal to inspection Skin: no rashes, warm and dry (right tunneled HD catheter, skin without erythema, some debris on line) Neurologic: patellar DTR's 2+ bilat, sensation intact and PERRL, EOMI, accommodation nl, no face palsy, no dysarthria Psychiatric: A+Ox3, euthymic affect Lymphatic: no cervical or axillary lymphadenopathy Results & Data Vital Signs (Past 12 Hours) Vital Signs Temp Pulse Pulse Pulse Resp BP BP 01/29/19 13:58 72 19 130/25 L 01/29/19 13:05 42 L 15 96/27 L 01/29/19 11:56 98/30 L 01/29/19 11:50 36.8 C 76 20 108/32 L 01/29/19 08:00 36.8 C 54 L 72 16 105/37 L 01/29/19 05:14 36.8 C 73 19 111/44 L Pulse Ox 01/29/19 13:58 93 01/29/19 13:05 96 01/29/19 11:56 01/29/19 11:50 94 01/29/19 08:00 93 01/29/19 05:14 92 Laboratory Results Laboratory Results - last 24 hr 01/28/19 01/28/19 01/28/19 22:23 22:41 23:23 WBC 13.19 H RBC 3.52 L Hgb 11.8 L Hct 36.5 L MCV 103.7 H MCH 33.5 MCHC 32.3 RDW Std Deviation 58.6 H RDW Coeff of Kali 15.6 H Plt Count 145 MPV 11.4 H Immature Gran % (Auto) 0.2 Neut % (Auto) 79.2 Lymph % (Auto) 7.5 [place] % (Auto) 12.4 Eos % (Auto) 0.5 Baso % (Auto) 0.2 Immature Gran # (Auto) 0.03 H Neut # (Auto) 10.43 H Lymph # (Auto) 0.99 L Wy[place] # (Auto) 1.64 H Eos # (Auto) 0.07 Baso # (Auto) 0.03 APTT 27.6 PTT Ratio 1.0 Sample Site POC pH POC pCO2 POC pO2 POC HCO3 POC Total CO2 POC Base Excess POC ABG O2 Sat Jed Test O2 Delivery Device Sodium Potassium Chloride Carbon Dioxide Anion Gap BUN Creatinine Est Cr Clr Drug Dosing Est GFR ( Amer) Est GFR (Non-Af Amer) BUN/Creatinine Ratio Glucose POC Glucose 124 H Calcium Total Bilirubin AST ALT Alkaline Phosphatase Ammonia Troponin I Total Protein Albumin Globulin Albumin/Globulin Ratio TSH Random Vancomycin 01/28/19 01/28/19 01/28/19 23:23 23:23 23:44 WBC RBC Hgb Hct MCV MCH MCHC RDW Std Deviation RDW Coeff of Kali Plt Count MPV Immature Gran % (Auto) Neut % (Auto) Lymph % (Auto) [place] % (Auto) Eos % (Auto) Baso % (Auto) Immature Gran # (Auto) Neut # (Auto) Lymph # (Auto) Wy[place] # (Auto) Eos # (Auto) Baso # (Auto) APTT PTT Ratio Sample Site L Radial POC pH 7.48 H POC pCO2 31 L POC pO2 141 H POC HCO3 23 POC Total CO2 24 POC Base Excess 0.0 POC ABG O2 Sat 99.0 H Jed Test Pass O2 Delivery Device Cannula Sodium 133 L Potassium 4.7 Chloride 98 Carbon Dioxide 26 Anion Gap 9.0 BUN 25 H Creatinine 5.21 H* D Est Cr Clr Drug Dosing 10.8 Est GFR ( Amer) 8.6 Est GFR (Non-Af Amer) 7.4 BUN/Creatinine Ratio 4.8 L Glucose 115 H POC Glucose Calcium 9.7 Total Bilirubin 0.8 AST 65 H ALT 34 Alkaline Phosphatase 80 Ammonia 25.0 Troponin I 7.910 H* Total Protein 7.4 Albumin 2.8 L Globulin 4.6 H Albumin/Globulin Ratio 0.6 L TSH 0.375 Random Vancomycin 01/29/19 01/29/19 01/29/19 06:39 06:39 06:39 WBC 11.77 H RBC 3.52 L Hgb 11.8 L Hct 36.7 L MCV 104.3 H MCH 33.5 MCHC 32.2 RDW Std Deviation 58.9 H RDW Coeff of Kali 15.7 H Plt Count 142 MPV 11.8 H Immature Gran % (Auto) Neut % (Auto) Lymph % (Auto) [place] % (Auto) Eos % (Auto) Baso % (Auto) Immature Gran # (Auto) Neut # (Auto) Lymph # (Auto) Wy[place] # (Auto) Eos # (Auto) Baso # (Auto) APTT PTT Ratio Sample Site POC pH POC pCO2 POC pO2 POC HCO3 POC Total CO2 POC Base Excess POC ABG O2 Sat Jed Test O2 Delivery Device Sodium 133 L Potassium 4.9 Chloride 98 Carbon Dioxide 24 Anion Gap 10.0 BUN 32 H Creatinine 5.88 H* D Est Cr Clr Drug Dosing 9.8 Est GFR ( Amer) 7.4 Est GFR (Non-Af Amer) 6.4 BUN/Creatinine Ratio 5.5 L Glucose 116 H POC Glucose Calcium 9.6 Total Bilirubin AST ALT Alkaline Phosphatase Ammonia Troponin I Total Protein Albumin Globulin Albumin/Globulin Ratio TSH Random Vancomycin 20.7 01/29/19 01/29/19 07:08 12:03 WBC RBC Hgb Hct MCV MCH MCHC RDW Std Deviation RDW Coeff of Kali Plt Count MPV Immature Gran % (Auto) Neut % (Auto) Lymph % (Auto) [place] % (Auto) Eos % (Auto) Baso % (Auto) Immature Gran # (Auto) Neut # (Auto) Lymph # (Auto) [place] # (Auto) Eos # (Auto) Baso # (Auto) APTT 36.6 H 34.7 H PTT Ratio 1.4 1.3 Sample Site POC pH POC pCO2 POC pO2 POC HCO3 POC Total CO2 POC Base Excess POC ABG O2 Sat Jed Test O2 Delivery Device Sodium Potassium Chloride Carbon Dioxide Anion Gap BUN Creatinine Est Cr Clr Drug Dosing Est GFR ( Amer) Est GFR (Non-Af Amer) BUN/Creatinine Ratio Glucose POC Glucose Calcium Total Bilirubin AST ALT Alkaline Phosphatase Ammonia Troponin I Total Protein Albumin Globulin Albumin/Globulin Ratio TSH Random Vancomycin Diagnostic Findings MRI brain IMPRESSION: 1. Tiny bilateral hemispheric foci of restricted water diffusion consistent with acute/subacute infarcts. This involves both the anterior and posterior vascular territories. There is also a focus of restricted water diffusion within the left cerebellar hemisphere consistent with acute/subacute infarct. The distribution of findings raises the possibility of an embolic phenomena. Medications Administered Current Inpatient Medications Aspirin (Ecotrin Ectab) 81 mg PO DAILY STEPHANI Stop: 02/25/19 08:59 Last Admin: 01/29/19 07:58 Dose: 81 mg Documented by: Atorvastatin Calcium (Lipitor) 40 mg PO HS STEPHANI Stop: 02/25/19 20:59 Last Admin: 01/28/19 20:21 Dose: 40 mg Documented by: Calcium Acetate (Phoslo) 1,334 mg PO TIDM STEPHANI Stop: 02/25/19 07:59 Last Admin: 01/29/19 11:52 Dose: Not Given Documented by: Calcium Acetate (Phoslo) 667 mg PO TIDM PRN PRN Reason: .WITH SNACKS Stop: 02/25/19 07:59 Clopidogrel Bisulfate (Plavix) 75 mg PO DAILY STEPHANI Stop: 02/25/19 08:59 Last Admin: 01/29/19 07:58 Dose: 75 mg Documented by: Cyclobenzaprine HCl (Flexeril) 5 mg PO BID PRN PRN Reason: MUSCLE SPASMS Stop: 02/24/19 21:39 Last Admin: 01/28/19 12:44 Dose: 5 mg Documented by: Dextrose (Dextrose 50%) 25 - 50 ml IV UD PRN; Protocol PRN Reason: Hypoglycemia Protocol Stop: 02/24/19 21:39 Famotidine (Pepcid) 20 mg PO QAM PRN PRN Reason: acid reflex Stop: 02/24/19 21:39 Last Admin: 01/26/19 09:44 Dose: 20 mg Documented by: Glucagon (Glucagen) 1 mg SQ UD PRN; Protocol PRN Reason: Hypoglycemia Protocol Stop: 02/24/19 21:39 Glucose (Dex4 Glucose) 4 - 8 tabs PO UD PRN; Protocol PRN Reason: Hypoglycemia Protocol Stop: 02/24/19 21:39 Glucose (Glucose 40%) 15 - 30 gm PO UD PRN; Protocol PRN Reason: Hypoglycemia Protocol Stop: 02/24/19 21:39 Heparin Sodium/Dextrose (Heparin Sodium/Dextrose) 25,000 units in 500 mls @ 21 mls/hr IV .[id number] STEPHANI; Protocol Stop: 02/27/19 23:14 Last Titration: 01/29/19 12:47 Dose: 1,050 units/hr, 21 mls/hr Documented by: Sodium Chloride (Nss 1000ml) 1,000 mls @ 0 mls/hr IV .Q0M PRN PRN Reason: For Hemodialysis Use ONLY Stop: 01/30/19 12:59 Ceftriaxone Sodium 2,000 mg/ (Dextrose) 70 mls @ 100 mls/hr IV DAILY [facility]; Protocol Stop: 02/12/19 12:29 Last Infusion: 01/29/19 13:38 Dose: Infused Documented by: Ioversol (Optiray 320 125ml) 119 ml IV ONCE PRN PRN Reason: Interaction Checking Stop: 01/31/19 10:47 Last Admin: 01/27/19 10:49 Dose: 119 ml Documented by: Ketoconazole (Nizoral 2%) 1 appln EXT DAILY [facility] Stop: 02/05/19 08:59 Last Admin: 01/29/19 07:58 Dose: Not Given Documented by: Levothyroxine Sodium (Synthroid) 100 mcg PO SUTUWEFRSA [facility] Stop: 02/25/19 06:29 Last Admin: 01/29/19 06:14 Dose: 100 mcg Documented by: Levothyroxine Sodium (Synthroid) 150 mcg PO MoTh@0630 [facility] Stop: 02/27/19 06:29 Last Admin: 01/28/19 06:00 Dose: 150 mcg Documented by: Lorazepam (Ativan) 1 mg PO QPM PRN PRN Reason: Anxiety Stop: 02/24/19 23:18 Last Admin: 01/27/19 10:32 Dose: 1 mg Documented by: Miscellaneous (Carbohydrates For Hypoglycemia) 15 - 30 gm PO UD PRN PRN Reason: Hypoglycemia Protocol Stop: 02/24/19 21:39 Miscellaneous (No Heparin In Dialysis) 1 ea N/A ONE ONE Stop: 01/30/19 07:01 Morphine Sulfate (Morphine Sulfate) 2 mg IV Q4H PRN PRN Reason: Pain Stop: 02/10/19 12:19 Last Admin: 01/28/19 17:31 Dose: 2 mg Documented by: Morphine Sulfate (Morphine Sulfate) 4 mg IV Q4H PRN PRN Reason: Severe Pain Stop: 02/10/19 12:19 Last Admin: 01/29/19 11:20 Dose: 4 mg Documented by: Multivitamins/Minerals (Multivitamin W/ Minerals Tab) 1 tab PO DAILY STEPHANI Stop: 02/25/19 08:59 Last Admin: 01/29/19 07:58 Dose: Not Given Documented by: Nitroglycerin (Nitrostat) 0.4 mg SL UD PRN PRN Reason: Chest Pain Stop: 02/24/19 21:39 Ondansetron HCl (Zofran) 4 mg IV Q4H PRN PRN Reason: Nausea Stop: 02/26/19 12:19 Last Admin: 01/27/19 12:35 Dose: 4 mg Documented by: Tramadol HCl (Ultram) 50 mg PO Q12 [facility] Stop: 02/25/19 08:59 Last Admin: 01/29/19 11:19 Dose: Not Given Documented by: Zolpidem Tartrate (Ambien) 5 mg PO HS PRN PRN Reason: Sleep Stop: 02/24/19 21:39 PG Care Time/CCT Total # of Minutes Spent Total Time Spent: 120 Total Time Spent with Patient: Total time spent is greater than 50% in coordination of care (as documented) at patient's floor/unit and/or counseling patient: Critical Care Time: Yes Total Critical Care Time: 35
[2019-01-29] MEDS ORDERED: RAPID SEQUENCE INDUCTION BAG ONE (15:07)
--- NOTE | 2019-01-29 15:45 | Critical Care Consultation ---
Date of Consultation January 29, 2019 Assessment & Plan (1) Admitted to intensive care unit: Reason Critically Ill: 78-year-old female here for suspected endocarditis, elevated troponins, bradycardia. 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 pattern consistent with embolic phenomena. steff given bacteremia and concern for endocarditis -on heparin drip Cardiac: Endocarditis Patient previously diagnosed with bacteremia (strep bovis) associated in interview circular line infection. Likely source was the right tunneled hemodialysis catheter which was removed on 01/28 and cultured. Culture is positive for gram-positive cocci speciation and sensitivities pending. Overnight patient had questionable stroke event, stroke alert was called she was evaluated by neurology who felt TPA was not appropriate. On review of MRI there is signs of acute small infarcts in the distribution pattern consistent with emboli. Repeat echo of the heart was suspicious for vegetation. Troponins con tinue to rise. Patient is intermittently bradycardic, intermittently febrile, had previous evidence of bacteremia. Taken together this clinical history and physical exam findings are consistent with endocarditis will initiate appropriate antibiotic therapy. -Ceftriaxone 2 g daily -Cardiology consulted appreciate recommendations -Hold off on SUZANNA as patient will likely not tolerate the procedure and it would not loom changer -Not a candidate for cath or surgery Bradycardia Patient has been intermittently bradycardic overnight between the 50s and 30s. Her troponins continue to rise. Cardiology is consulted and aware. Patient an episode prior to transfer to the ICU where she had bradycardia down to the 20s, a code jessie was called. Patient received 1 dose of epinephrine and subseq uently experienced an episode of v-tach. She received cardioversion and resume normal sinus rhythm. She was placed on BiPAP and subsequently improved currently she is in heart rates of approximately 75 bpm. 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 Ultimately resulting in her current presentation. On admission to the hospital she was diagnosed with an STEMI and placed on heparin. Continue heparin drip 25,000 units Respiratory: There was a consideration of intubating the patient during the code purple, she was able to maintain her airway. She was placed on BiPAP and remains on that in the ICU. Continue BiPAP GI: -N.p.o. while on BiPAP RENAL/LYTES: - No significant electrolyte derangement. -Replace lytes as needed. ESRD on HD Patient with a history of vasculopathy and chronic kidney disease. Receives hemodialysis Friday, , Friday. Creatinine persistently elevated 9.39 on admission. -Creatinine 5.88 today Daily BMP Replete electrolytes as indicated : - No concerns at this time. ENDO: Per report diet-controlled diabetes type 2 -No concerns at present HEME: - Stable H&H. -Will monitor for any drops in the setting of Heparin gtt ID: -See cardiac -Monitor fever curve. INTEGUMENTARY: -No concerns LINES/IV ACCESS: -PIVs intact. DVT PROPHYLAXIS: - Heparin gtt. Dispo: ICU Goals of care: The patient's daughter is coming from [place] to discuss goals of care. Per report from the primary team they have already explained to the family prognosis is poor. The family is moving towards comfort measures however still needs time to process Thank you for allowing us to be part of this patient's care. Please refer to Dr. Nava's documentation for any further recommendations. (2) Gram positive sepsis: (3) Elevated troponin I level: (4) ESRD (end stage renal disease) on dialysis: (5) CKD (chronic kidney disease) stage V requiring chronic dialysis: (6) CAD (coronary artery disease): (7) DM type 2 (diabetes mellitus, type 2): (8) HTN (hypertension): (9) Bladder cancer: Supervising Physician Co-Signing Physician Notes Dr. Mejia was the resident-physician during care of patient. I separately evaluated patient for lux portions of the history and the exam. I was present during the critical portion of medical decision making, and I discussed the case with the resident. I generally agree with the findings and plan except for any additions/exceptions noted. 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 She is persistently bacteremic and initial blood cultures grew strep bovis. We do not have any abdominal imaging as of yet. She has been having episodes of periodic bradycardia and confusion. Most recently, she had a brief period of loss of pulses and required 1 mg epinephrine with subsequent chest compressions and defibrillation for ventricular tachycardia that was subsequent to the epinephrine. I was present for a bit of this code and then we continued to bag care using bag mask ventilation. She began to arouse and respond a bit and had purposeful movements. We were about to intubate her but elected to place her on BiPAP given that she was able to protect her airway and oxygenation was good. We then performed a blood gas which demonstrated mild metabolic acidosis and good oxygenation. She was moved to the ICU on BiPAP and we have transitioned her to nasal cannula and she is saturating well and maintaining her airway without issue. Her hemodynamic parameters currently on all within normal limits. She had an echocardiogram today which was suspicious for possible mitral valve vegetation. I did speak with Dr. Mateo Jones and cardiology physician regarding her condition. She does have limited access for central lines and dialysis catheters. Her prognosis is quite poor. She has a very elevated troponin and cardiology is unable to intervene due to vascular access issues. Cardiology does not feel that she would be a good candidate for cardiothoracic surgery given her severe underlying comorbidities. I am concerned that she will continue to shower emboli to brain from this likely abscess. It is difficult to rule out whether she has a perivalvular abscess that may be causing her conduction issues of bradycardia. She is followed by infectious disease for Streptococcus bovis infection and they are recommending to continue ceftriaxone. She does have mild lactic acidosis from her recent code, but again she is hemodynamically stable. We did give her a gram of calcium chloride during code, but her potassium looks reasonable at this time. Continue heparin drip for her embolic strokes. Prognosis is very poor. I have personally spent 42 minutes of critical care time in the direct management of this patient. This is a life/limb threatening event. This i ncludes time spent evaluating patient, direct bedside care, chart review, placing orders, interpretation of diagnostic studies, discussion with consultants, patient, and/or family members regarding treatment decisions, as well as other required patient management activities. This time is exclusive of all separately billable procedures, and teaching time and separate from and in addition to any other critical care service time. History of Present Illness Attending Physician: Mateo Jones DO Allergies Allergy/AdvReac Type Severity Reaction Status Date / Time Penicillins Allergy Unknown SWELLING/HI Verified 01/25/19 19:50 VES oxycodone AdvReac Unknown nausea Verified 01/25/19 19:50 Home Medications Home Medications Medication Instructions Recorded Confirmed Type atorvastatin 40 mg PO HS 01/29/18 01/25/19 History calcium acetate 1,334 mg PO TIDM 01/29/18 01/25/19 History famotidine 20 mg PO QAM PRN 01/29/18 01/25/19 History lorazepam 1 mg PO QPM PRN 01/29/18 01/25/19 History aspirin 81 mg tablet,delayed 81 mg PO DAILY 03/03/18 01/25/19 History release tramadol 50 mg tablet 50 mg PO Q12 07/20/18 01/25/19 History ProRenal 1 tab PO DAILY 10/12/18 01/25/19 History calcium acetate 667 mg PO .WITH SNACKS 10/12/18 01/25/19 History cyclobenzaprine 5 mg PO BID PRN 10/12/18 01/25/19 History levothyroxine 100 mcg PO SUTUWEFRSA 10/12/18 01/25/19 History levothyroxine 150 mcg PO MOTH 10/12/18 01/25/19 History clopidogrel [Plavix] 75 mg PO DAILY 01/25/19 01/25/19 History ketoconazole 1 applic TOPICAL UD 01/25/19 01/25/19 History Patient History Medical History Aortic stenosis Bladder cancer REASON FOR UPCOMING SURGERY Coronary artery disease [place] 2015 WITH EMERGENT CABG X 3 AT [facility] [place]. RECENTLY TO [facility] ED WITH SHOULDER PAIN SIMILAR TO HER ANGINA. TROPONIN WAS ELEVATED, PT ADMITTED. NO EKGS CHANGES TO SUGGEST ACS. TROPONIN BUMP FELT 2/2 RENAL DISEASE. ECHO WHILE INPT 01/30 SHOWED EF 55-60%, MILD INF WALL HK. Diabetes DIET CONTROLLED ESRD (end stage renal disease) on dialysis DIALYSIS DAYS TUES, THUR & SAT - WEEK OF SURGERY SCHEDULED DAYS ARE MON, THUR AND SAT FAILED AV FISTULA LUE, ALSO FAILED AND NOW INFECTION L GROIN GRAFT; CURRENTLY USING R CHEST PERMACATH History of hypertension History of myocardial infarction 2016...CATH (NO STENTS) "99% BLOCKED" - TRIPLE BYPASS History of recent hospitalization 02/01/18 - PAIN IN SHOULDER/ED VISIT [facility]/HEART ATTACK RULED OUT- CAUSE POSSIBLE MUSCULAR PROBLEM WITH SHOULDER Lethargy Morbid obesity with BMI of 40.0-44.9, adult Spinal stenosis Wound infection LEFT GROIN WOUND VAC PLACED 03/18/18. Had a graft placed in L thigh/groin ~6wks ago, subsequent infection and graft removed 02/23/18, now has wound vac. Surgical History Hemodialysis access, AV graft CLOGGED AND SINCE REMOVED /CURRENTLY: DIALYSIS CATH RIGHT CHEST History of back surgery X2/FUSIONS History of cardiac cath 2016...[place]NO STENTS..TRIPLE BYPASS History of colonoscopy History of heart bypass surgery [place]..TRIPLE BYPASS 2016 History of hysterectomy Hx of cholecystectomy Family History Other Coronary heart disease Family history non-contributory Social History Preferred Language: Macedonian Communication Ability: Effective Hematologist Oncologist Required: No Beliefs That Will Affect Care: Lutheran Lutheran Beliefs: Confucianism marital status: Current Living Situation: Family Current Living Situation Comment: lives with daughter and son-in-law current occupational status: retired current occupation: worked previously at [employer] Feels Safe at Home: Yes Smoking Status: Never smoker Second Hand Exposure: No ; Hx Alcohol Use: No Hx Substance Use: No Results & Data Vital Signs (Past 12 Hours) Vital Signs Temp Pulse Pulse Pulse Resp BP BP 01/29/19 13:58 72 19 130/25 L 01/29/19 13:05 42 L 15 96/27 L 01/29/19 11:56 98/30 L 01/29/19 11:50 36.8 C 76 20 108/32 L 01/29/19 08:00 36.8 C 54 L 72 16 105/37 L 01/29/19 05:14 36.8 C 73 19 111/44 L Pulse Ox 01/29/19 13:58 93 01/29/19 13:05 96 01/29/19 11:56 01/29/19 11:50 94 01/29/19 08:00 93 01/29/19 05:14 92 Laboratory Results 01/29/19 01/29/19 01/29/19 Range/Units 12:03 07:08 06:39 WBC (4.8-10.8) K/uL RBC (4.2-5.4) M/uL Hgb (12.0-16.0) g/dL Hct (37-47) % MCV (80-100) fL MCH (25-34) pg MCHC (32-36) g/dL RDW Std Deviation (36.4-46.3) fL RDW Coeff of Kali (11.5-14.5) % Plt Count (130-400) K/uL MPV (7.4-10.4) fL Immature Gran % (Auto) % Neut % (Auto) % Lymph % (Auto) % [place] % (Auto) % Eos % (Auto) % Baso % (Auto) % Immature Gran # (Auto) (0.00-0.02) K/uL Neut # (Auto) (1.4-6.5) K/uL Lymph # (Auto) (1.2-3.4) K/uL [place] # (Auto) (0.11-0.59) K/uL Eos # (Auto) (0-0.5) K/uL Baso # (Auto) (0-0.2) K/uL APTT 34.7 H 36.6 H (21.0-31.0) Seconds PTT Ratio 1.3 1.4 Sample Site POC pH (7.35-7.45) POC pCO2 (35-46) mmHg POC pO2 (80-95) mmHg POC HCO3 (19-24) alelgra/L POC Total CO2 (24-31) mEq/l POC Base Excess (-9-1.8) allegra/L POC ABG O2 Sat (90-95) % Jed Test O2 Delivery Device Sodium (136-145) mmol/L Potassium (3.5-5.1) mmol/L Chloride (98-107) mmol/L Carbon Dioxide (21-32) mmol/L Anion Gap (3-11) BUN (7-18) mg/dl Creatinine (0.6-1.2) mg/dl Est Cr Clr Drug Dosing ml/min Est GFR ( Amer) Est GFR (Non-Af Amer) BUN/Creatinine Ratio (10-20) Glucose (70-99) mg/dl POC Glucose (70-99) Calcium (8.5-10.1) mg/dl Total Bilirubin (0.2-1) mg/dl AST (15-37) U/L ALT (12-78) U/L Alkaline Phosphatase (45-117) U/L Ammonia (11-32) umol/L Troponin I (0-0.045) ng/ml Total Protein (6.4-8.2) gm/dl Albumin (3.4-5.0) gm/dl Globulin (2.5-4.0) gm/dl Albumin/Globulin Ratio (0.9-2) TSH (0.300-4.500) uIu/ml Random Vancomycin 20.7 mcg/ml 01/29/19 01/29/19 01/28/19 Range/Units 06:39 06:39 23:44 WBC 11.77 H (4.8-10.8) K/uL RBC 3.52 L (4.2-5.4) M/uL Hgb 11.8 L (12.0-16.0) g/dL Hct 36.7 L (37-47) % MCV 104.3 H (80-100) fL MCH 33.5 (25-34) pg MCHC 32.2 (32-36) g/dL RDW Std Deviation 58.9 H (36.4-46.3) fL RDW Coeff of Kali 15.7 H (11.5-14.5) % Plt Count 142 (130-400) K/uL MPV 11.8 H (7.4-10.4) fL Immature Gran % (Auto) % Neut % (Auto) % Lymph % (Auto) % [place] % (Auto) % Eos % (Auto) % Baso % (Auto) % Immature Gran # (Auto) (0.00-0.02) K/uL Neut # (Auto) (1.4-6.5) K/uL Lymph # (Auto) (1.2-3.4) K/uL [place] # (Auto) (0.11-0.59) K/uL Eos # (Auto) (0-0.5) K/uL Baso # (Auto) (0-0.2) K/uL APTT (21.0-31.0) Seconds PTT Ratio Sample Site L Radial POC pH 7.48 H (7.35-7.45) POC pCO2 31 L (35-46) mmHg POC pO2 141 H (80-95) mmHg POC HCO3 23 (19-24) allegra/L POC Total CO2 24 (24-31) mEq/l POC Base Excess 0.0 (-9-1.8) allegra/L POC ABG O2 Sat 99.0 H (90-95) % Jed Test Pass O2 Delivery Device Cannula Sodium 133 L (136-145) mmol/L Potassium 4.9 (3.5-5.1) mmol/L Chloride 98 (98-107) mmol/L Carbon Dioxide 24 (21-32) mmol/L Anion Gap 10.0 (3-11) BUN 32 H (7-18) mg/dl Creatinine 5.88 H* D (0.6-1.2) mg/dl Est Cr Clr Drug Dosing 9.8 ml/min Est GFR ( Amer) 7.4 Est GFR (Non-Af Amer) 6.4 BUN/Creatinine Ratio 5.5 L (10-20) Glucose 116 H (70-99) mg/dl POC Glucose (70-99) Calcium 9.6 (8.5-10.1) mg/dl Total Bilirubin (0.2-1) mg/dl AST (15-37) U/L ALT (12-78) U/L Alkaline Phosphatase (45-117) U/L Ammonia (11-32) umol/L Troponin I (0-0.045) ng/ml Total Protein (6.4-8.2) gm/dl Albumin (3.4-5.0) gm/dl Globulin (2.5-4.0) gm/dl Albumin/Globulin Ratio (0.9-2) TSH (0.300-4.500) uIu/ml Random Vancomycin mcg/ml 01/28/19 01/28/19 01/28/19 Range/Units 23:23 23:23 23:23 WBC 13.19 H (4.8-10.8) K/uL RBC 3.52 L (4.2-5.4) M/uL Hgb 11.8 L (12.0-16.0) g/dL Hct 36.5 L (37-47) % MCV 103.7 H (80-100) fL MCH 33.5 (25-34) pg MCHC 32.3 (32-36) g/dL RDW Std Deviation 58.6 H (36.4-46.3) fL RDW Coeff of Kali 15.6 H (11.5-14.5) % Plt Count 145 (130-400) K/uL MPV 11.4 H (7.4-10.4) fL Immature Gran % (Auto) 0.2 % Neut % (Auto) 79.2 % Lymph % (Auto) 7.5 % [place] % (Auto) 12.4 % Eos % (Auto) 0.5 % Baso % (Auto) 0.2 % Immature Gran # (Auto) 0.03 H (0.00-0.02) K/uL Neut # (Auto) 10.43 H (1.4-6.5) K/uL Lymph # (Auto) 0.99 L (1.2-3.4) K/uL [place] # (Auto) 1.64 H (0.11-0.59) K/uL Eos # (Auto) 0.07 (0-0.5) K/uL Baso # (Auto) 0.03 (0-0.2) K/uL APTT (21.0-31.0) Seconds PTT Ratio Sample Site POC pH (7.35-7.45) POC pCO2 (35-46) mmHg POC pO2 (80-95) mmHg POC HCO3 (19-24) allegra/L POC Total CO2 (24-31) mEq/l POC Base Excess (-9-1.8) allegra/L POC ABG O2 Sat (90-95) % Jed Test O2 Delivery Device Sodium 133 L (136-145) mmol/L Potassium 4.7 (3.5-5.1) mmol/L Chloride 98 (98-107) mmol/L Carbon Dioxide 26 (21-32) mmol/L Anion Gap 9.0 (3-11) BUN 25 H (7-18) mg/dl Creatinine 5.21 H* D (0.6-1.2) mg/dl Est Cr Clr Drug Dosing 10.8 ml/min Est GFR ( Amer) 8.6 Est GFR (Non-Af Amer) 7.4 BUN/Creatinine Ratio 4.8 L (10-20) Glucose 115 H (70-99) mg/dl POC Glucose (70-99) Calcium 9.7 (8.5-10.1) mg/dl Total Bilirubin 0.8 (0.2-1) mg/dl AST 65 H (15-37) U/L ALT 34 (12-78) U/L Alkaline Phosphatase 80 (45-117) U/L Ammonia 25.0 (11-32) umol/L Troponin I 7.910 H* (0-0.045) ng/ml Total Protein 7.4 (6.4-8.2) gm/dl Albumin 2.8 L (3.4-5.0) gm/dl Globulin 4.6 H (2.5-4.0) gm/dl Albumin/Globulin Ratio 0.6 L (0.9-2) TSH 0.375 (0.300-4.500) uIu/ml Random Vancomycin mcg/ml 01/28/19 01/28/19 Range/Units 22:41 22:23 WBC (4.8-10.8) K/uL RBC (4.2-5.4) M/uL Hgb (12.0-16.0) g/dL Hct (37-47) % MCV (80-100) fL MCH (25-34) pg MCHC (32-36) g/dL RDW Std Deviation (36.4-46.3) fL RDW Coeff of Kali (11.5-14.5) % Plt Count (130-400) K/uL MPV (7.4-10.4) fL Immature Gran % (Auto) % Neut % (Auto) % Lymph % (Auto) % [place] % (Auto) % Eos % (Auto) % Baso % (Auto) % Immature Gran # (Auto) (0.00-0.02) K/uL Neut # (Auto) (1.4-6.5) K/uL Lymph # (Auto) (1.2-3.4) K/uL [place] # (Auto) (0.11-0.59) K/uL Eos # (Auto) (0-0.5) K/uL Baso # (Auto) (0-0.2) K/uL APTT 27.6 (21.0-31.0) Seconds PTT Ratio 1.0 Sample Site POC pH (7.35-7.45) POC pCO2 (35-46) mmHg POC pO2 (80-95) mmHg POC HCO3 (19-24) allegra/L POC Total CO2 (24-31) mEq/l POC Base Excess (-9-1.8) allegra/L POC ABG O2 Sat (90-95) % Jed Test O2 Delivery Device Sodium (136-145) mmol/L Potassium (3.5-5.1) mmol/L Chloride (98-107) mmol/L Carbon Dioxide (21-32) mmol/L Anion Gap (3-11) BUN (7-18) mg/dl Creatinine (0.6-1.2) mg/dl Est Cr Clr Drug Dosing ml/min Est GFR ( Amer) Est GFR (Non-Af Amer) BUN/Creatinine Ratio (10-20) Glucose (70-99) mg/dl POC Glucose 124 H (70-99) Calcium (8.5-10.1) mg/dl Total Bilirubin (0.2-1) mg/dl AST (15-37) U/L ALT (12-78) U/L Alkaline Phosphatase (45-117) U/L Ammonia (11-32) umol/L Troponin I (0-0.045) ng/ml Total Protein (6.4-8.2) gm/dl Albumin (3.4-5.0) gm/dl Globulin (2.5-4.0) gm/dl Albumin/Globulin Ratio (0.9-2) TSH (0.300-4.500) uIu/ml Random Vancomycin mcg/ml Medications Administered Current Inpatient Medications Aspirin (Ecotrin Ectab) 81 mg PO DAILY STEPHANI Stop: 02/25/19 08:59 Last Admin: 01/29/19 07:58 Dose: 81 mg Documented by: Atorvastatin Calcium (Lipitor) 40 mg PO HS STEPHANI Stop: 02/25/19 20:59 Last Admin: 01/28/19 20:21 Dose: 40 mg Documented by: Calcium Acetate (Phoslo) 1,334 mg PO TIDM STEPHANI Stop: 02/25/19 07:59 Last Admin: 01/29/19 11:52 Dose: Not Given Documented by: Calcium Acetate (Phoslo) 667 mg PO TIDM PRN PRN Reason: .WITH SNACKS Stop: 02/25/19 07:59 Clopidogrel Bisulfate (Plavix) 75 mg PO DAILY STEPHANI Stop: 02/25/19 08:59 Last Admin: 01/29/19 07:58 Dose: 75 mg Documented by: Cyclobenzaprine HCl (Flexeril) 5 mg PO BID PRN PRN Reason: MUSCLE SPASMS Stop: 02/24/19 21:39 Last Admin: 01/28/19 12:44 Dose: 5 mg Documented by: Dextrose (Dextrose 50%) 25 - 50 ml IV UD PRN; Protocol PRN Reason: Hypoglycemia Protocol Stop: 02/24/19 21:39 Famotidine (Pepcid) 20 mg PO QAM PRN PRN Reason: acid reflex Stop: 02/24/19 21:39 Last Admin: 01/26/19 09:44 Dose: 20 mg Documented by: Glucagon (Glucagen) 1 mg SQ UD PRN; Protocol PRN Reason: Hypoglycemia Protocol Stop: 02/24/19 21:39 Glucose (Dex4 Glucose) 4 - 8 tabs PO UD PRN; Protocol PRN Reason: Hypoglycemia Protocol Stop: 02/24/19 21:39 Glucose (Glucose 40%) 15 - 30 gm PO UD PRN; Protocol PRN Reason: Hypoglycemia Protocol Stop: 02/24/19 21:39 Heparin Sodium/Dextrose (Heparin Sodium/Dextrose) 25,000 units in 500 mls @ 21 mls/hr IV .[id number] STEPHANI; Protocol Stop: 02/27/19 23:14 Last Titration: 01/29/19 12:47 Dose: 1,050 units/hr, 21 mls/hr Documented by: Sodium Chloride (Nss 1000ml) 1,000 mls @ 0 mls/hr IV .Q0M PRN PRN Reason: For Hemodialysis Use ONLY Stop: 01/30/19 12:59 Ceftriaxone Sodium 2,000 mg/ (Dextrose) 70 mls @ 100 mls/hr IV DAILY [facility]; Protocol Stop: 02/12/19 12:29 Last Infusion: 01/29/19 13:38 Dose: Infused Documented by: Ioversol (Optiray 320 125ml) 119 ml IV ONCE PRN PRN Reason: Interaction Checking Stop: 01/31/19 10:47 Last Admin: 01/27/19 10:49 Dose: 119 ml Documented by: Ketoconazole (Nizoral 2%) 1 appln EXT DAILY [facility] Stop: 02/05/19 08:59 Last Admin: 01/29/19 07:58 Dose: Not Given Documented by: Levothyroxine Sodium (Synthroid) 100 mcg PO SUTUWEFRSA [facility] Stop: 02/25/19 06:29 Last Admin: 01/29/19 06:14 Dose: 100 mcg Documented by: Levothyroxine Sodium (Synthroid) 150 mcg PO [id number]@[id number] [facility] Stop: 02/27/19 06:29 Last Admin: 01/28/19 06:00 Dose: 150 mcg Documented by: Lorazepam (Ativan) 1 mg PO QPM PRN PRN Reason: Anxiety Stop: 02/24/19 23:18 Last Admin: 01/27/19 10:32 Dose: 1 mg Documented by: Miscellaneous (Carbohydrates For Hypoglycemia) 15 - 30 gm PO UD PRN PRN Reason: Hypoglycemia Protocol Stop: 02/24/19 21:39 Miscellaneous (No Heparin In Dialysis) 1 ea N/A ONE ONE Stop: 01/30/19 07:01 Morphine Sulfate (Morphine Sulfate) 2 mg IV Q4H PRN PRN Reason: Pain Stop: 02/10/19 12:19 Last Admin: 01/28/19 17:31 Dose: 2 mg Documented by: Morphine Sulfate (Morphine Sulfate) 4 mg IV Q4H PRN PRN Reason: Severe Pain Stop: 02/10/19 12:19 Last Admin: 01/29/19 11:20 Dose: 4 mg Documented by: Multivitamins/Minerals (Multivitamin W/ Minerals Tab) 1 tab PO DAILY [facility] Stop: 02/25/19 08:59 Last Admin: 01/29/19 07:58 Dose: Not Given Documented by: Nitroglycerin (Nitrostat) 0.4 mg SL UD PRN PRN Reason: Chest Pain Stop: 02/24/19 21:39 Ondansetron HCl (Zofran) 4 mg IV Q4H PRN PRN Reason: Nausea Stop: 02/26/19 12:19 Last Admin: 01/27/19 12:35 Dose: 4 mg Documented by: Tramadol HCl (Ultram) 50 mg PO Q12 STEPHANI Stop: 02/25/19 08:59 Last Admin: 01/29/19 11:19 Dose: Not Given Documented by: Zolpidem Tartrate (Ambien) 5 mg PO HS PRN PRN Reason: Sleep Stop: 02/24/19 21:39 Resident Activity Tracking Resident Involvement: Resident Care Provided Care Provided: Adult Hospital Medicine (ICU) (1) CAD (coronary artery disease) Associated angina: angina presence unspecified Coronary Disease-Associated Artery/Lesion type: unspecified vessel or lesion type [place] vs. transplanted heart: [place] heart Qualified Code(s): I25.10 - Atherosclerotic heart disease of [place] coronary artery without angina pectoris (2) HTN (hypertension) Hypertension type: unspecified Qualified Code(s): I10 - Essential (primary) hypertension
--- NOTE | 2019-01-29 16:21 | Cardiology Progress Note ---
Date of Service January 29, 2019 Assessment & Plan (1) Gram positive sepsis: Cultures growing strep bovis. Echocardiogram and evaluation suspicious for vegetation though not confirmed. Alternative sources of infection are also possible however recent embolic stroke remains concerning. Patient currently not stable respiratory status for sedation and transesophageal echocardiogram. Information not likely to change control specialist as patient will warrant a long-term anti-biotic therapy and surgical risk likely prohibitive Agree with current plan with supportive care anticoagulation, antibiotics. If patient should become intubated in course of therapy would proceed with transesophageal echocardiogram at that time. Patient's overall condition is extremely guarded (2) Elevated troponin I level: Etiology is multifactorial question acute infarct secondary to embolic phenomena versus secondary ischemia. Underlying coronary disease is notable for prior emergent coronary bypass grafting. Patient has significantly restricted arterial access which would limit diagnostic cardiac catheterization Ongoing medical management warranted with otherwise limited options or therapy (3) CAD (coronary artery disease): (4) Embolic stroke: Mental status changes with MRI abnormalities confirmed (5) Bradycardia: Patient with underlying conduction system disease on prior EKGs including interventricular conduction delay and intermittent first-degree AV block. Current bradycardia appears to be sinus mediated rather than AV block possibly secondary central causes. Patient not on any AV selina blocking drugs due to known conduction system disease Pacer pads in place Subjective Patient seen and examined on several occasions earlier today. Changes in mental status and functional capacity noted with transient episodes of bradycardia on 2 events. Troponins remain elevated Blood cultures growing positive for strep bovis. Echocardiogram repeated today demonstrates a possible shaggy area underneath the mitral valve could be consistent with vegetation although overshadowing from calcification could result in same findings. The aortic valve is heavily calcified as well and vegetation not excluded Physical Exam Constitutional: + altered mental status ENMT: external ear and nose normal, oropharynx normal Neck: + thick neck Respiratory: Auscultation: + diminished lung sounds Cardiovascular: Rate/Rhythm: regular rate and regular rhythm Heart Sounds: + murmur (Grade 2/6) Neurologic: + confused (Somnolent) Results & Data Vital Signs (Past 12 Hours) Vital Signs Temp Pulse Pulse Pulse Resp BP BP 01/29/19 15:30 23 01/29/19 13:58 72 19 130/25 L 01/29/19 13:40 01/29/19 13:05 42 L 15 96/27 L 01/29/19 11:56 98/30 L 01/29/19 11:50 36.8 C 76 20 108/32 L 01/29/19 08:00 36.8 C 54 L 72 16 105/37 L 01/29/19 05:14 36.8 C 73 19 111/44 L Pulse Ox 01/29/19 15:30 98 01/29/19 13:58 93 01/29/19 13:40 94 01/29/19 13:05 96 01/29/19 11:56 01/29/19 11:50 94 01/29/19 08:00 93 01/29/19 05:14 92 Laboratory Results Laboratory Results - last 24 hr 01/28/19 01/28/19 01/28/19 22:23 22:41 23:23 WBC 13.19 H RBC 3.52 L Hgb 11.8 L Hct 36.5 L MCV 103.7 H MCH 33.5 MCHC 32.3 RDW Std Deviation 58.6 H RDW Coeff of Kali 15.6 H Plt Count 145 MPV 11.4 H Immature Gran % (Auto) 0.2 Neut % (Auto) 79.2 Lymph % (Auto) 7.5 [place] % (Auto) 12.4 Eos % (Auto) 0.5 Baso % (Auto) 0.2 Immature Gran # (Auto) 0.03 H Neut # (Auto) 10.43 H Lymph # (Auto) 0.99 L [place] # (Auto) 1.64 H Eos # (Auto) 0.07 Baso # (Auto) 0.03 APTT 27.6 PTT Ratio 1.0 Sample Site POC pH POC pCO2 POC pO2 POC HCO3 POC Total CO2 POC Base Excess POC ABG O2 Sat Jed Test O2 Delivery Device Sodium Potassium Chloride Carbon Dioxide Anion Gap BUN Creatinine Est Cr Clr Drug Dosing Est GFR ( Amer) Est GFR (Non-Af Amer) BUN/Creatinine Ratio Glucose POC Glucose 124 H Calcium Total Bilirubin AST ALT Alkaline Phosphatase Ammonia Troponin I Total Protein Albumin Globulin Albumin/Globulin Ratio TSH Random Vancomycin 01/28/19 01/28/19 01/28/19 23:23 23:23 23:44 WBC RBC Hgb Hct MCV MCH MCHC RDW Std Deviation RDW Coeff of Kali Plt Count MPV Immature Gran % (Auto) Neut % (Auto) Lymph % (Auto) [place] % (Auto) Eos % (Auto) Baso % (Auto) Immature Gran # (Auto) Neut # (Auto) Lymph # (Auto) [place] # (Auto) Eos # (Auto) Baso # (Auto) APTT PTT Ratio Sample Site L Radial POC pH 7.48 H POC pCO2 31 L POC pO2 141 H POC HCO3 23 POC Total CO2 24 POC Base Excess 0.0 POC ABG O2 Sat 99.0 H Jed Test Pass O2 Delivery Device Cannula Sodium 133 L Potassium 4.7 Chloride 98 Carbon Dioxide 26 Anion Gap 9.0 BUN 25 H Creatinine 5.21 H* D Est Cr Clr Drug Dosing 10.8 Est GFR ( Amer) 8.6 Est GFR (Non-Af Amer) 7.4 BUN/Creatinine Ratio 4.8 L Glucose 115 H POC Glucose Calcium 9.7 Total Bilirubin 0.8 AST 65 H ALT 34 Alkaline Phosphatase 80 Ammonia 25.0 Troponin I 7.910 H* Total Protein 7.4 Albumin 2.8 L Globulin 4.6 H Albumin/Globulin Ratio 0.6 L TSH 0.375 Random Vancomycin 01/29/19 01/29/19 01/29/19 06:39 06:39 06:39 WBC 11.77 H RBC 3.52 L Hgb 11.8 L Hct 36.7 L MCV 104.3 H MCH 33.5 MCHC 32.2 RDW Std Deviation 58.9 H RDW Coeff of Kali 15.7 H Plt Count 142 MPV 11.8 H Immature Gran % (Auto) Neut % (Auto) Lymph % (Auto) [place] % (Auto) Eos % (Auto) Baso % (Auto) Immature Gran # (Auto) Neut # (Auto) Lymph # (Auto) [place] # (Auto) Eos # (Auto) Baso # (Auto) APTT PTT Ratio Sample Site POC pH POC pCO2 POC pO2 POC HCO3 POC Total CO2 POC Base Excess POC ABG O2 Sat Jed Test O2 Delivery Device Sodium 133 L Potassium 4.9 Chloride 98 Carbon Dioxide 24 Anion Gap 10.0 BUN 32 H Creatinine 5.88 H* D Est Cr Clr Drug Dosing 9.8 Est GFR ( Amer) 7.4 Est GFR (Non-Af Amer) 6.4 BUN/Creatinine Ratio 5.5 L Glucose 116 H POC Glucose Calcium 9.6 Total Bilirubin AST ALT Alkaline Phosphatase Ammonia Troponin I Total Protein Albumin Globulin Albumin/Globulin Ratio TSH Random Vancomycin 20.7 01/29/19 01/29/19 07:08 12:03 WBC RBC Hgb Hct MCV MCH MCHC RDW Std Deviation RDW Coeff of Kali Plt Count MPV Immature Gran % (Auto) Neut % (Auto) Lymph % (Auto) [place] % (Auto) Eos % (Auto) Baso % (Auto) Immature Gran # (Auto) Neut # (Auto) Lymph # (Auto) [place] # (Auto) Eos # (Auto) Baso # (Auto) APTT 36.6 H 34.7 H PTT Ratio 1.4 1.3 Sample Site POC pH POC pCO2 POC pO2 POC HCO3 POC Total CO2 POC Base Excess POC ABG O2 Sat Jed Test O2 Delivery Device Sodium Potassium Chloride Carbon Dioxide Anion Gap BUN Creatinine Est Cr Clr Drug Dosing Est GFR ( Amer) Est GFR (Non-Af Amer) BUN/Creatinine Ratio Glucose POC Glucose Calcium Total Bilirubin AST ALT Alkaline Phosphatase Ammonia Troponin I Total Protein Albumin Globulin Albumin/Globulin Ratio TSH Random Vancomycin (1) CAD (coronary artery disease) Associated angina: angina presence unspecified Coronary Disease-Associated Artery/Lesion type: unspecified vessel or lesion type [place] vs. transplanted heart: [place] heart Qualified Code(s): I25.10 - Atherosclerotic heart disease of [place] coronary artery without angina pectoris
--- NOTE | 2019-01-29 17:38 | Neurology Consultation ---
Date of Consultation January 29, 2019 Assessment & Plan (1) Bradycardia: (2) Embolic stroke: Agustina Monae is a 78 yo woman w/ PMH of CAD s/p CABG, ESRD on HD, DM, morbid obesity, HTN, aortic stenosis and h/o bladder cancer who p/t [facility] initially for left shoulder pain, found to have an NSTEMI and strep bovis bacteremia with suspected endocarditis, worsening AMS and periodic bradycardia overnight 01/28-01/29. Neurology consulted for worsening AMS and possible strokes. # Punctuate infarcts: cardioembolic vs watershed, cannot rule out mycotic aneurysms as the cause as no vessel imaging available. A1c 4.4, LDL 41. - continue heparin gtt at this time pending discussion with cardiology and CT surgery going forwards - maintain MAP 65 - if family decides full measures, would obtain CTA head to better evaluate for mycotic aneurysms and treat suspected endocarditis as already doing (does not appear that she is a candidate for valve replacement given multiple comorbidities but will defer to cardiology for their input). - small infarcts do not explain mental status changes though # AMS: likely multifactorial in the setting of sepsis/endocarditis, recurrent bradycardia/hypoperfusion, uremia/metabolic abnormalities, possible terminal delirium and opiate administration - would avoid opiates, benzos, anticholinergics if family decides for full measures to prevent worsening delirium - treat above issues per primary - consider EEG if full code and no improvement after treatment of above issues Thank you for this interesting consult. We will sign off at this time. Please call or text with questions. (3) Lethargy: (4) Gram positive sepsis: (5) Bacteremia associated with intravascular line: (6) ST elevation: History of Present Illness Attending Physician: Mateo Jones, DO History of Present Illness Agustina Monae is a 78 yo woman w/ PMH of CAD s/p CABG, ESRD on HD, DM, morbid obesity, HTN, aortic stenosis and h/o bladder cancer who p/t [facility] initially for left shoulder pain, found to have an NSTEMI and strep bovis bacteremia with suspected endocarditis, worsening AMS and periodic bradycardia overnight 01/28- 01/29. Neurology consulted for worsening AMS and possible strokes. On review of records, a stroke code was called on 01/28 ~10pm when pt was noted to acutely become disoriented, not answer questions appropriately, not track and no response of pupils on exam. CTH showed no hemorrhage or new hypodensity. Telestroke neurologist consulted and thought symptoms were 2/2 chronic medical issues/encephalopathy. Not a TPA candidate, she was on aspirin/plavix from home medications. She was also noted to have bradycardia to the 30s around this time and EKG showed ST changes in leads I, III, V1, V2 and V3 with new second degree heart block. MRI brain obtained earlier today that showed several punctuate areas of infarction in bilateral frontal lobes and the left cerebellum. She continued to be confused throughout the day and never returned to her baseline from prior to the catheter removal on 01/28. In the afternoon of 01/29, she had a pulseless event the afternoon of 01/29 requiring 1mg epi, chest compressions and defibrillation for VTach with transfer to the ICU for further care. 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 She is already on ceftriaxone daily for this and had previously received vanc prior to speciation. Troponins have continued to rise and she is being followed by cardiology. She is currently on heparin gtt given c/f cardioembolic source of punctuate strokes. No vessel imaging obtained. Recent pertinent labs include A1c 4.4, LDL 41, B12 811, TSH WNL, homocysteine elevated to 28.4, WBC 11.77, Plts 142, Na 133, BUN 32, Cr 5.88, troponin 7.91. Allergies Allergy/AdvReac Type Severity Reaction Status Date / Time Penicillins Allergy Unknown SWELLING/HI Verified 01/25/19 19:50 VES oxycodone AdvReac Unknown nausea Verified 01/25/19 19:50 Home Medications Home Medications Medication Instructions Recorded Confirmed Type atorvastatin 40 mg PO HS 01/29/18 01/25/19 History calcium acetate 1,334 mg PO TIDM 01/29/18 01/25/19 History famotidine 20 mg PO QAM PRN 01/29/18 01/25/19 History lorazepam 1 mg PO QPM PRN 01/29/18 01/25/19 History aspirin 81 mg tablet,delayed 81 mg PO DAILY 03/03/18 01/25/19 History release tramadol 50 mg tablet 50 mg PO Q12 07/20/18 01/25/19 History ProRenal 1 tab PO DAILY 10/12/18 01/25/19 History calcium acetate 667 mg PO .WITH SNACKS 10/12/18 01/25/19 History cyclobenzaprine 5 mg PO BID PRN 10/12/18 01/25/19 History levothyroxine 100 mcg PO SUTUWEFRSA 10/12/18 01/25/19 History levothyroxine 150 mcg PO MOTH 10/12/18 01/25/19 History clopidogrel [Plavix] 75 mg PO DAILY 01/25/19 01/25/19 History ketoconazole 1 applic TOPICAL UD 01/25/19 01/25/19 History Patient History Medical History Aortic stenosis Bladder cancer REASON FOR UPCOMING SURGERY Coronary artery disease [place] [facility] [place] [facility] ED WITH SHOULDER PAIN SIMILAR TO HER ANGINA. TROPONIN WAS ELEVATED, PT ADMITTED. NO EKGS CHANGES TO SUGGEST ACS. TROPONIN BUMP FELT 2/2 RENAL DISEASE. ECHO WHILE INPT 01/30 SHOWED EF 55-60%, MILD INF WALL HK. Diabetes DIET CONTROLLED ESRD (end stage renal disease) on dialysis DIALYSIS DAYS , & FRI - WEEK OF SURGERY SCHEDULED DAYS ARE FRI, AND SAT FAILED AV FISTULA LUE, ALSO FAILED AND NOW INFECTION L GROIN GRAFT; CURRENTLY USING R CHEST PERMACATH History of hypertension History of myocardial infarction 2016...CATH (NO STENTS) "99% BLOCKED" - TRIPLE BYPASS History of recent hospitalization 02/01/18 - PAIN IN SHOULDER/ED VISIT [facility]/HEART ATTACK RULED OUT- CAUSE POSSIBLE MUSCULAR PROBLEM WITH SHOULDER Lethargy Morbid obesity with BMI of 40.0-44.9, adult Spinal stenosis Wound infection LEFT GROIN WOUND VAC PLACED 03/18/18. Had a graft placed in L thigh/groin ~6wks ago, subsequent infection and graft removed 02/23/18, now has wound vac. Surgical History Hemodialysis access, AV graft CLOGGED AND SINCE REMOVED /CURRENTLY: DIALYSIS CATH RIGHT CHEST History of back surgery X2/FUSIONS History of cardiac cath 2016...AL..NO STENTS..TRIPLE BYPASS History of colonoscopy History of heart bypass surgery AL..TRIPLE BYPASS 2016 History of hysterectomy Hx of cholecystectomy Family History Other Coronary heart disease Family history non-contributory Social History Preferred Language: Bel[place]ian Communication Ability: Effective Post Hole Digger Required: No Beliefs That Will Affect Care: Scientology Scientology Beliefs: Latter Day marital status: Current Living Situation: Family Current Living Situation Comment: lives with daughter and son-in-law current occupational status: retired current occupation: worked previously at [employer] Feels Safe at Home: Yes Smoking Status: Never smoker Second Hand Exposure: No ; Hx Alcohol Use: No Hx Substance Use: No Review of Systems Review of Systems: Unobtainable due to cognitive status Physical Exam Physical Exam: General Exam: GEN: mild distress with face mask, lying in bed. CV: RRR, trace peripheral edema PULM: Nonlabored respirations on 3L NC. Neuro Exam: MS: Awake and Alert. Oriented to person and month but not location. Speech fluent and appropriate without dysarthria or paraphasic errors. Able to follow commands but frequently refused verbally to do so, unable to test repetition due to pt participation. Unable to fully test cognition and memory given mental status changes and unwillingness to participate in exam. Inattentive. No clear neglect. CN: Blink to threat bilaterally though she reported she could not see anything. Unable to visualize fundi on fundoscopic exam as she kept closing her eyes. PERRLA OU. EOMI. Facial sensation intact to LT. Facial muscles full and symmetric. Hearing intact to conversation. Unable to assess uvula, tongue or quintin ulder shrug as patient refused to participate in exam (kept asking why she needed to do it). MOTOR: Normal bulk and tone. Moving LUE/LLE spontaneously/purposefully. No spontaneous movement of RUE/RLE noted. REFLEXES: Trace at biceps, triceps, brachioradialis, absent patella and absent Achilles bilaterally. Toes mute bilaterally. SENSORY: withdraws in LUE/LLE, no withdrawal noted in RUE/RLE to painful stimuli or vibration COORDINATION: No dysmetria on observed movements, would not follow commands for formal testing GAIT: deferred given physical status/post bradycardic arrest Results & Data Vital Signs (Past 12 Hours) Vital Signs Temp Pulse Pulse Pulse Resp BP BP 01/29/19 17:27 85 14 119/69 01/29/19 16:57 76 13 110/57 L 01/29/19 16:27 75 13 91/53 L 01/29/19 16:00 83 17 01/29/19 15:39 36.6 C 90 15 132/68 01/29/19 15:35 88 01/29/19 15:30 23 01/29/19 13:58 72 19 130/25 L 01/29/19 13:40 01/29/19 13:05 42 L 15 96/27 L 01/29/19 11:56 98/30 L 01/29/19 11:50 36.8 C 76 20 108/32 L 01/29/19 08:00 36.8 C 54 L 72 16 BP Pulse Ox 01/29/19 17:27 95 01/29/19 16:57 94 01/29/19 16:27 93 01/29/19 16:00 96 01/29/19 15:39 100 01/29/19 15:35 01/29/19 15:30 98 01/29/19 13:58 93 01/29/19 13:40 94 01/29/19 13:05 96 01/29/19 11:56 01/29/19 11:50 94 01/29/19 08:00 105/37 L 93 PG Care Time/CCT Total # of Minutes Spent Total Time Spent with Patient: Total time spent is greater than 50% in coordinat ion of care (as documented) at patient's floor/unit and/or counseling patient:
[2019-01-29 18:37] LABS: Partial Thromboplastin Ratio 1.9
[2019-01-29 19:31] LABS: Partial Thromboplastin Time 50.7 Seconds (21.0-31.0)
[2019-01-29] MEDS: ATORVASTATIN 40 MG TAB PO SCH (21:29)
[2019-01-29] MEDS ORDERED: DOPAMINE / D5W 400 MG/250 ML BAG IV PRN (22:16)
[2019-01-30] MEDS: LEVOTHYROXINE SODIUM 100 MCG TABLET PO SCH (05:35)
[2019-01-30 05:57] LABS: Hematocrit (blood only) 35.5 % (37-47); Hemoglobin 11.3 g/dL (12.0-16.0); Mean Corpuscular Hemoglobin 32.5 pg (25-34); Mean Corpuscular Hgb Conc 31.8 g/dL (32-36); Mean Platelet Volume 11.7 fL (7.4-10.4); Platelet Count 185 K/uL (130-400); RDW Coefficient of Variation 15.9 % (11.5-14.5); RDW Standard Deviation 58.5 fL (36.4-46.3); Red Blood Count 3.48 M/uL (4.2-5.4); White Blood Count 14.54 K/uL (4.8-10.8)
[2019-01-30 05:59] LABS: Base Excess ABG -4.3 mEq/L (-9-1.8); HCO3 ABG 22 mmol/L (19-24); PCO2 ABG 48 mmHg (35-46); PO2 ABG 29 mm/Hg (80-95); pH ABG 7.29 (7.35-7.45)
[2019-01-30 06:00] LABS: Oxygen Saturation ABG < 60.0 % (90-95)
[2019-01-30 06:30] LABS: Albumin Level 2.6 gm/dl (3.4-5.0); Bilirubin Direct 0.2 mg/dl (0-0.2); Bilirubin,Total 1.2 mg/dl (0.2-1); Magnesium 2.6 mg/dl (1.8-2.4); Phosphorus 8.4 mg/dl (2.5-4.9); Total Protein 7.3 gm/dl (6.4-8.2); Troponin I 5.83 ng/ml (0-0.045)
[2019-01-30 06:37] LABS: Blood Urea Nitrogen 42 mg/dl (7-18); Calcium 9.3 mg/dl (8.5-10.1); Carbon Dioxide 24 mmol/L (21-32); Chloride 90 mmol/L (98-107); Est GFR (African American) 5.8; Glucose 354 mg/dl (70-99); Potassium 4.7 mmol/L (3.5-5.1); Sodium 128 mmol/L (136-145)
[2019-01-30] MEDS ORDERED: SODIUM CHLORIDE 0.9% 1000ML 1,000 ML IV PRN (07:00)
--- NOTE | 2019-01-30 07:20 | Critical Care Progress Note ---
Date of Service January 30, 2019 Assessment & Plan (1) Admitted to intensive care unit: Reason Critically Ill: 78-year-old female here for suspected endocarditis, elevated troponins, bradycardia. 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 pattern consistent with embolic phenomena. steff given bacteremia and concern for endocarditis -d/c heparin drip Cardiac: Endocarditis Patient previously diagnosed with bacteremia (strep bovis) associated in interview circular line infection. Likely source was the right tunneled hemodialysis catheter which was removed on 01/28 and cultured. Culture is positive for gram-positive cocci speciation and sensitivities pending. Overnight patient had questionable stroke event, stroke alert was called she was evaluated by neurology who felt TPA was not appropriate. On review of MRI there is signs of acute small infarcts in the distribution pattern consistent with emboli. Repeat echo of the heart was suspicious for vegetation. Troponins continue to rise. Patient is intermittently bradycardic, intermittently febrile, had previous evidence of bacteremia. Taken together this clinical history and physical exam findings are consistent with endocarditis will initiate appropriate antibiotic therapy. -d/c Ceftriaxone 2 g daily pt is comfort care Bradycardia Patient has been intermittently bradycardic overnight between the 50s and 30s. Her troponins continue to rise. Cardiology is consulted and aware. Patient an episode prior to transfer to the ICU where she had bradycardia down to the 20s, a code purple was called. Patient received 1 dose of epinephrine and subsequently experienced an episode of v-tach. She received cardioversion and resume normal sinus rhythm. She was placed on BiPAP and subsequently improved currently she is in heart rates of approximately 75 bpm. Vasculopath Patient has a history of multiple blood clots. Ultimately resulting in her current presentation. On admission to the hospital she was diagnosed with an STEMI and placed on heparin. Respiratory: There was a consideration of intubating the patient during the code purple, she was able to maintain her airway. She was placed on BiPAP and remains on that in the ICU. d/c bipap pt is comfort care GI: -N.p.o. while on BiPAP RENAL/LYTES: - No significant electrolyte derangement. -Replace lytes as needed. ESRD on HD Patient with a history of vasculopathy and chronic kidney disease. Receives hemodialysis Friday, , Friday. Creatinine persistently elevated 9.39 on admission. -Creatinine 5.88 today Replete electrolytes as indicated : - No concerns at this time. ENDO: Per report diet-controlled diabetes type 2 -No concerns at present HEME: - Stable H&H. -Will monitor for any drops in the setting of Heparin gtt ID: -See cardiac -Monitor fever curve. INTEGUMENTARY: -No concerns LINES/IV ACCESS: -PIVs intact. DVT PROPHYLAXIS: - Heparin gtt. Dispo: comfort care Goals of care: The patient's daughter is coming from [place] to discuss goals of care. Per report from the primary team they have already explained to the family prognosis is poor. The family is moving towards comfort measures however still needs time to process Thank you for allowing us to be part of this patient's care. Please refer to Dr. Nava's documentation for any further recommendations. (2) Endocarditis: (3) End stage renal disease: (4) Cardiogenic shock: Supervising Physician Co-Signing Physician Notes Dr. Mejia was the resident-physician during care of patient. I separately evaluated patient for lux portions of the history and the exam. I was present during the critical portion of medical decision making, and I discussed the case with the resident. I generally agree with the findings and plan except for any additions/exceptions noted. Patient is lucid and awake today. She is able to participate in some conversation. Numerous family members at bedside. I discussed the case personally with the patient's retail loan officer and caddy. She continues to have bradycardia and hypotension and is currently on dopamine. She is due for dialysis today and unfortunately due to her increased pressor requirements, she has not a candidate for hemodialysis. This along with her numerous comorbidities including possible endocarditis were discussed with the family and the patient and they are all in agreement with proceeding to comfort measures. I think palliative care and hospice is extremely appropriate in this setting. I did have a lengthy discussion with the patient's family and daughter who is quite tearful and understanding that a compassionate route would be the best option here. We have discontinued the dopamine I will discontinue all laboratory collections. I have personally spent 50 minutes of critical care time in the direct management of this patient. This is a life/limb threatening event. This includes time spent evaluating patient, direct bedside care, chart review, placing orders, interpretation of diagnostic studies, discussion with consultants, patient, and/or family members regarding treatment decisions, as well as other required patient management activities. This time is exclusive of all separately billable procedures, and teaching time and separate from and in addition to any other critical care service time. Subjective Patient seen and evaluated this morning, lying comfortably in bed. No acute events overnight patient was maintained on dopamine throughout the night. Patient's family was at bedside this morning had an extensive conversation with them regarding the patient's prognosis. Patient was intermittently able to participate in the conversation. Upon leaving the room the patient's family reported that they were going to make her comfort care, however wanted to maintain her on the dopamine drip until her sister could make it from [place]. After exiting the room we were subsequently alerted by the patient's family that the patient verbalized to them she wished to have the dopamine drip stopped and be transitioned to comfort care. Physical Exam Physical Exam: General: Elderly female in no acute distress HEENT: Normocephalic atraumatic Neck: Normal to visual inspection Cardiac: Regular rate and rhythm I did not appreciate significant murmurs rubs or gallops Respiratory: Clear to auscultation bilaterally GI: Distended abdomen MSK: Deferred Skin: Deferred Neuro: Alert and oriented Psych: Calm, cooperative, understanding of the gravity of her decisions Results & Data Vital Signs (Past 12 Hours) Vital Signs Temp Pulse Resp BP Pulse Ox 01/30/19 06:33 57 L 13 95/33 L 94 01/30/19 06:19 59 L 20 93/88 L 94 01/30/19 05:48 45 L 15 122/49 L 95 01/30/19 05:34 60 17 101/46 L 94 01/30/19 05:18 44 L 11 L 102/47 L 92 01/30/19 05:03 51 L 23 103/42 L 94 01/30/19 04:48 44 L 9 L 101/31 L 95 01/30/19 04:33 44 L 12 97/40 L 95 01/30/19 04:18 43 L 12 84/27 L 94 01/30/19 04:03 44 L 12 94/34 L 95 01/30/19 04:00 36.6 C 01/30/19 03:50 45 L 13 91/39 L 95 01/30/19 03:33 45 L 10 L 88/32 L 94 01/30/19 03:18 44 L 10 L 86/33 L 93 01/30/19 03:03 44 L 11 L 81/28 L 93 01/30/19 02:48 44 L 10 L 82/30 L 94 01/30/19 02:33 45 L 15 86/29 L 94 01/30/19 02:30 45 L 13 94 01/30/19 02:18 45 L 10 L 90/33 L 94 01/30/19 02:03 49 L 13 85/29 L 94 01/30/19 01:48 51 L 13 86/27 L 94 01/30/19 01:33 45 L 18 88/30 L 94 01/30/19 01:30 45 L 10 L 93 01/30/19 01:18 45 L 10 L 89/26 L 94 01/30/19 01:15 45 L 12 94 01/30/19 01:03 52 L 11 L 84/32 L 94 01/30/19 01:00 46 L 13 95 01/30/19 00:48 45 L 14 82/29 L 93 01/30/19 00:45 45 L 17 93 01/30/19 00:33 46 L 19 84/31 L 94 01/30/19 00:30 47 L 24 92 01/30/19 00:23 44 L 01/30/19 00:18 69 29 H 99/33 L 94 01/30/19 00:15 51 L 23 93 01/30/19 00:02 54 L 13 83/40 L 93 01/30/19 00:00 36.6 C 55 L 15 92 01/29/19 23:48 45 L 12 82/33 L 91 01/29/19 23:45 42 L 12 92 01/29/19 23:33 43 L 12 93/35 L 92 01/29/19 23:30 44 L 14 93 01/29/19 23:18 43 L 19 89/35 L 92 01/29/19 23:15 44 L 11 L 93 01/29/19 23:03 64 16 96/38 L 92 01/29/19 23:00 63 15 92 01/29/19 22:49 60 22 93 01/29/19 22:48 46 L 17 110/33 L 93 01/29/19 22:45 55 L 20 94 01/29/19 22:30 45 L 19 97 01/29/19 22:18 40 L 15 89/45 L 96 01/29/19 22:15 36 L 10 L 96 01/29/19 22:10 36 L 10 L 77/28 L 96 01/29/19 22:00 37 L 14 96 01/29/19 21:45 41 L 15 96 01/29/19 21:30 39 L 10 L 96 01/29/19 21:16 42 L 14 104/54 L 96 01/29/19 21:15 41 L 15 90 01/29/19 21:00 53 L 15 95 01/29/19 20:15 45 L 19 93 01/29/19 20:10 59 L 13 115/29 L 94 01/29/19 20:00 36.6 C 68 17 92 01/29/19 19:58 47 L 16 107/56 L 92 01/29/19 19:45 61 18 94 01/29/19 19:28 53 L 11 L 104/42 L Laboratory Results 01/30/19 01/30/19 01/30/19 Range/Units 07:02 05:49 05:48 WBC (4.8-10.8) K/uL RBC (4.2-5.4) M/uL Hgb (12.0-16.0) g/dL Hct (37-47) % MCV (80-100) fL MCH (25-34) pg MCHC (32-36) g/dL RDW Std Deviation (36.4-46.3) fL RDW Coeff of Kali (11.5-14.5) % Plt Count (130-400) K/uL MPV (7.4-10.4) fL APTT 80.8 H* (21.0-31.0) Seconds PTT Ratio 3.0 ABG pH (7.35-7.45) ABG pCO2 (35-46) mmHg ABG pO2 (80-95) mm/Hg ABG HCO3 (19-24) mmol/L ABG O2 Saturation (90-95) % ABG Base Excess (-9-1.8) mEq/L Jed Test Barometric Pressure mm/Hg Oxygen Given Sodium (136-145) mmol/L Potassium (3.5-5.1) mmol/L Chloride (98-107) mmol/L Carbon Dioxide (21-32) mmol/L Anion Gap (3-11) BUN (7-18) mg/dl Creatinine (0.6-1.2) mg/dl Est Cr Clr Drug Dosing ml/min Est GFR ( Amer) Est GFR (Non-Af Amer) BUN/Creatinine Ratio (10-20) Glucose (70-99) mg/dl POC Glucose 130 H 374 H* (70-99) Calcium (8.5-10.1) mg/dl Phosphorus (2.5-4.9) mg/dl Magnesium (1.8-2.4) mg/dl Total Bilirubin (0.2-1) mg/dl Direct Bilirubin (0-0.2) mg/dl AST (15-37) U/L ALT (12-78) U/L Alkaline Phosphatase (45-117) U/L Troponin I (0-0.045) ng/ml Total Protein (6.4-8.2) gm/dl Albumin (3.4-5.0) gm/dl Beta-Hydroxybutyric Acd Random Vancomycin mcg/ml 01/30/19 01/30/19 01/30/19 Range/Units 05:47 05:47 05:47 WBC (4.8-10.8) K/uL RBC (4.2-5.4) M/uL Hgb (12.0-16.0) g/dL Hct (37-47) % MCV (80-100) fL MCH (25-34) pg MCHC (32-36) g/dL RDW Std Deviation (36.4-46.3) fL RDW Coeff of Klai (11.5-14.5) % Plt Count (130-400) K/uL MPV (7.4-10.4) fL APTT Cancelled (21.0-31.0) Seconds PTT Ratio Cancelled ABG pH 7.29 L (7.35-7.45) ABG pCO2 48 H (35-46) mmHg ABG pO2 29 L (80-95) mm/Hg ABG HCO3 22 (19-24) mmol/L ABG O2 Saturation < 60.0 L (90-95) % ABG Base Excess -4.3 (-9-1.8) mEq/L Jed Test TNP Barometric Pressure 721.0 mm/Hg Oxygen Given FLOW RATE 3 Sodium (136-145) mmol/L Potassium (3.5-5.1) mmol/L Chloride (98-107) mmol/L Carbon Dioxide (21-32) mmol/L Anion Gap (3-11) BUN (7-18) mg/dl Creatinine (0.6-1.2) mg/dl Est Cr Clr Drug Dosing ml/min Est GFR ( Amer) Est GFR (Non-Af Amer) BUN/Creatinine Ratio (10-20) Glucose (70-99) mg/dl POC Glucose (70-99) Calcium (8.5-10.1) mg/dl Phosphorus (2.5-4.9) mg/dl Magnesium (1.8-2.4) mg/dl Total Bilirubin (0.2-1) mg/dl Direct Bilirubin (0-0.2) mg/dl AST (15-37) U/L ALT (12-78) U/L Alkaline Phosphatase (45-117) U/L Troponin I (0-0.045) ng/ml Total Protein (6.4-8.2) gm/dl Albumin (3.4-5.0) gm/dl Beta-Hydroxybutyric Acd Random Vancomycin 19.9 mcg/ml 01/30/19 01/30/19 01/30/19 Range/Units 05:47 05:47 05:47 WBC 14.54 H (4.8-10.8) K/uL RBC 3.48 L (4.2-5.4) M/uL Hgb 11.3 L (12.0-16.0) g/dL Hct 35.5 L (37-47) % MCV 102.0 H (80-100) fL MCH 32.5 (25-34) pg MCHC 31.8 L (32-36) g/dL RDW Std Deviation 58.5 H (36.4-46.3) fL RDW Coeff of Kali 15.9 H (11.5-14.5) % Plt Count 185 (130-400) K/uL MPV 11.7 H (7.4-10.4) fL APTT (21.0-31.0) Seconds PTT Ratio ABG pH (7.35-7.45) ABG pCO2 (35-46) mmHg ABG pO2 (80-95) mm/Hg ABG HCO3 (19-24) mmol/L ABG O2 Saturation (90-95) % ABG Base Excess (-9-1.8) mEq/L Jed Test Barometric Pressure mm/Hg Oxygen Given Sodium 128 L (136-145) mmol/L Potassium 4.7 (3.5-5.1) mmol/L Chloride 90 L (98-107) mmol/L Carbon Dioxide 24 (21-32) mmol/L Anion Gap 14.0 H (3-11) BUN 42 H (7-18) mg/dl Creatinine 7.15 H* D (0.6-1.2) mg/dl Est Cr Clr Drug Dosing 8.0 ml/min Est GFR ( Amer) 5.8 Est GFR (Non-Af Amer) 5.0 BUN/Creatinine Ratio 6.0 L (10-20) Glucose 354 H* (70-99) mg/dl POC Glucose (70-99) Calcium 9.3 (8.5-10.1) mg/dl Phosphorus 8.4 H (2.5-4.9) mg/dl Magnesium 2.6 H (1.8-2.4) mg/dl Total Bilirubin 1.2 H (0.2-1) mg/dl Direct Bilirubin 0.2 (0-0.2) mg/dl AST 53 H (15-37) U/L ALT 38 (12-78) U/L Alkaline Phosphatase 81 (45-117) U/L Troponin I 5.830 H* (0-0.045) ng/ml Total Protein 7.3 (6.4-8.2) gm/dl Albumin 2.6 L (3.4-5.0) gm/dl Beta-Hydroxybutyric Acd TNP Random Vancomycin mcg/ml 01/29/19 01/29/19 01/29/19 Range/Units 23:32 21:13 17:59 WBC (4.8-10.8) K/uL RBC (4.2-5.4) M/uL Hgb (12.0-16.0) g/dL Hct (37-47) % MCV (80-100) fL MCH (25-34) pg MCHC (32-36) g/dL RDW Std Deviation (36.4-46.3) fL RDW Coeff of Kali (11.5-14.5) % Plt Count (130-400) K/uL MPV (7.4-10.4) fL APTT (21.0-31.0) Seconds PTT Ratio ABG pH (7.35-7.45) ABG pCO2 (35-46) mmHg ABG pO2 (80-95) mm/Hg ABG HCO3 (19-24) mmol/L ABG O2 Saturation (90-95) % ABG Base Excess (-9-1.8) mEq/L Jed Test Barometric Pressure mm/Hg Oxygen Given Sodium (136-145) mmol/L Potassium (3.5-5.1) mmol/L Chloride (98-107) mmol/L Carbon Dioxide (21-32) mmol/L Anion Gap (3-11) BUN (7-18) mg/dl Creatinine (0.6-1.2) mg/dl Est Cr Clr Drug Dosing ml/min Est GFR ( Amer) Est GFR (Non-Af Amer) BUN/Creatinine Ratio (10-20) Glucose (70-99) mg/dl POC Glucose 125 H (70-99) Calcium (8.5-10.1) mg/dl Phosphorus (2.5-4.9) mg/dl Magnesium (1.8-2.4) mg/dl Total Bilirubin (0.2-1) mg/dl Direct Bilirubin (0-0.2) mg/dl AST (15-37) U/L ALT (12-78) U/L Alkaline Phosphatase (45-117) U/L Troponin I 6.380 H* 7.000 H* (0-0.045) ng/ml Total Protein (6.4-8.2) gm/dl Albumin (3.4-5.0) gm/dl Beta-Hydroxybutyric Acd Random Vancomycin mcg/ml 01/29/19 Range/Units 17:59 WBC (4.8-10.8) K/uL RBC (4.2-5.4) M/uL Hgb (12.0-16.0) g/dL Hct (37-47) % MCV (80-100) fL MCH (25-34) pg MCHC (32-36) g/dL RDW Std Deviation (36.4-46.3) fL RDW Coeff of Klai (11.5-14.5) % Plt Count (130-400) K/uL MPV (7.4-10.4) fL APTT 50.7 H* (21.0-31.0) Seconds PTT Ratio 1.9 ABG pH (7.35-7.45) ABG pCO2 (35-46) mmHg ABG pO2 (80-95) mm/Hg ABG HCO3 (19-24) mmol/L ABG O2 Saturation (90-95) % ABG Base Excess (-9-1.8) mEq/L Jed Test Barometric Pressure mm/Hg Oxygen Given Sodium (136-145) mmol/L Potassium (3.5-5.1) mmol/L Chloride (98-107) mmol/L Carbon Dioxide (21-32) mmol/L Anion Gap (3-11) BUN (7-18) mg/dl Creatinine (0.6-1.2) mg/dl Est Cr Clr Drug Dosing ml/min Est GFR ( Amer) Est GFR (Non-Af Amer) BUN/Creatinine Ratio (10-20) Glucose (70-99) mg/dl POC Glucose (70-99) Calcium (8.5-10.1) mg/dl Phosphorus (2.5-4.9) mg/dl Magnesium (1.8-2.4) mg/dl Total Bilirubin (0.2-1) mg/dl Direct Bilirubin (0-0.2) mg/dl AST (15-37) U/L ALT (12-78) U/L Alkaline Phosphatase (45-117) U/L Troponin I (0-0.045) ng/ml Total Protein (6.4-8.2) gm/dl Albumin (3.4-5.0) gm/dl Beta-Hydroxybutyric Acd Random Vancomycin mcg/ml Medications Administered Current Inpatient Medications Cyclobenzaprine HCl (Flexeril) 5 mg PO BID PRN PRN Reason: MUSCLE SPASMS Stop: 02/24/19 21:39 Last Admin: 01/28/19 12:44 Dose: 5 mg Documented by: Dextrose (Dextrose 50%) 25 - 50 ml IV UD PRN; Protocol PRN Reason: Hypoglycemia Protocol Stop: 02/24/19 21:39 Famotidine (Pepcid) 20 mg PO QAM PRN PRN Reason: acid reflex Stop: 02/24/19 21:39 Last Admin: 01/26/19 09:44 Dose: 20 mg Documented by: Glucagon (Glucagen) 1 mg SQ UD PRN; Protocol PRN Reason: Hypoglycemia Protocol Stop: 02/24/19 21:39 Glucose (Dex4 Glucose) 4 - 8 tabs PO UD PRN; Protocol PRN Reason: Hypoglycemia Protocol Stop: 02/24/19 21:39 Glucose (Glucose 40%) 15 - 30 gm PO UD PRN; Protocol PRN Reason: Hypoglycemia Protocol Stop: 02/24/19 21:39 Glycopyrrolate (Robinul) 0.2 mg IV Q4H PRN PRN Reason: palliative Stop: 03/01/19 10:49 Sodium Chloride (Nss 1000ml) 1,000 mls @ 0 mls/hr IV .Q0M PRN PRN Reason: For Hemodialysis Use ONLY Stop: 01/30/19 12:59 Miscellaneous (Carbohydrates For Hypoglycemia) 15 - 30 gm PO UD PRN PRN Reason: Hypoglycemia Protocol Stop: 02/24/19 21:39 Morphine Sulfate (Morphine Sulfate) 4 mg IV Q4H PRN PRN Reason: Severe Pain Stop: 02/10/19 12:19 Last Admin: 01/29/19 11:20 Dose: 4 mg Documented by: Morphine Sulfate (Morphine Sulfate) 2 mg IV Q1H PRN PRN Reason: air hunger Stop: 02/10/19 12:19 Last Admin: 01/30/19 11:32 Dose: 2 mg Documented by: Resident Activity Tracking Resident Involvement: Resident Care Provided Care Provided: Adult Hospital Medicine
[2019-01-30 07:47] LABS: Partial Thromboplastin Time 80.8 Seconds (21.0-31.0)
--- NOTE | 2019-01-30 09:52 | Cardiology Progress Note ---
Date of Service January 30, 2019 Assessment & Plan (1) Gram positive sepsis: Cultures growing strep bovis. Echocardiogram and evaluation suspicious for vegetation though not confirmed. Alternative sources of infection are also possible however recent embolic stroke remains concerning. Patient currently not stable respiratory status for sedation and transesophageal echocardiogram. Information not likely to tire changer as patient will warrant a long-term anti-biotic therapy and surgical risk likely prohibitive Agree with current plan with supportive care anticoagulation, antibiotics. If patient should become intubated in course of therapy would proceed with transesophageal echocardiogram at that time. Patient's overall condition is extremely guarded Discussed management in detail with daughter and brother. Plan will be to continue conservative management with antibiotic therapies. Not surgical candidate. They would not wish and intensification of care. (2) Elevated troponin I level: Etiology is multifactorial question acute infarct secondary to embolic phenomena versus secondary ischemia. Underlying coronary disease is notable for prior emergent coronary bypass grafting. Patient has significantly restricted arterial access which would limit diagnostic cardiac catheterization Ongoing medical management warranted with otherwise limited options or therapy (3) CAD (coronary artery disease): (4) Embolic stroke: Mental status changes with MRI abnormalities confirmed (5) Bradycardia: Patient with underlying conduction system disease on prior EKGs including interventricular conduction delay and intermittent first-degree AV block. Current bradycardia appears to be sinus mediated rather than AV block possibly secondary central causes. Patient not on any AV selina blocking drugs due to known conduction system disease Pacer pads in place Current rhythm sinus bradycardia with first-degree AV block Blood pressures relatively soft and no signs of acute volume overload currently. May need to withhold dialysis today Subjective Patient seen and examined, chart, medications, telemetry reviewed. Relatively stable hemodynamically overnight. No further profound arrhythmias with patient bradycardic intermittent accelerated interventricular rhythm. No pauses Patient awake but not oriented. Denies any specific chest pain or discomfort Physical Exam Constitutional: + obese and + altered mental status ENMT: external ear and nose normal, oropharynx normal Neck: + thick neck Respiratory: Auscultation: + diminished lung sounds Cardiovascular: Rate/Rhythm: regular rate and regular rhythm Heart Sounds: + murmur (Grade 2/6) Very distant heart sounds Gastrointestinal (Abdomen): Inspection/Auscultation: + abdomen distended Percussion/Palpation: abdomen soft Neurologic: + confused (Somnolent) Results & Data Vital Signs (Past 12 Hours) Vital Signs Temp Pulse Resp BP Pulse Ox 12/14/19 08:49 58 L 16 102/30 L 94 01/30/19 08:18 56 L 16 87/30 L 95 01/30/19 08:03 55 L 24 91/37 L 94 01/30/19 08:00 46 L 01/30/19 07:48 36.6 C 56 L 19 91/32 L 94 01/30/19 07:38 57 L 19 96/37 L 94 01/30/19 07:18 54 L 17 91/50 L 93 01/30/19 07:03 57 L 14 76/35 L 01/30/19 06:48 57 L 14 82/28 L 94 01/30/19 06:33 57 L 13 95/33 L 94 01/30/19 06:19 59 L 20 93/88 L 94 01/30/19 05:48 45 L 15 122/49 L 95 01/30/19 05:34 60 17 101/46 L 94 01/30/19 05:18 44 L 11 L 102/47 L 92 01/30/19 05:03 51 L 23 103/42 L 94 01/30/19 04:48 44 L 9 L 101/31 L 95 01/30/19 04:33 44 L 12 97/40 L 95 01/30/19 04:18 43 L 12 84/27 L 94 01/30/19 04:03 44 L 12 94/34 L 95 01/30/19 04:00 36.6 C 01/30/19 03:50 45 L 13 91/39 L 95 01/30/19 03:33 45 L 10 L 88/32 L 94 01/30/19 03:18 44 L 10 L 86/33 L 93 01/30/19 03:03 44 L 11 L 81/28 L 93 01/30/19 02:48 44 L 10 L 82/30 L 94 01/30/19 02:33 45 L 15 86/29 L 94 01/30/19 02:30 45 L 13 94 01/30/19 02:18 45 L 10 L 90/33 L 94 01/30/19 02:03 49 L 13 85/29 L 94 01/30/19 01:48 51 L 13 86/27 L 94 01/30/19 01:33 45 L 18 88/30 L 94 01/30/19 01:30 45 L 10 L 93 01/30/19 01:18 45 L 10 L 89/26 L 94 01/30/19 01:15 45 L 12 94 01/30/19 01:03 52 L 11 L 84/32 L 94 01/30/19 01:00 46 L 13 95 01/30/19 00:48 45 L 14 82/29 L 93 01/30/19 00:45 45 L 17 93 01/30/19 00:33 46 L 19 84/31 L 94 01/30/19 00:30 47 L 24 92 01/30/19 00:23 44 L 01/30/19 00:18 69 29 H 99/33 L 94 01/30/19 00:15 51 L 23 93 01/30/19 00:02 54 L 13 83/40 L 93 01/30/19 00:00 36.6 C 55 L 15 92 01/29/19 23:48 45 L 12 82/33 L 91 01/29/19 23:45 42 L 12 92 01/29/19 23:33 43 L 12 93/35 L 92 01/29/19 23:30 44 L 14 93 01/29/19 23:18 43 L 19 89/35 L 92 01/29/19 23:15 44 L 11 L 93 01/29/19 23:03 64 16 96/38 L 92 01/29/19 23:00 63 15 92 01/29/19 22:49 60 22 93 01/29/19 22:48 46 L 17 110/33 L 93 01/29/19 22:45 55 L 20 94 01/29/19 22:30 45 L 19 97 01/29/19 22:18 40 L 15 89/45 L 96 01/29/19 22:15 36 L 10 L 96 01/29/19 22:10 36 L 10 L 77/28 L 96 01/29/19 22:00 37 L 14 96 Laboratory Results Laboratory Results - last 24 hr 01/29/19 01/29/19 01/29/19 07:08 12:03 17:59 WBC RBC Hgb Hct MCV MCH MCHC RDW Std Deviation RDW Coeff of Kali Plt Count MPV APTT 36.6 H 34.7 H 50.7 H* PTT Ratio 1.4 1.3 1.9 ABG pH ABG pCO2 ABG pO2 ABG HCO3 ABG O2 Saturation ABG Base Excess Jed Test Barometric Pressure Oxygen Given Sodium Potassium Chloride Carbon Dioxide Anion Gap BUN Creatinine Est Cr Clr Drug Dosing Est GFR ( Amer) Est GFR (Non-Af Amer) BUN/Creatinine Ratio Glucose POC Glucose Calcium Phosphorus Magnesium Total Bilirubin Direct Bilirubin AST ALT Alkaline Phosphatase Troponin I Total Protein Albumin Beta-Hydroxybutyric Acd Random Vancomycin 01/29/19 01/29/19 01/29/19 17:59 21:13 23:32 WBC RBC Hgb Hct MCV MCH MCHC RDW Std Deviation RDW Coeff of Kali Plt Count MPV APTT PTT Ratio ABG pH ABG pCO2 ABG pO2 ABG HCO3 ABG O2 Saturation ABG Base Excess Jed Test Barometric Pressure Oxygen Given Sodium Potassium Chloride Carbon Dioxide Anion Gap BUN Creatinine Est Cr Clr Drug Dosing Est GFR ( Amer) Est GFR (Non-Af Amer) BUN/Creatinine Ratio Glucose POC Glucose 125 H Calcium Phosphorus Magnesium Total Bilirubin Direct Bilirubin AST ALT Alkaline Phosphatase Troponin I 7.000 H* 6.380 H* Total Protein Albumin Beta-Hydroxybutyric Acd Random Vancomycin 01/30/19 01/30/19 01/30/19 05:47 05:47 05:47 WBC 14.54 H RBC 3.48 L Hgb 11.3 L Hct 35.5 L MCV 102.0 H MCH 32.5 MCHC 31.8 L RDW Std Deviation 58.5 H RDW Coeff of Kali 15.9 H Plt Count 185 MPV 11.7 H APTT PTT Ratio ABG pH ABG pCO2 ABG pO2 ABG HCO3 ABG O2 Saturation ABG Base Excess Jed Test Barometric Pressure Oxygen Given Sodium 128 L Potassium 4.7 Chloride 90 L Carbon Dioxide 24 Anion Gap 14.0 H BUN 42 H Creatinine 7.15 H* D Est Cr Clr Drug Dosing 8.0 Est GFR ( Amer) 5.8 Est GFR (Non-Af Amer) 5.0 BUN/Creatinine Ratio 6.0 L Glucose 354 H* POC Glucose Calcium 9.3 Phosphorus 8.4 H Magnesium 2.6 H Total Bilirubin 1.2 H Direct Bilirubin 0.2 AST 53 H ALT 38 Alkaline Phosphatase 81 Troponin I 5.830 H* Total Protein 7.3 Albumin 2.6 L Beta-Hydroxybutyric Acd TNP Random Vancomycin 01/30/19 01/30/19 01/30/19 05:47 05:47 05:47 WBC RBC Hgb Hct MCV MCH MCHC RDW Std Deviation RDW Coeff of Kali Plt Count MPV APTT Cancelled PTT Ratio Cancelled ABG pH 7.29 L ABG pCO2 48 H ABG pO2 29 L ABG HCO3 22 ABG O2 Saturation < 60.0 L ABG Base Excess -4.3 Jed Test TNP Barometric Pressure 721.0 Oxygen Given FLOW RATE 3 Sodium Potassium Chloride Carbon Dioxide Anion Gap BUN Creatinine Est Cr Clr Drug Dosing Est GFR ( Amer) Est GFR (Non-Af Amer) BUN/Creatinine Ratio Glucose POC Glucose Calcium Phosphorus Magnesium Total Bilirubin Direct Bilirubin AST ALT Alkaline Phosphatase Troponin I Total Protein Albumin Beta-Hydroxybutyric Acd Random Vancomycin 19.9 01/30/19 01/30/19 01/30/19 05:48 05:49 07:02 WBC RBC Hgb Hct MCV MCH MCHC RDW Std Deviation RDW Coeff of Kali Plt Count MPV APTT 80.8 H* PTT Ratio 3.0 ABG pH ABG pCO2 ABG pO2 ABG HCO3 ABG O2 Saturation ABG Base Excess Jed Test Barometric Pressure Oxygen Given Sodium Potassium Chloride Carbon Dioxide Anion Gap BUN Creatinine Est Cr Clr Drug Dosing Est GFR ( Amer) Est GFR (Non-Af Amer) BUN/Creatinine Ratio Glucose POC Glucose 374 H* 130 H Calcium Phosphorus Magnesium Total Bilirubin Direct Bilirubin AST ALT Alkaline Phosphatase Troponin I Total Protein Albumin Beta-Hydroxybutyric Acd Random Vancomycin (1) CAD (coronary artery disease) Associated angina: angina presence unspecified Coronary Disease-Associated Artery/Lesion type: unspecified vessel or lesion type [place] vs. transplanted heart: [place] heart Qualified Code(s): I25.10 - Atherosclerotic heart disease of [place] coronary artery without angina pectoris
--- NOTE | 2019-01-30 10:43 | Hospitalist Progress Note ---
Date of Service January 30, 2019 Assessment & Plan (1) ST elevation: Patient will be transferred to the floor for the comfort care per family request. Family requested to stop dopamine and to transfer patient to the medical surgical bed where she can be given only comfort care. Patient has multiple organs failure. Pain management. Comfort care as requested. Patient is DNR/DNI. Present on Admission?: Yes (2) Nihss score 11: Patient is not operable candidate. She has mitral valve vegetations and embolic stroke. We will continue comfort care as per family's request. Present on Admission?: Yes (3) Endocarditis: As per family request only comfort care. Patient is not operable candidate. Multiple organ failure. Present on Admission?: Yes (4) Bradycardia: Comfort care (5) Embolic stroke: Comfort care (6) Lethargy: Comfort care (7) Gram positive sepsis: As per family request we will continue comfort care. Present on Admission?: Yes (8) DM type 2 (diabetes mellitus, type 2): Glycemic control per pharmacy and comfort care. Present on Admission?: Yes (9) CAD (coronary artery disease): Comfort care as per request of the family. Present on Admission?: Yes (10) Hypothyroid: Continue home medicine levothyroxine 150 MCG's p.o. daily. Present on Admission?: Yes (11) Hyperlipidemia: Continue home medicine atorvastatin 40 mg p.o. nightly Present on Admission?: Yes (12) End stage renal disease: Per recommendation of Dr. Adamson teacher [facility] and per family wishes patient patient will not continue hemodialysis due to her blood pressure being very low and having multiple organ failures and being hemodynamically unstable. Family requested only comfort care. Present on Admission?: Yes Supervising Physician Co-Signing Physician Notes . Subjective Patient seen and examined at the bedside with her family , chart, medications, telemetry reviewed.Pt is alert, but not oriented in the time and space. Patient family is at the bedside and requested to have a comfort care only. Patient is not able to understand nor she is able to make advanced directive at this point. Patient is not getting better and her prognosis is grim. Patient suffered cardiac arrest requiring CPR and transferred to the ICU due to hypotension and required pressor support. Patient was found to have sepsis with mitral valve vegetations and probable septic emboli to the brain. Patient is not a candidate for MV replacement due to multiple organ failures. Patient family request requested today to take patient off the pressors and continue only with comfort care because she is not improving, further invasive procedures are not visible, and she has multiple organs failure. We also requested to change patient CODE STATUS from full code to DNR/DNI. Patient was also seen by nephrology and requested to stop patient hemodialysis. Patient does not have any particular complain at this time. Patient is not in pain. Review of Systems Review of Systems: All systems reviewed & are unremarkable except as noted in HPI & below Constitutional: + fatigue and + weakness; no fever Physical Exam Constitutional: WD/WN, vitals as above well developed, + ill appearing and + morbidly obese ENMT: external ear and nose normal, oropharynx normal Neck: trachea midline, no thyromegaly Respiratory: Auscultation: + crackles and + wheezes Cardiovascular: Rate/Rhythm: + bradycardic Heart Sounds: normal S1, normal S2, + abnormal opening sounds and + murmur Vessels: + JVD Extremities: + edema Gastrointestinal (Abdomen): normal bowel sounds, soft, nontender, no hepatosplenomegaly Musculoskeletal: no cyanosis or clubbing, extremities motor strength 5/5 Skin: no rashes, warm and dry Neurologic: awake Patient is alert only to herself. She is severely ill. She is not alert oriented in time and space. She responds to stimuli. Patient is dying. Psychiatric: Hard to evaluate. Genitourinary: no vaginal lesions, no adnexal mass Lymphatic: no cervical or axillary lymphadenopathy Results & Data Vital Signs (Past 12 Hours) Vital Signs Temp Pulse Resp BP Pulse Ox 01/30/19 10:00 62 18 93 01/30/19 09:48 61 13 104/46 L 95 01/30/19 09:33 57 L 17 103/36 L 94 01/30/19 09:30 57 L 17 94 01/30/19 09:18 57 L 18 105/39 L 01/30/19 09:03 57 L 26 H 107/35 L 01/30/19 08:50 57 L 28 H 96 01/30/19 08:49 58 L 16 102/30 L 94 01/30/19 08:18 56 L 16 87/30 L 95 01/30/19 08:03 55 L 24 91/37 L 94 01/30/19 08:00 46 L 01/30/19 07:48 36.6 C 56 L 19 91/32 L 94 01/30/19 07:38 57 L 19 96/37 L 94 01/30/19 07:18 54 L 17 91/50 L 93 01/30/19 07:03 57 L 14 76/35 L 01/30/19 06:48 57 L 14 82/28 L 94 01/30/19 06:33 57 L 13 95/33 L 94 01/30/19 06:19 59 L 20 93/88 L 94 01/30/19 05:48 45 L 15 122/49 L 95 01/30/19 05:34 60 17 101/46 L 94 01/30/19 05:18 44 L 11 L 102/47 L 92 01/30/19 05:03 51 L 23 103/42 L 94 01/30/19 04:48 44 L 9 L 101/31 L 95 01/30/19 04:33 44 L 12 97/40 L 95 01/30/19 04:18 43 L 12 84/27 L 94 01/30/19 04:03 44 L 12 94/34 L 95 01/30/19 04:00 36.6 C 01/30/19 03:50 45 L 13 91/39 L 95 01/30/19 03:33 45 L 10 L 88/32 L 94 01/30/19 03:18 44 L 10 L 86/33 L 93 01/30/19 03:03 44 L 11 L 81/28 L 93 01/30/19 02:48 44 L 10 L 82/30 L 94 01/30/19 02:33 45 L 15 86/29 L 94 01/30/19 02:30 45 L 13 94 01/30/19 02:18 45 L 10 L 90/33 L 94 01/30/19 02:03 49 L 13 85/29 L 94 01/30/19 01:48 51 L 13 86/27 L 94 01/30/19 01:33 45 L 18 88/30 L 94 01/30/19 01:30 45 L 10 L 93 01/30/19 01:18 45 L 10 L 89/26 L 94 01/30/19 01:15 45 L 12 94 01/30/19 01:03 52 L 11 L 84/32 L 94 01/30/19 01:00 46 L 13 95 01/30/19 00:48 45 L 14 82/29 L 93 01/30/19 00:45 45 L 17 93 01/30/19 00:33 46 L 19 84/31 L 94 01/30/19 00:30 47 L 24 92 01/30/19 00:23 44 L 01/30/19 00:18 69 29 H 99/33 L 94 01/30/19 00:15 51 L 23 93 01/30/19 00:02 54 L 13 83/40 L 93 01/30/19 00:00 36.6 C 55 L 15 92 01/29/19 23:48 45 L 12 82/33 L 91 01/29/19 23:45 42 L 12 92 01/29/19 23:33 43 L 12 93/35 L 92 01/29/19 23:30 44 L 14 93 01/29/19 23:18 43 L 19 89/35 L 92 01/29/19 23:15 44 L 11 L 93 01/29/19 23:03 64 16 96/38 L 92 01/29/19 23:00 63 15 92 01/29/19 22:49 60 22 93 01/29/19 22:48 46 L 17 110/33 L 93 01/29/19 22:45 55 L 20 94 PG Care Time/CCT Total # of Minutes Spent Total Time Spent with Patient: Total time spent is greater than 50% in coordination of care (as documented) at patient's floor/unit and/or counseling patient: (1) CAD (coronary artery disease) Associated angina: angina presence unspecified Coronary Disease-Associated Artery/Lesion type: unspecified vessel or lesion type [place] vs. transplanted heart: [place] heart Qualified Code(s): I25.10 - Atherosclerotic heart disease of [place] coronary artery without angina pectoris
[2019-01-30] MEDS ORDERED: GLYCOPYRROLATE 0.2 MG/ML VIAL IV PRN (10:50)
--- NOTE | 2019-01-30 10:55 | Nephrology Progress Note ---
Date of Service January 30, 2019 Assessment & Plan (1) ESRD (end stage renal disease) on dialysis: -- Recent medical events reviewed w/ ICU team and family. Patient suffered cardiac arrest requiring CPR and transfer to ICU. She has hypotension and requires pressor support. Evaluation has revealed a MV vegetation and probable septic emboli to the brain. She is not a candidate for MV replacement. Ms. Monae is oriented to self only. Her family notes that she has a living will and does not want heroic measures. They have requested that dialysis be stopped and Ms. Monae be transitioned to comfort care. Given the severity of her illness and previous expressed desires not to undergo prolonged hospitalization or further procedures I agree with their decision and will stop HD. (2) Elevated troponin I level: (3) Fever: (4) Lethargy: (5) DM type 2 (diabetes mellitus, type 2): Subjective Mrs. Monae was seen and examined in the ICU this morning. She awakens to voice and will speak her name but is not oriented to place or month. She does not follow commands. She is currently on Dopamine gtt at 5 mcg/min IV to maintain SBP 80 mmHg. Review of Systems Review of Systems: Unobtainable due to cognitive status Physical Exam Constitutional: + overweight Eyes: PERRL, conjunctivae normal, anicteric sclerae ENMT: external ear and nose normal, oropharynx normal Neck: trachea midline, no thyromegaly Respiratory: normal respiratory effort, lungs clear to auscultation Cardiovascular: Rate/Rhythm: + bradycardic Extremities: + AV fistula (R femoral AVG + bruit, no erythema or fluctuance) Gastrointestinal (Abdomen): normal bowel sounds, soft, nontender, no hepatosplenomegaly Musculoskeletal: Extremities: no cyanosis Skin: no rashes, warm and dry Neurologic: awake Results & Data Vital Signs (Past 12 Hours) Vital Signs Temp Pulse Resp BP Pulse Ox 01/30/19 10:00 62 18 93 01/30/19 09:48 61 13 104/46 L 95 01/30/19 09:33 57 L 17 103/36 L 94 01/30/19 09:30 57 L 17 94 01/30/19 09:18 57 L 18 105/39 L 01/30/19 09:03 57 L 26 H 107/35 L 01/30/19 08:50 57 L 28 H 96 01/30/19 08:49 58 L 16 102/30 L 94 01/30/19 08:18 56 L 16 87/30 L 95 01/30/19 08:03 55 L 24 91/37 L 94 01/30/19 08:00 46 L 01/30/19 07:48 36.6 C 56 L 19 91/32 L 94 01/30/19 07:38 57 L 19 96/37 L 94 01/30/19 07:18 54 L 17 91/50 L 93 01/30/19 07:03 57 L 14 76/35 L 01/30/19 06:48 57 L 14 82/28 L 94 01/30/19 06:33 57 L 13 95/33 L 94 01/30/19 06:19 59 L 20 93/88 L 94 01/30/19 05:48 45 L 15 122/49 L 95 01/30/19 05:34 60 17 101/46 L 94 01/30/19 05:18 44 L 11 L 102/47 L 92 01/30/19 05:03 51 L 23 103/42 L 94 01/30/19 04:48 44 L 9 L 101/31 L 95 01/30/19 04:33 44 L 12 97/40 L 95 01/30/19 04:18 43 L 12 84/27 L 94 01/30/19 04:03 44 L 12 94/34 L 95 01/30/19 04:00 36.6 C 01/30/19 03:50 45 L 13 91/39 L 95 01/30/19 03:33 45 L 10 L 88/32 L 94 01/30/19 03:18 44 L 10 L 86/33 L 93 01/30/19 03:03 44 L 11 L 81/28 L 93 01/30/19 02:48 44 L 10 L 82/30 L 94 01/30/19 02:33 45 L 15 86/29 L 94 01/30/19 02:30 45 L 13 94 01/30/19 02:18 45 L 10 L 90/33 L 94 01/30/19 02:03 49 L 13 85/29 L 94 01/30/19 01:48 51 L 13 86/27 L 94 01/30/19 01:33 45 L 18 88/30 L 94 01/30/19 01:30 45 L 10 L 93 01/30/19 01:18 45 L 10 L 89/26 L 94 01/30/19 01:15 45 L 12 94 01/30/19 01:03 52 L 11 L 84/32 L 94 01/30/19 01:00 46 L 13 95 01/30/19 00:48 45 L 14 82/29 L 93 01/30/19 00:45 45 L 17 93 01/30/19 00:33 46 L 19 84/31 L 94 01/30/19 00:30 47 L 24 92 01/30/19 00:23 44 L 01/30/19 00:18 69 29 H 99/33 L 94 01/30/19 00:15 51 L 23 93 01/30/19 00:02 54 L 13 83/40 L 93 01/30/19 00:00 36.6 C 55 L 15 92 01/29/19 23:48 45 L 12 82/33 L 91 01/29/19 23:45 42 L 12 92 01/29/19 23:33 43 L 12 93/35 L 92 01/29/19 23:30 44 L 14 93 01/29/19 23:18 43 L 19 89/35 L 92 01/29/19 23:15 44 L 11 L 93 01/29/19 23:03 64 16 96/38 L 92 01/29/19 23:00 63 15 92 01/29/19 22:49 60 22 93 01/29/19 22:48 46 L 17 110/33 L 93 01/29/19 22:45 55 L 20 94 Laboratory Results Laboratory Tests 01/28/19 01/29/19 01/29/19 06:15 06:39 06:39 WBC 11.77 H Hgb 11.8 L Hct 36.7 L Plt Count 142 Sodium 129 L 133 L Potassium 5.5 H 4.9 Chloride 93 L 98 Carbon Dioxide 26 24 BUN 50 H 32 H Creatinine 8.82 H* D 5.88 H* D Glucose 99 116 H 01/30/19 01/30/19 05:47 05:47 WBC 14.54 H Hgb 11.3 L Hct 35.5 L Plt Count 185 Sodium 128 L Potassium 4.7 Chloride 90 L Carbon Dioxide 24 BUN 42 H Creatinine 7.15 H* D Glucose 354 H* PG Care Time/CCT Total # of Minutes Spent Total Time Spent with Patient: Total time spent is greater than 50% in coordination of care (as documented) at patient's floor/unit and/or counseling patient:
[2019-01-30] MEDS: CLOPIDOGREL BISULFATE 75 MG TAB PO SCH (11:29)
[2019-01-30] MEDS: cefTRIAXone SODIUM 2,000 MG in DEXTROSE 5% 50 ML IV SCH (11:29)
[2019-01-30] MEDS: KETOCONAZOLE 2% CR 15 GM TUBE EXT SCH (11:30)
[2019-01-30] MEDS: ASPIRIN 81 MG ECTAB PO SCH (11:30)
[2019-01-30] MEDS: CEROVITE ADV FORMULA TAB PO SCH (11:30)
[2019-01-30] MEDS: CALCIUM ACETATE 667 MG CAP PO SCH (11:30)
[2019-01-30] MEDS: MoRPHine SULFATE 2 MG/ML CARP IV PRN ×5 (11:32→18:21)
--- NOTE | 2019-01-30 12:11 | Billing Data ---
Date of Service January 30, 2019 Coding Level of Care Code Critical Care 1st 30-74 mins Time Spent (min) 50
[2019-01-31] MEDS: MoRPHine SULFATE 2 MG/ML CARP IV PRN ×5 (09:17→21:42)
--- NOTE | 2019-01-31 14:18 | Hospitalist Progress Note ---
Date of Service January 31, 2019 Assessment & Plan (1) ST elevation: Pt is on hospice now per her family request. Palliative care consulted. Patient has multiple organs failure. Pain management. Comfort care as requested. Patient is DNR/DNI. (2) Nihss score 11: Patient is not operable candidate. She has mitral valve vegetations and embolic stroke. We will continue comfort care as per family's request. (3) Endocarditis: As per family request only comfort care. Patient is not operable candidate. Multiple organ failure. (4) Bradycardia: Comfort care (5) Embolic stroke: Comfort care (6) Lethargy: Comfort care (7) Gram positive sepsis: As per family request we will continue comfort care. (8) DM type 2 (diabetes mellitus, type 2): Glycemic control per pharmacy and comfort care. (9) CAD (coronary artery disease): Comfort care as per request of the family. (10) Hypothyroid: Continue home medicine levothyroxine 150 MCG's p.o. daily. (11) Hyperlipidemia: Continue home medicine atorvastatin 40 mg p.o. 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 Family requested only comfort care. Subjective Patient seen and examined at the bedside with her family , chart, medications, telemetry reviewed.Pt is now further on declining. he is less alert and oriented but arousable. Her family is next to her bedside,daughter and aunt. Pt is not in pain. We reminded family if they feel that pt is in pt ( since she cannot articulate it )to ask the nurse to give pt morphine which is standing order prn.Pt is DNR/DNI and family requested hospice care only. Pt also declined hemodialysis. Review of Systems Review of Systems: Constitutional: + fatigue and + weakness; no fever Musculoskeletal: + back pain and + joint pain Physical Exam Constitutional: WD/WN, vitals as above well developed, + ill appearing and + morbidly obese ENMT: external ear and nose normal, oropharynx normal Neck: trachea midline, no thyromegaly Respiratory: Auscultation: + crackles and + wheezes Cardiovascular: Rate/Rhythm: + bradycardic Heart Sounds: normal S1, normal S2, + abnormal opening sounds and + murmur Vessels: + JVD Extremities: + edema Gastrointestinal (Abdomen): normal bowel sounds, soft, nontender, no hepatosplenomegaly Musculoskeletal: no cyanosis or clubbing, extremities motor strength 5/5 Skin: no rashes, warm and dry Neurologic: awake Genitourinary: no vaginal lesions, no adnexal mass Lymphatic: no cervical or axillary lymphadenopathy PG Care Time/CCT Total # of Minutes Spent Total Time Spent with Patient: Total time spent is greater than 50% in coordination of care (as documented) at patient's floor/unit and/or counseling patient: (1) CAD (coronary artery disease) Associated angina: angina presence unspecified Coronary Disease-Associated Artery/Lesion type: unspecified vessel or lesion type [place] vs. transplanted heart: [place] heart Qualified Code(s): I25.10 - Atherosclerotic heart disease of [place] coronary artery without angina pectoris
[2019-02-01] MEDS: MoRPHine SULFATE 2 MG/ML CARP IV PRN ×10 (03:18→20:02)
--- NOTE | 2019-02-01 08:49 | Hospitalist Progress Note ---
Date of Service February 01, 2019 Assessment & Plan (1) ST elevation: Pt is on hospice now per her family request. Appreciate palliative care recommendations. Patient has multiple organs failure. Pain management. Comfort care as requested. Patient is DNR/DNI. (2) Nihss score 11: Patient is not operable candidate. She has mitral valve vegetations and embolic stroke. We will continue comfort care as per family's request. (3) Endocarditis: As per family request only comfort care. Patient is not operable candidate. Multiple organ failure. (4) Bradycardia: Comfort care (5) Embolic stroke: Comfort care (6) Lethargy: Comfort care (7) Gram positive sepsis: As per family request we will continue comfort care. (8) DM type 2 (diabetes mellitus, type 2): Glycemic control per pharmacy and comfort care. (9) CAD (coronary artery disease): Comfort care as per request of the family. (10) Hypothyroid: Continue home medicine levothyroxine 150 MCG's p.o. daily. (11) Hyperlipidemia: Continue home medicine atorvastatin 40 mg p.o. nightly (12) End stage renal disease: Per recommendation of Dr. Adamson director executive communications and per family wishes patient patient will not continue hemodialysis due to her blood pressure being very low and having multiple organ failures and being hemodynamically unstable. Family requested only comfort care. Subjective Patient seen and examined at the bedside with her family , chart, medications, telemetry reviewed.Pt is now further on declining. He is arousable but less alert and oriented. Patient is nonverbal. Her family is next to her bed side,daughter and aunt. Pt is not in pain. We reminded family if they feel that pt is in pt -making green masses red in her face frowning ( since she cannot articulate it )to ask the nurse to give pt morphine which is standing order prn.Pt is DNR/DNI and family requested hospice care only. Pt also declined hemodialysis. Review of Systems Review of Systems: All systems reviewed & are unremarkable except as noted in HPI & below Physical Exam Constitutional: WD/WN, vitals as above well developed, + ill appearing and + morbidly obese ENMT: external ear and nose normal, oropharynx normal Neck: trachea midline, no thyromegaly Respiratory: Auscultation: + crackles and + wheezes Cardiovascular: Rate/Rhythm: + bradycardic Heart Sounds: normal S1, normal S2, + abnormal opening sounds and + murmur Vessels: + JVD Extremities: + edema Gastrointestinal (Abdomen): normal bowel sounds, soft, nontender, no hepatosplenomegaly Musculoskeletal: no cyanosis or clubbing, extremities motor strength 5/5 Skin: no rashes, warm and dry Neurologic: awake Genitourinary: no vaginal lesions, no adnexal mass Lymphatic: no cervical or axillary lymphadenopathy PG Care Time/CCT Total # of Minutes Spent Total Time Spent with Patient: Total time spent is greater than 50% in coordination of care (as documented) at patient's floor/unit and/or counseling patient: (1) CAD (coronary artery disease) Associated angina: angina presence unspecified Coronary Disease-Associated Artery/Lesion type: unspecified vessel or lesion type [place] vs. transplanted heart: [place] heart Qualified Code(s): I25.10 - Atherosclerotic heart disease of [place] coronary artery without angina pectoris
--- NOTE | 2019-02-01 11:55 | Palliative Care Consultation ---
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 Patient was found to have elevated troponin, EKG changes, and NSTEMI. Patient not a good heart cath candidate, so she was being treated medically. She continued to have problems with bradycardia and lethargy. Patient was a code purple, then a code blue last week and was administered epinephrine. She was sent to the ICU on BiPAP and fortunately was able to stave off intubation with an intact mental status after her code. Patient quickly transitioned back to nasal cannula. Echocardiogram of the heart showed vegetation of the mitral valve. Perm cath was removed, the tip grew out strep bovis as well as her blood cultures. Unf ortunately patient entered multi system organ failure. Creatinine increased to >7, not making any urine. Limited vascular access. Overall prognosis was quite poor and patient was able to verbalize that she did not want to continue with aggressive care and wanted to transition to comfort measures only. Palliative care consulted. -Met with patient and her family including her daughter, sister, and another family member in room 460. -Patient's family states that the goal is of course strictly for comfort. They are struggling with watching this slow decline, as they thought patient would pass away quickly once transitioned to comfort measures. They also fully understand that this is nature taking its course and that she will pass away in time. Support and end of life education given. -Patient is obtunded, no furrowed brow during my visit, appeared calm and comfortable from my assessment. Has received 6 doses of morphine 2mg IV in 24 hours since 1230 yesterday. Would not start continuous morphine gtt at this time due to her being comfortable with the PRN morphine doses which have totaled 12mg in 24 hours. However, if PRN doses increase to being given 3-4 times per nursing shift, could start continuous morphine infusion and titrate to comfort. -Has Robinul ordered for secretions. -Will order lorazepam 0.5mg IV Q4h PRN agitation as well. -Patient has some purpling of right toes, left foot is also cold to touch. Periods of apnea occasionally. Expected to in next hours to days. Not stable for transfer out of facility. -PPS 10%. (2) Cardiogenic shock: (3) End stage renal disease: (4) Endocarditis: (5) Embolic stroke: Supervising Physician Co-Signing Physician Notes Chart reviewed, collaborated with BEVERLY Key patient seen and examined, patient's sister, daughter and niece at bedside. Patient minimally responsive, mild distress with clearing oral secretions. PE: Patient minimally responsive HEENT: EOMI, dry sclera-moisturizing eyedrops placed, dry mucous membranes Neck: Hyperextended Respirations: Unlabored CV: Regular rate Abdomen: No grimace with light palpation Neuro: Minimally responsive Agree with above note, assessment and plan as per BEVERLY Key -will continue to follow and provide support to family at bedside. Patient currently on comfort care-nearing end-of-life, discussed end-of-life issues at length with family at bedside. History of Present Illness Attending Physician: Carol Lanier MD History of Present Illness This 78 year old female patient with PMH dyslipidemia, coronary artery disease status post [place] in 2016 that required CABG x3 at [facility], end- stage renal disease on hemodialysis, hypothyroidism, obesity, diet controlled diabetes, who is a severe vasculopath with multiple failed AV fistula attempts, presented to the hospital a week ago with left shoulder pain. Patient was found to have elevated troponin, EKG changes, and NSTEMI. Patient not a good heart cath candidate, so she was being treated medically. She continued to have problems with bradycardia and lethargy. Patient was a code purple, then a code blue last week and was administered epinephrine. She was sent to the ICU on BiP AP and fortunately was able to stave off intubation with an intact mental status after her code. Patient quickly transitioned back to nasal cannula. Echocardiogram of the heart showed vegetation of the mitral valve. Perm cath was removed, the tip grew out strep bovis as well as her blood cultures. Unfortunately patient entered multi system organ failure. Creatinine increased to >7, not making any urine. Limited vascular access. Overall prognosis was quite poor and patient was able to verbalize that she did not want to continue with aggressive care and wanted to transition to comfort measures only. Palliative care consulted. Thank you kindly for this consult. Palliative care team will follow as needed. Allergies Allergy/AdvReac Type Severity Reaction Status Date / Time Penicillins Allergy Unknown SWELLING/HI Verified 01/25/19 19:50 VES oxycodone AdvReac Unknown nausea Verified 01/25/19 19:50 Home Medications Home Medications Medication Instructions Recorded Confirmed Type atorvastatin 40 mg PO HS 01/29/18 01/25/19 History calcium acetate 1,334 mg PO TIDM 01/29/18 01/25/19 History famotidine 20 mg PO QAM PRN 01/29/18 01/25/19 History lorazepam 1 mg PO QPM PRN 01/29/18 01/25/19 History aspirin 81 mg tablet,delayed 81 mg PO DAILY 03/03/18 01/25/19 History release tramadol 50 mg tablet 50 mg PO Q12 07/20/18 01/25/19 History ProRenal 1 tab PO DAILY 10/12/18 01/25/19 History calcium acetate 667 mg PO .WITH SNACKS 10/12/18 01/25/19 History cyclobenzaprine 5 mg PO BID PRN 10/12/18 01/25/19 History levothyroxine 100 mcg PO SUTUWEFRSA 10/12/18 01/25/19 History levothyroxine 150 mcg PO MOTH 10/12/18 01/25/19 History clopidogrel [Plavix] 75 mg PO DAILY 01/25/19 01/25/19 History ketoconazole 1 applic TOPICAL UD 01/25/19 01/25/19 History Patient History Medical History (Updated 02/01/19 @ 11:54 by BEVERLY Morgan) Aortic stenosis Bladder cancer REASON FOR UPCOMING SURGERY Cardiogenic shock Comfort measures only status Coronary artery disease MO 2015 WITH EMERGENT CABG X 3 AT [facility] [place]. RECENTLY TO [facility] ED WITH SHOULDER PAIN SIMILAR TO HER ANGINA. TROPONIN WAS ELEVATED, PT ADMITTED. NO EKGS CHANGES TO SUGGEST ACS. TROPONIN BUMP FELT 2/2 RENAL DISEASE. ECHO WHILE INPT 01/30 SHOWED EF 55-60%, MILD INF WALL HK. Diabetes DIET CONTROLLED ESRD (end stage renal disease) on dialysis DIALYSIS DAYS TUES, UR & SAT - WEEK OF SURGERY SCHEDULED DAYS ARE MON, THUR AND SAT FAILED AV FISTULA LUE, ALSO FAILED AND NOW INFECTION L GROIN GRAFT; CURRENTLY USING R CHEST PERMACATH History of hypertension History of myocardial infarction 2016...CATH (NO STENTS) "99% BLOCKED" - TRIPLE BYPASS History of recent hospitalization 02/01/18 - PAIN IN SHOULDER/ED VISIT [facility]/HEART ATTACK RULED OUT- CAUSE POSSIBLE MUSCULAR PROBLEM WITH SHOULDER Lethargy Morbid obesity with BMI of 40.0-44.9, adult Spinal stenosis Wound infection LEFT GROIN WOUND VAC PLACED 03/18/18. Had a graft placed in L thigh/groin ~6wks ago, subsequent infection and graft removed 02/23/18, now has wound vac. Surgical History Hemodialysis access, AV graft CLOGGED AND SINCE REMOVED /CURRENTLY: DIALYSIS CATH RIGHT CHEST History of back surgery X2/FUSIONS History of cardiac cath 2016...MO..NO STENTS..TRIPLE BYPASS History of colonoscopy History of heart bypass surgery MO..TRIPLE BYPASS 2016 History of hysterectomy Hx of cholecystectomy Family History Other Coronary heart disease Family history non-contributory Social History Preferred Language: Serbian Communication Ability: Effective Tax Services Manager Required: No Beliefs That Will Affect Care: Hinduism Hinduism Beliefs: Jain marital status: Current Living Situation: Family Current Living Situation Comment: lives with daughter and son-in-law current occupational status: retired current occupation: worked previously at [employer] Feels Safe at Home: Yes Smoking Status: Never smoker Second Hand Exposure: No ; Hx Alcohol Use: No Hx Substance Use: No Review of Systems Review of Systems: Unobtainable due to cognitive status and Unobtainable due to reduced consciousness Physical Exam Constitutional: + ill appearing and + obese; no acute distress ENMT: external ear and nose normal, oropharynx normal Respiratory: no labored breathing Auscultation: + diminished lung sounds Cardiovascular: Rate/Rhythm: regular rate (some missed beats) Extremities: + edema Skin: + mottling (right toes) dusky appearance Neurologic: + obtunded Time Spent Midlevel 70 minutes with >50% of the time spent at bedside with patient and family discussing comfort measures and end of life care.
[2019-02-01] MEDS ORDERED: MoRPHine SULF/NSS 250 MG/250 ML BTL IV SCH (20:45)
[2019-02-02] MEDS: ATROPINE SULFATE 1% OP SOLN 2 ML BTL SL SCH ×3 (00:23→07:48)
[2019-02-02] MEDS ORDERED: LORazepam 0.5 MG/1 ML VIAL IV PRN (07:50)
[2019-02-02] MEDS ORDERED: GLYCOPYRROLATE 0.2 MG/ML VIAL IV PRN (07:50)
[2019-02-02] MEDS: MoRPHine SULFATE 2 MG/ML CARP IV PRN ×2 (08:15→10:18)
[2019-02-02] MEDS: ATROPINE SULFATE 1% OP SOLN 5 ML BTL SL PRN ×3 (09:06→11:25)
--- NOTE | 2019-02-02 11:50 | Palliative Care Progress Note ---
Date of Service February 02, 2019 Assessment & Plan (1) Comfort measures only status: -Patient obtunded, but has labored breathing today. -More mottling. Still no urine output. -Periods of apnea, but using accessory muscles to breathe this morning. -Daughter and son-in-law at bedside. -Morphine infusion, titrate by 1mg/hr Q10 min PRN pain or SOB. -Lorazepam 0.5mg IV Q4h PRN anxiety/agitation. -Atropine 1% oph soln 4 drops SL Q1h PRN secretions. -Robinul 0.2mg IV Q4h PRN secretions. -Morphine 2mg IV Q1h PRN pain or SOB. Family counseled on the secondary side effects of morphine such as sedation and respiratory depression. -Patient expected to within hours. -PPS 10%. (2) Cardiogenic shock: (3) End stage renal disease: (4) Endocarditis: (5) Embolic stroke: Subjective Patient obtunded, but has labored breathing today. More mottling. Still no urine output. Periods of apnea, but using accessory muscles to breathe this morning. Daughter and son-in-law at bedside. Review of Systems Review of Systems: Unobtainable due to reduced consciousness Physical Exam Constitutional: + ill appearing and + obese ENMT: external ear and nose normal, oropharynx normal Respiratory: + labored breathing Cardiovascular: Rate/Rhythm: regular rate (some missed beats) Extremities: + edema Skin: + mottling (right toes) Neurologic: + obtunded Time Spent Midlevel 35 minutes with >50% of the time spent at bedside with patient and family discussing RESIDENTIAL DRIVER and end of life issues.
--- NOTE | 2019-02-02 12:26 | Hospitalist Progress Note ---
Date of Service February 02, 2019 Assessment & Plan (1) ST elevation: Pt is on hospice now per her family request. Appreciate palliative care recommendations. Patient has multiple organs failure. Pain management. Comfort care as requested. Patient is DNR/DNI. (2) Endocarditis: As per family request only comfort care. Patient is not operable candidate. Multiple organ failure. (3) Gram positive sepsis: As per family request we will continue comfort care. (4) Embolic stroke: Comfort care (5) CAD (coronary artery disease): Comfort care as per request of the family. (6) Lethargy: Comfort care (7) End stage renal disease: Per recommendation of Dr. Adamson assistant plant control operator and per family wishes patient patient will not continue hemodialysis due to her blood pressure being very low and having multiple organ failures and being hemodynamically unstable. Family requested only comfort care. (8) Hypothyroid: Continue home medicine levothyroxine 150 MCG's p.o. daily. (9) DM type 2 (diabetes mellitus, type 2): Glycemic control per pharmacy and comfort care. (10) Hyperlipidemia: Continue home medicine atorvastatin 40 mg p.o. nightly (11) Nihss score 11: Patient is not operable candidate. She has mitral valve vegetations and embolic stroke. We will continue comfort care as per family's request. (12) Bradycardia: Comfort care Subjective Patient seen and examined at the bedside with her family , chart, medications, telemetry reviewed.Patient family is at the bedside. Patient has agonal breathing and dying. Patient is not suffering. Pain medication is given as needed as patient is red in her face, showing signs of the pain, making grimaces.Patient is nonverbal due to recent massive embolic stroke that she suffered. Pt also declined hemodialysis. Review of Systems Review of Systems: All systems reviewed & are unremarkable except as noted in HPI & below Physical Exam Constitutional: WD/WN, vitals as above well developed, + ill appearing and + morbidly obese ENMT: external ear and nose normal, oropharynx normal Neck: trachea midline, no thyromegaly Respiratory: Auscultation: + crackles and + wheezes Cardiovascular: Rate/Rhythm: + bradycardic Heart Sounds: normal S1, normal S2, + abnormal opening sounds and + murmur Vessels: + JVD Extremities: + edema Gastrointestinal (Abdomen): normal bowel sounds, soft, nontender, no hepatosplenomegaly Musculoskeletal: no cyanosis or clubbing, extremities motor strength 5/5 Skin: no rashes, warm and dry Neurologic: awake Genitourinary: no vaginal lesions, no adnexal mass Lymphatic: no cervical or axillary lymphadenopathy PG Care Time/CCT Total # of Minutes Spent Total Time Spent with Patient: Total time spent is greater than 50% in coordination of care (as documented) at patient's floor/unit and/or counseling patient: (1) CAD (coronary artery disease) Associated angina: angina presence unspecified Coronary Disease-Associated Artery/Lesion type: unspecified vessel or lesion type [place] vs. transplanted heart: [place] heart Qualified Code(s): I25.10 - Atherosclerotic heart disease of [place] coronary artery without angina pectoris
--- NOTE | 2019-02-02 19:39 | Death Summary ---
Date of Service February 02, 2019 Pronouncement Note Contributing Factors (1) ST elevation: (2) Endocarditis: (3) Gram positive sepsis: (4) Embolic stroke: (5) CAD (coronary artery disease): (6) Lethargy: (7) End stage renal disease: (8) Hypothyroid: (9) DM type 2 (diabetes mellitus, type 2): (10) Hyperlipidemia: (11) Nihss score 11: (12) Bradycardia: Additional Data Attending physician: Carol Lanier MD Patient peacefully passed at 12:50 PM with her family being present in the room. Patient was on comfort care as per request of her family and patient herself.
--- NOTE | 2019-02-05 10:45 | Discharge Summary ---
Date of Service February 05, 2019 Admission HPI Per Admitting Provider 78 years old female with past medical history of dyslipidemia, coronary artery disease status post [place] in 2016 that required CABG x3 at [facility], end-stage renal disease on hemodialysis, hypothyroidism, obesity and diet-controlled diabetes. Patient is vasculopathic with multiple failed AV fistulas/grafts due to coagulation, currently on aspirin/Plavix for the right lower extremity graft in the process of maturing and right subclavian dialysis catheter. Patient stated that in 2016 she had this left shoulder pain for about a month before they start working her up for CAD and cardiac pain, then she required going to [facility] for CABG. Patient stated that she started having this left shoulder pain again, yesterday she went [place] shopping with her daughter and she kept having this left shou lder pain until 3 AM. Today she went with a friend shopping again and when she came back home the pain came while she is at rest in the left shoulder was severe localized in the left shoulder area. Presented to the ED and she was found to have a troponin of 4. Received 4 mg of morphine and the pain in the left shoulder resolved. Symptoms associated with nausea and dry heaving and dry mucous membranes. She also felt cold and covered herself with multiple blankets. In the ED she was found to have nonspecific ST-T wave changes and incomplete left bundle branch block. Her chest pain currently resolved she will be admitted and her troponin will be trended. Principal Diagnosis none Discharge Exam Constitutional WD/WN, vitals as above well developed, + ill appearing and + morbidly obese ENMT external ear and nose normal, oropharynx normal Neck trachea midline, no thyromegaly Respiratory Auscultation: + crackles and + wheezes Cardiovascular Rate/Rhythm: + bradycardic Heart Sounds: normal S1, normal S2, + abnormal opening sounds and + murmur Vessels: + JVD Extremities: + edema Gastrointestinal (Abdomen) normal bowel sounds, soft, nontender, no hepatosplenomegaly Musculoskeletal no cyanosis or clubbing, extremities motor strength 5/5 Skin no rashes, warm and dry Neurologic awake Genitourinary no vaginal lesions, no adnexal mass Lymphatic no cervical or axillary lymphadenopathy Discharge Data Allergies Allergy/AdvReac Type Severity Reaction Status Date / Time Penicillins Allergy Unknown SWELLING/HI Verified 01/25/19 19:50 VES oxycodone AdvReac Unknown nausea Verified 01/25/19 19:50 Consultations 01/25/19 18:36 ED Decision to Admit Stat 01/25/19 21:40 Consult Cardiology Routine 01/27/19 07:41 Consult Vascular Surgery Routine 01/27/19 15:34 Consult Infectious Diseases Routine 01/29/19 05:34 Consult Cardiology Routine 01/29/19 09:08 Consult Neurology Routine 01/31/19 14:13 Consult Palliative Care Routine Procedures Performed Operation Date: 01/28/19 13:00 Actual Procedures p Removal Of Perm Catheter, Moderate Concious Sedation 1425 to 1441(Right) - Trevor Wang MD Ordered Studies 01/27/19 07:47 US arterial duplex LE RT Urgent 01/27/19 09:53 CT angio femur RT wo/w con Routine 01/27/19 10:14 CT angio femur LT wo/w con Routine 01/28/19 21:51 CT head/brain wo con Stat 01/29/19 09:08 MR brain wo con Urgent Hospital Course (1) ST elevation: Pt is on hospice now per her family request. Appreciate palliative care recommendations. Patient has multiple organs failure. Pain management. Comfort care as requested. Patient is DNR/DNI. (2) Endocarditis: As per family request only comfort care. Patient is not operable candidate. Multiple organ failure. (3) Gram positive sepsis: As per family request we will continue comfort care. (4) Embolic stroke: Comfort care (5) CAD (coronary artery disease): Comfort care as per request of the family. (6) Lethargy: Comfort care (7) End stage renal disease: Per recommendation of Dr. Adamson digital media strategist and per family wishes patient patient will not continue hemodialysis due to her blood pressure being very low and having multiple organ failures and being hemodynamically unstable. Family requested only comfort care. (8) Hypothyroid: Continue home medicine levothyroxine 150 MCG's p.o. daily. (9) DM type 2 (diabetes mellitus, type 2): Glycemic control per pharmacy and comfort care. (10) Hyperlipidemia: Continue home medicine atorvastatin 40 mg p.o. nightly (11) Nihss score 11: Patient is not operable candidate. She has mitral valve vegetations and embolic stroke. We will continue comfort care as per family's request. (12) Bradycardia: Comfort care Total Time Total Time Spent Total Time Spent (In Minutes): over 30 min Discharge Plan Discharge Items Patient Disposition: Reason For Visit: NSTEMI Follow-up/Referrals: Jac Katz DO [Primary Care Provider] - Admission Data Admit Date/Time: 01/25/19 21:41 Other DC Date/Time DO NOT enter until pt leaves facility: 02/02/19 16:39
--- NOTE | 2019-02-11 06:46 | Coding Query ---
CODING QUERY To promote full compliance with coding requirements relating to patient care, provider participation is requested in all cases of marketing officer uncertainty. Please assist us with the question(s) below: Coding Question(s): Patient presenting with shoulder pain in ESRD. Rising Troponins. Seeking to clarify the etiology for rising Troponins . Documentation states STEMI . Cardiology mentions demand ischemia. Please check below the etiology for patient's shoulder pain. Thank you. Vincent Ervin [employer] [facility] Physician's Response(s): Demand ischemia STEMI PA Type 2 with demand ischemia Other/ Please document: answer:Demand ischemia Principal Diagnosis: "that condition established after study, to be chiefly responsible for occasioning the admission of the patient to the hospital for care." Co-Existing Principal Diagnosis: "when two or more diagnoses equally meet the criteria for principal diagnosis as determined by the circumstances of admission, diagnostic work up, and/or therapy provided, and the Alphabetic Index, Tabular List, or another coding guideline does not provide sequencing direction, any one of the diagnoses may be sequenced first." "When the physician has documented what appears to be a current diagnosis in the body of the record, but has not included the diagnosis in the final diagnostic statement, the physician should be asked whether the diagnosis should be added." (Source [facility] 2 QTR90. p3-4) [facility]
== END 2019-02-02 16:39 | disposition expired | DRG 314 ==
LOC: ED 16:35 → SUATTDRO 21:41 → 2E 21:41 → 1E 01-29 15:37 → 4W 01-30 12:56